=== PATIENT | female | born 1945 | race Caucasian/White ===

== ENCOUNTER 2024-02-22 01:16 | Day surgery (SDC) | payer MEDICARE, SELFPAY ==
[2024-02-01 13:06] VITALS: BMI 35.0
--- NOTE | 2024-02-03 10:38 | PC.NURSE ---
Spoke with _PATIENT_ regarding medication _ELIQUIS__. Pt. verbalizes understanding that the last dose of _ELIQUIS is to be taken on 02/02/2024 and the Endoscopist will instruct them when to restart after the procedure.
[2024-02-22 06:25] VITALS: BP 187/83; PULSE 56; RESP 18; TEMP 36.1; O2SAT 99; BMI 36.1
[2024-02-22] MEDS: LACTATED RINGERS 1,000 ML 150 ML IV CONT (06:28)
--- NOTE | 2024-02-22 07:24 | WPDANESEPPF ---
Anes - Initial Pre Proc Eval Procedure: Operation Date: 02/22/24 07:30 Proposed Procedures p Esophagogastroduodenoscopy & Colonoscopy - Dilip Villa MD Date/Time: 02/22/24 07:24 Surgeon: Dilip Villa MD Pre Op Diagnosis: GERD, Personal hx. colon polyps Patient Data Age: 78 Gender: F Height: 1.73 m Weight: 107.8 kg Last Vital Signs Temp 96.9 F L 02/22/24 06:25 Pulse 56 L 02/22/24 06:25 Resp 18 02/22/24 06:25 BP 187/83 H 02/22/24 06:25 Pulse Ox 99 02/22/24 06:25 O2 Del Method Room Air 02/22/24 06:25 Allergies Allergy/AdvReac Type Severity Reaction Status Date / Time adhesive tape Allergy Severe Swelling Verified 02/22/24 06:21 amlodipine Allergy Severe Swelling Verified 02/22/24 06:21 LOWER EXT. Iodinated Contrast Media Allergy Severe HEART Verified 02/22/24 06:21 ARRYTHMIA morphine Allergy Severe Dizziness Verified 02/22/24 06:21 codeine Allergy Intermediate Hallucinati Verified 02/22/24 06:21 ng latex Allergy Intermediate Itching Verified 02/22/24 06:21 Penicillins Allergy Intermediate Hives Verified 02/22/24 06:21 prednisone Allergy Intermediate HEART Verified 02/22/24 06:21 PALPITATIONS hydromorphone AdvReac Intermediate Nausea and Verified 02/22/24 06:21 Vomiting Sulfa (Sulfonamide AdvReac Intermediate Nausea and Verified 02/22/24 06:21 Antibiotics) Vomiting Home Medications Medication Instructions Recorded Confirmed Type Tums 500 1,000 mg PO DAILY 02/01/24 02/22/24 History apixaban 5 mg tablet (Eliquis) 5 mg PO BID 02/01/24 02/01/24 History aspirin 81 mg chewable tablet 81 mg PO DAILY 02/01/24 02/01/24 History fluticasone propionate 50 2 mcg intranasal DAILY PRN 02/01/24 02/22/24 History mcg/actuation nasal Congestion spray,suspension isosorbide mononitrate 30 mg 60 mg PO DAILY 02/01/24 02/01/24 History tablet,extended release 24 hr loratadine 10 mg tablet 10 mg PO DAILY PRN Allergy Symptoms 02/01/24 02/22/24 History losartan 50 mg tablet 50 mg PO BID 02/01/24 02/22/24 History metoprolol tartrate 50 mg tablet 50 mg PO BID 02/01/24 02/01/24 History nitroglycerin 0.4 mg sublingual 0.4 mg sublingual PRN PRN Angina 02/01/24 02/01/24 History tablet omeprazole 20 mg capsule,delayed 20 mg PO DAILY 02/01/24 02/22/24 History release rosuvastatin 20 mg tablet 20 mg PO HS 02/01/24 02/22/24 History spironolactone 25 mg tablet 25 mg PO DAILY 02/01/24 02/22/24 History Patient hx anesthesia problems: none Family hx anesthesia problems: none Results Review: All pre-operative results and documents have been reviewed as part of the pre-operative evaluation. [facility] Social History Social History Smoking status: Never smoker Alcohol intake: current Substance use: current Substance use type: does not use Living arrangements: with family Spiritual care concerns: No Anes - Eval Final PreProcedure Day of Procedure 02/22/24 07:24 Patient weight: obese Heart: regular rate and rhythm Lungs: clear to auscultation Airway: Mallampati scale class II Neurological: alert and oriented Last oral intake: >/= 8 hours ASA classification: III Emergent: no Anesthetic plan: proceed Anesthesia type and monitoring: general GIVS and standard monitoring Results Review: All pre-operative results and documents have been reviewed as part of the pre-operative evaluation. Informed Consent: The patient's anesthetic plan and its attendant risks and benefits were discussed with the patient/family/POA. Questions were solicited and answers provided to the satisfaction of the patient/family/POA.
--- NOTE | 2024-02-22 07:41 | PM.HPGS ---
History of Present Illness History of Present Illness Consent: Risks, benefits, and alternatives have been discussed and questions answered. Patient agrees to proceed with procedure. Chief complaint: GERD, Personal hx. colon polyps Narrative: Liana Hodges is a 78 year old female with colon polyp 5 years ago, also h/o GERD on ppi, last egd years ago Review of Systems Review of Systems: All systems reviewed & are unremarkable except as noted in HPI and below PMFSH Past Medical History Medical History (Updated 02/22/24 @ 07:41 by Dilip Villa MD) Colon polyp GERD (gastroesophageal reflux disease) Social History Social History Smoking status: Never smoker Alcohol intake: current Substance use: current Substance use type: does not use Living arrangements: with family Spiritual care concerns: No Meds Home Medications and Allergies Home Medications Medication Instructions Recorded Confirmed Type Tums 500 1,000 mg PO DAILY 02/01/24 02/22/24 History apixaban 5 mg tablet (Eliquis) 5 mg PO BID 02/01/24 02/01/24 History aspirin 81 mg chewable tablet 81 mg PO DAILY 02/01/24 02/01/24 History fluticasone propionate 50 2 mcg intranasal DAILY PRN 02/01/24 02/22/24 History mcg/actuation nasal Congestion spray,suspension isosorbide mononitrate 30 mg 60 mg PO DAILY 02/01/24 02/01/24 History tablet,extended release 24 hr loratadine 10 mg tablet 10 mg PO DAILY PRN Allergy Symptoms 02/01/24 02/22/24 History losartan 50 mg tablet 50 mg PO BID 02/01/24 02/22/24 History metoprolol tartrate 50 mg tablet 50 mg PO BID 02/01/24 02/01/24 History nitroglycerin 0.4 mg sublingual 0.4 mg sublingual PRN PRN Angina 02/01/24 02/01/24 History tablet omeprazole 20 mg capsule,delayed 20 mg PO DAILY 02/01/24 02/22/24 History release rosuvastatin 20 mg tablet 20 mg PO HS 02/01/24 02/22/24 History spironolactone 25 mg tablet 25 mg PO DAILY 02/01/24 02/22/24 History Allergies Allergy/AdvReac Type Severity Reaction Status Date / Time adhesive tape Allergy Severe Swelling Verified 02/22/24 06:21 amlodipine Allergy Severe Swelling Verified 02/22/24 06:21 LOWER EXT. Iodinated Contrast Media Allergy Severe HEART Verified 02/22/24 06:21 ARRYTHMIA morphine Allergy Severe Dizziness Verified 02/22/24 06:21 codeine Allergy Intermediate Hallucinati Verified 02/22/24 06:21 ng latex Allergy Intermediate Itching Verified 02/22/24 06:21 Penicillins Allergy Intermediate Hives Verified 02/22/24 06:21 prednisone Allergy Intermediate HEART Verified 02/22/24 06:21 PALPITATIONS hydromorphone AdvReac Intermediate Nausea and Verified 02/22/24 06:21 Vomiting Sulfa (Sulfonamide AdvReac Intermediate Nausea and Verified 02/22/24 06:21 Antibiotics) Vomiting Vital Signs Vital Signs - 24 hr 02/22/24 06:25 Temperature 96.9 F L Pulse Rate 56 L Respiratory Rate 18 Blood Pressure 187/83 H Pulse Oximetry 99 Oxygen Delivery Room Air Exam Const: General: comfortable and no acute distress HENMT: Face/Nose/Sinus: Normal nares present Eyes: General: appearance normal, both eyes and all related structures Neck: Neck: no JVD Resp: Auscultation: clear to auscultation bilaterally Cardio: Rate: regular rate Rhythm: regular rhythm GI: Inspection: non-distended GI Palp: Yes Soft to palpation Skin: General skin exam: normal color Neuro: General: gait normal Speech: normal speech Extrem: General: normal to inspection Psych: Mental Status: mental status grossly normal Assessment and Plan Assessment and plan (1) GERD (gastroesophageal reflux disease): Code(s): K21.9 - Gastro-esophageal reflux disease without esophagitis Status: Acute Assessment and Plan: egd (2) Colon polyp: Code(s): K63.5 - Polyp of colon Status: Acute Assessment and Plan: colonoscopy
--- NOTE | 2024-02-22 07:57 | SUR.OPER ---
EGD: [id number] COLON: Start 7413
[2024-02-22 08:11] VITALS: BP 117/43; PULSE 50; RESP 18; O2SAT 98
[2024-02-22 08:21] VITALS: BP 132/45; PULSE 47; RESP 15; O2SAT 100
[2024-02-22 08:31] VITALS: BP 143/49; PULSE 42; RESP 14; O2SAT 100
== END 2024-02-22 08:52 | disposition home or self-care (01) ==
PROVIDERS: PCP Nurse Practitioner; Referring Provider Nurse Practitioner; Visit Provider Internal Medicine Gastroenterology
PROC: 0DJ08ZZ Inspection of Upper Intestinal Tract, Via Natural or Artificial Opening Endoscopic (ICD-10-PCS; CPT 43235; principal; 2024-02-22 07:30)
DX: Z12.11 Encounter for screening for malignant neoplasm of colon (principal); K21.00 Gastro-esophageal reflux disease with esophagitis, without bleeding; K22.2 Esophageal obstruction; K29.50 Unspecified chronic gastritis without bleeding; K64.8 Other hemorrhoids; K57.30 Diverticulosis of large intestine without perforation or abscess without bleeding; E66.9 Obesity, unspecified; Z68.36 Body mass index [BMI] 36.0-36.9, adult; Z79.01 Long term (current) use of anticoagulants; Z79.82 Long term (current) use of aspirin; Z86.010 Personal history of colon polyps
CPT/HCPCS: 43239; 43249; G0105; 88305; C1726; J2704; J7120

== ENCOUNTER 2024-02-29 22:41 | Emergency (ER) | payer MEDICARE, SELFPAY ==
[2024-02-29] VITALS (10 sets, daily range): BP systolic 163–186; BP diastolic 51–74; PULSE 59–72; RESP 10–25; TEMP 36.6; O2SAT 94–99
--- NOTE | ~2024-02-29 | XR_ITS ---
EXAMINATION: XR chest 1V portable Exam Date/Time: 02/29/2024 22:55 CDT HISTORY: chest pain Comparison: The. RESULT: Lines, tubes, and devices: None. Lungs and pleura: Streaky bibasilar scar/atelectasis, otherwise clear. Cardiomediastinal silhouette: Normal heart size.. Other: No acute osseous or upper abdominal finding. Hyperdensity over the midthoracic spine. IMPRESSION: No acute cardiopulmonary process. Hyperdensity over the midthoracic spine, possibly representing summation artifact. A lateral view of the chest and/or thoracic spine radiographs would be helpful for further evaluation, particularly if there is associated back pain. Reviewed, dictated and finalized at location K. IMPRESSION: No acute cardiopulmonary process. Hyperdensity over the midthoracic spine, possibly representing summation artifa ct. A lateral view of the chest and/or thoracic spine radiographs would be help ful for further evaluation, particularly if there is associated back pain.
--- NOTE | 2024-02-29 22:43 | ECG_ITS ---
Test Date: 2024-02-29 22:48:41 Measurements Intervals [place] Rate: 65 P: 42 NE: 280 QRS: -2 QRSD: 106 T: 70 QT: 396 QTc: 413 Interpretive Statements SINUS RHYTHM WITH FIRST DEGREE AV BLOCK DELAYED PRECORDIAL R/S TRANSITION LEFT VENTRICULAR HYPERTROPHY AND ST-T CHANGE MINIMAL Q WAVES- HIGH LATERAL LEADS BASELINE ARTIFACT- I, II, III BORDERLINE ECG No previous ECG available for comparison Electronically Signed On 03-01-2024 05:44:25 CDT by Arnel Blake D.O.
[2024-02-29 22:51] LABS: Basophils Absolute Auto 0.1 K/mm3 (0.0-0.1); Basophils Percent Auto 0.9 % (0.2-1.2); Eosinophils Absolute Auto 0.2 K/mm3 (0-0.3); Eosinophils Percent Auto 1.9 % (0-4.4); Hemoglobin 12.6 g/dL (12.0-15.0); Immature Granulocyte Absolute 0.02 K/mm3 (0.00-0.031); Immature Granulocyte Percent A 0.3 % (0-0.5); Lymphocytes Absolute Auto 2.79 K/mm3 (0.9-3.2); Mean Corpuscular HGB Conc 33.2 g/dl (32-36); Mean Corpuscular Hemoglobin 31.3 pg (26-34); Mean Corpuscular Volume 94.3 fl (80-100); Monocytes Absolute Auto 0.8 K/mm3 (0.1-0.6); Monocytes Percent Auto 10.8 % (2.6-8.5); Neutrophils Absolute Auto 3.9 K/mm3 (1.3-6.7); Neutrophils Percent Auto 50.1 % (45.5-73.1); Platelet Count Result 288 k/mm3 (150-375); Red Blood Count 4.03 M/mm3 (4.2-5.4); Red Cell Distribution Width 12.3 % (11.5-14.5); White Blood Count 7.8 K/mm3 (4.5-10.0)
[2024-02-29 23:02] LABS: INR 1.1; Prothrombin Time 14.2 Seconds (11.1-14.7)
[2024-02-29 23:03] LABS: Alanine Aminotransferase 13 U/L (6-35); Albumin Level 4.5 g/dL (3.5-5.1); Alkaline Phosphatase 127 U/L (38-126); Anion Gap 10 mmol/L (4-12); Aspartate Amino Transferase 22 U/L (14-36); Bilirubin,Total 0.4 mg/dL (0.2-1.3); Blood Urea Nitrogen 13 mg/dL (7-17); Calcium 9.3 mg/dL (8.4-10.2); Carbon Dioxide 26 mmol/L (22-30); Chloride 100 mmol/L (98-107); Estimated CRCL calculation 68 ml/min; Estimated Glomerular Filt Rate > 60; Glucose 107 mg/dL (65-110); Lipase 118 U/L (23-300); Partial Thromboplastin Time 37.7 Seconds (22.3-36.8); Potassium 3.9 mmol/L (3.4-5.0); Sodium 136 mmol/L (137-145)
[2024-02-29 23:15] LABS: Troponin I < 0.012 ng/mL (0.000-0.034)
[2024-03-01] VITALS (30 sets, daily range): BP systolic 135–192; BP diastolic 54–80; PULSE 51–67; RESP 10–23; TEMP 36.6; O2SAT 95–100
--- NOTE | 2024-03-01 00:08 | ED.GENADULT ---
HPI - General Adult General Chief complaint: Chest Pain Stated complaint: CHEST PAIN W/ CARDIAC HISTORY Time Seen by Provider: 02/29/24 23:00 History of Present Illness HPI narrative: Patient is a 78-year-old female who presents emergency department with chief complaint of chest pain. Patient reports that she has prior history of cardiac disease has approximately 5 stents patient reports he has history of hypertension. Patient reports that she had some discomfort in her chest also was blood pressure was running high patient states the discomfort in her chest she has very mild Related Data Home Medications Medication Instructions Recorded Confirmed Tums 500 1,000 mg PO DAILY 02/01/24 02/22/24 apixaban 5 mg tablet (Eliquis) 5 mg PO BID 02/01/24 02/22/24 aspirin 81 mg chewable tablet 81 mg PO DAILY 02/01/24 02/22/24 fluticasone propionate 50 2 mcg intranasal DAILY PRN 02/01/24 02/22/24 mcg/actuation nasal Congestion spray,suspension isosorbide mononitrate 30 mg 60 mg PO DAILY 02/01/24 02/22/24 tablet,extended release 24 hr loratadine 10 mg tablet 10 mg PO DAILY PRN Allergy Symptoms 02/01/24 02/22/24 losartan 50 mg tablet 50 mg PO BID 02/01/24 02/22/24 metoprolol tartrate 50 mg tablet 50 mg PO BID 02/01/24 02/22/24 nitroglycerin 0.4 mg sublingual 0.4 mg sublingual PRN PRN Angina 02/01/24 02/22/24 tablet omeprazole 20 mg capsule,delayed 20 mg PO DAILY 02/01/24 02/22/24 release rosuvastatin 20 mg tablet 20 mg PO HS 02/01/24 02/22/24 spironolactone 25 mg tablet 25 mg PO DAILY 02/01/24 02/22/24 Allergies Allergy/AdvReac Type Severity Reaction Status Date / Time adhesive tape Allergy Severe Swelling Verified 02/22/24 06:21 amlodipine Allergy Severe Swelling Verified 02/22/24 06:21 LOWER EXT. Iodinated Contrast Media Allergy Severe HEART Verified 02/22/24 06:21 ARRYTHMIA morphine Allergy Severe Dizziness Verified 02/22/24 06:21 codeine Allergy Intermediate Hallucinati Verified 02/22/24 06:21 ng latex Allergy Intermediate Itching Verified 02/22/24 06:21 Penicillins Allergy Intermediate Hives Verified 02/22/24 06:21 prednisone Allergy Intermediate HEART Verified 02/22/24 06:21 PALPITATIONS hydromorphone AdvReac Intermediate Nausea and Verified 02/22/24 06:21 Vomiting Sulfa (Sulfonamide AdvReac Intermediate Nausea and Verified 02/22/24 06:21 Antibiotics) Vomiting Review of Systems Review of Systems: A 10 system review of systems was completed on the patient and is negative except for what is stated in the HPI. Nursing and ancillary documentation was reviewed. [facility] Past Medical History Medical History Colon polyp GERD (gastroesophageal reflux disease) Social History Social History Smoking status: Never smoker Alcohol intake: current Substance use: current Substance use type: does not use Living arrangements: with family Spiritual care concerns: No Exam Narrative: GENERAL: Well-appearing, well-nourished, and in no acute distress. HEAD: Normocephalic, atraumatic. EYES: PERRLA and EOMI. ENT: Nares clear, no rhinorrhea or epistaxis. Mucous membranes moist. NECK: Supple. CHEST: Clear to auscultation. No respiratory distress. HEART: Regular rate and rhythm. No murmur heard. Normal peripheral pulses. ABDOMEN: Soft, nontender, nondistended, normal active bowel sounds. EXTREMITIES: Normal range of motion. No edema. SKIN: Warm, dry, no rash. NEURO: No focal deficits. Alert and oriented x3. PSYCH: Normal mood and affect. Course Vital Signs Vital signs: Vital Signs Temperature 36.6 C 02/29/24 22:30 Pulse Rate 72 02/29/24 22:30 Respiratory Rate 16 02/29/24 22:30 Blood Pressure 185/74 H 02/29/24 22:30 Pulse Oximetry 97 02/29/24 22:30 Oxygen Delivery Room Air 02/29/24 22:30 Temperature 36.6 C 02/29/24 22:3
--- NOTE | 2024-03-01 01:50 | ECG_ITS ---
Test Date: 2024-03-01 01:57:06 Measurements Intervals [place] Rate: 57 P: 17 ID: 286 QRS: -8 QRSD: 104 T: 28 QT: 406 QTc: 396 Interpretive Statements SINUS BRADYCARDIA WITH FIRST DEGREE AV BLOCK DELAYED PRECORDIAL R/S TRANSITION LEFT VENTRICULAR HYPERTROPHY MINIMAL Q WAVES- HIGH LATERAL LEADS BORDERLINE ECG Compared to ECG 02/29/2024 22:48:41 HEART RATE HAS DECREASED Electronically Signed On 03-01-2024 05:48:17 CDT by Arnel Blake D.O.
[2024-03-01 02:24] LABS: Troponin I 0.013 ng/mL (0.000-0.034)
== END 2024-03-01 03:41 | disposition home or self-care (01) ==
PROVIDERS: Emergency Provider Emergency Medicine; PCP Nurse Practitioner
DX: R07.89 Other chest pain (principal); I10 Essential (primary) hypertension; K21.9 Gastro-esophageal reflux disease without esophagitis; Z95.5 Presence of coronary angioplasty implant and graft; Z86.010 Personal history of colon polyps; Z79.01 Long term (current) use of anticoagulants; Z79.82 Long term (current) use of aspirin; Z79.899 Other long term (current) drug therapy; I44.0 Atrioventricular block, first degree; I51.7 Cardiomegaly
CPT/HCPCS: 36415; 71045; 80053; 83690; 84484; 85025; 85610; 85730; 93005; 99284

== ENCOUNTER 2024-10-28 19:57 | Inpatient (IN) | payer MEDICARE, SELFPAY ==
--- NOTE | ~2024-10-28 | XR_ITS ---
XR chest 2V Ordering provider: Ankur Dumont History: 78 years Female with . weakness . Comparison: February 29, 2024 FINDINGS: MEDIASTINUM: The cardiac silhouette is not enlarged. Calcification in the subcarinal lymph nodes. LUNGS: No infiltrates, effusions or pneumothorax. OTHER: No free air under the diaphragm. Degenerative changes of the spine. IMPRESSION: No acute cardiopulmonary pathology. Reviewed, dictated and finalized at location A.
--- NOTE | ~2024-10-28 | MR_ITS ---
EXAMINATION: MR brain/brain stem wo/w con DATE: 10/30/2024 15:30 INDICATION: Left clivus and petrous lesion TECHNIQUE: Magnetic resonance imaging (MRI) of the brain and brainstem was performed without and with 20 mL ProHance intravenous contrast. Sequences included sagittal and axial T1-weighted SE, axial dif fusion-weighted FS SE, axial 3D SWAN, axial T2-weighted FLAIR, and axial T2-weighted FSE. Postcontras t axial and coronal T1-weighted SE was obtained. Apparent diffusion coefficient (ADC) maps were creat ed. COMPARISON: None. FINDINGS: There are no areas of restricted diffusion to suggest acute infarction. No intracranial hemorrhage or abnormal intracranial mass lesion. There are no intraparenchymal signal abnormalities seen on the ot her pulse sequences. The ventricles are symmetric and normal in size. There are no abnormal intracran ial, extra-axial fluid collections. Flow voids are seen in the cerebral arteries on the T2-weighted s equences consistent with their expected patency. Mild mucosal thickening in the paranasal sinuses wit h left maxillary sinus mucous retention cyst. Visualized orbits and soft tissues are unremarkable. Th ere are no areas of abnormally enhancing brain lesions on the post contrast images. High T2 and low T 1 signal without restricted diffusion or evident enhancement of a cystic appearing lytic lesion invol ving the left side of the clivus and the left petrous apex. IMPRESSION: 1. Nonenhancing cystic-appearing lytic lesion involving the left side of the clivus and the left sage ous apex. Constellation of findings most consistent with either a neuroenteric cyst, arachnoid cyst, intraosseous extension of an epidermoid cyst or ecchordosis physaliphora. Cholesteatoma would be less likely given the lack of restricted diffusion and there is no evident enhancement to suggest chordom a or other malignant neoplasm. Reviewed, dictated and finalized at location A. IMPRESSION: 1. Nonenhancing cystic-appearing lytic lesion involving the left side of the cl ivus and the left petrous apex. Constellation of findings most consistent with either a neuroenteric cyst, arachnoid cyst, intraosseous extension of an epider moid cyst or ecchordosis physaliphora. Cholesteatoma would be less likely given the lack of restricted diffusion and there is no evident enhancement to sugges t chordoma or other malignant neoplasm.
--- NOTE | ~2024-10-28 | NM_ITS ---
EXAMINATION: NM GI bleeding DATE: 11/03/2024 12:06 INDICATION: Gastrointestinal bleed TECHNIQUE: 22.6 mCi Tc 99m in vitro labeled red cells administered intravenously. Scintigraphic imag es of the abdomen were obtained through 1 hour. FINDINGS: No pattern of abnormal activity is seen in the abdomen or pelvis to suggest gastrointestina l hemorrhage. IMPRESSION: 1. No scintigraphic evidence for active gastrointestinal bleeding. Reviewed, dictated and finalized at location A.
--- NOTE | ~2024-10-28 | CT_ITS ---
EXAMINATION: CT brain wo con DATE: 10/29/2024 02:52 INDICATION: Weakness and nausea TECHNIQUE: Computed tomography (CT) of the head was performed without intravenous contrast. Sagittal and coronal reconstructions were performed. The mA was adjusted according to patient size. Iterative reconstruction technique was employed. The dose-length product was 605.33 mGy-cm. COMPARISON: None FINDINGS: No acute intracranial hemorrhage, acute infarction or abnormal extra axial fluid collection. Ventricl es are normal and symmetric. No mass/mass effect. The orbits, paranasal sinuses and mastoid air cells are normal. Large likely benign lytic lesion with narrow zone of transition with thin sclerotic dillon ins involving the left side of the clivus and the left petrous apex. The region of ostial lysis is fi lled with fluid attenuation with no evident soft tissue component. IMPRESSION: 1. No acute intracranial process. 2. Nonaggressive appearing likely chronic benign lytic lesion involving the left side of the clivus a nd the left petrous apex without evident solid soft tissue component. Recommend 0further evaluation w ith pre and postcontrast MRI. Reviewed, dictated and finalized at location A. IMPRESSION: 1. No acute intracranial process. 2. Nonaggressive appearing likely chronic benign lytic lesion involving the lef t side of the clivus and the left petrous apex without evident solid soft tissu e component. Recommend 0further evaluation with pre and postcontrast MRI.
--- NOTE | ~2024-10-28 | CT_ITS ---
CT chest abdomen pelvis wo con Ordering provider: Bill Arteaga MD History: 78 years Female with . ? GI bleed . Comparison: None. Technique: CT chest, abdomen and pelvis without IV and without oral contrast. Radiation reduction alise hnique utilized.The dose-length product was 1845.01 mGy-cm. FINDINGS: CHEST: --VISUALIZED THORACIC INLET: Normal. --MEDIASTINUM: Aorta/coronary arteries: Mild atheromatous disease. Heart/other: The heart is not enlarged. Lymph nodes: No mediastinal or hilar adenopathy. Subcarinal calcified lymph nodes are noted. --LUNGS: No pulmonary nodules or masses. No infiltrates or effusions. No pneumothorax. --MUSCULOSKELETAL: Soft tissues: The superficial soft tissues are normal. Bones: Age appropriate degenerative changes of the spine. No suspicious bony lytic or sclerotic lesio ns. ABDOMEN/PELVIS: --MUSCULOSKELETAL: Bones: Age appropriate degenerative changes of the spine. No suspicious bony lytic or sclerotic lesio ns. Superficial soft tissues: The superficial soft tissues are normal. --UPPER ABDOMINAL ORGANS: Liver: Tiny cyst is seen in segment #8. Gallbladder: Contracted. Spleen: Normal. Calcified granulomas. Stomach/duodenum: Normal. Pancreas: Normal. Adrenals: Normal. Kidneys: Tiny cyst in the right kidney upper pole. Minimal fullness of the right ureter with no stone s. Small hyperdense area seen in the left kidney midpole which may be hemorrhagic cyst or a tiny mass . Follow-up advised. --PELVIC ORGANS: The bladder is underfilled with thickened wall. Evaluation for cystitis advised. No bladder stones. --BOWEL AND MESENTERY: Colon: No evidence of diverticulitis. Hyperdense material seen in the left side of the colon distally in the descending colon and in the diverticula of the sigmoid colon. Possibility of blood cannot be excluded although this likely. Colonoscopy is advised. No evidence of appendicitis. Small Bowel: Normal. No obstruction. Peritoneum/mesentery: No free air or free fluid. No mesenteric lymphadenopathy. --RETROPERITONEUM: Aneurysmal dilatation the distal aorta measuring 2.5 x 2.4 cm is noted. Follow-up advised. Mild atheromatous disease of the abdominal aorta. No retroperitoneal lymphadenopathy. IMPRESSION: CHEST: 1. No acute cardiopulmonary pathology. 2. Subcarinal calcified lymph nodes. ABDOMEN/PELVIS: 1. No evidence of appendicitis, diverticulitis or intestinal obstruction. 2. Hyperdense material in the descending and sigmoid colon. Blood cannot be excluded. Colonoscopy ad vised. 3. Small hyperdense area in the left kidney lower pole. Follow-up advised. 4. Small aneurysmal dilatation in the distal aorta measuring 2.5 x 2.4 cm. Reviewed, dictated and finalized at location A. IMPRESSION: CHEST: 1. No acute cardiopulmonary pathology. 2. Subcarinal calcified lymph nodes. ABDOMEN/PELVIS: 1. No evidence of appendicitis, diverticulitis or intestinal obstruction. 2. Hyperdense material in the descending and sigmoid colon. Blood cannot be ex cluded. Colonoscopy advised. 3. Small hyperdense area in the left kidney lower pole. Follow-up advised. 4. Small aneurysmal dilatation in the distal aorta measuring 2.5 x 2.4 cm.
--- OUTSIDE RECORDS SUMMARY | 2024-10-28 19:59 | XMS_ITS | Encounter Summary ---
Author Organization [facility] Address [address] [place] [address] Care Team Providers Care Spine Surgeon Name Role Phone Mary Delgado MD Primary Care Provider [phone] Reason for Visit * Reason Comments Medication Refill Encounter Details Date Type Department Care Team ([facility] st Contact Info) Description 09/27/2015 Refill [facility] [place] [address] [place] [address] [address] [place] [phone] Mary Delgado MD [address] [place] [phone] Social History Tobacco Use Types Packs/Day Years Used Date Smoking Tobacco: Never Smokeless Tobacco: Never Alcohol Use Standard Drinks/Week Comments No 0 (1 standard drink = 0.6 oz pur e alcohol) Comments No Sex and Gender Information Value Date Recorded Sex Assigned at Not on file Legal Sex Female 1:18 PM CDT Gender Identity Not on file Sexual Orientation Not on file Occupation Industry Job Start Date Job End Date Not on file Not on file Not on file Not on file Not on file Not on file Not on file Not on file documented as of this encounter Plan of Treatment Not on file documented as of this encounter Visit Diagnoses Not on filedocumented in this encounter Additional Health Concerns Infection Onset Date Last Indicated Resolved Time C Diff 11/02/2019 12/29/2019 10/29/2022 1:00 AM CDT R/O COVID-19 05/08/2020 05/09/2020 05/10/2020 3:15 PM DIRECTOR GLOBAL COVID-19 05/09/2020 05/09/202006/08/2020 1:16 AM DIRECTOR GLOBAL COVID-19 03/05/2022 03/05/2022 03/25/2022 1:16 AM CDT documented as of this encounter Care Teams Spine Surgeon Relationship Specialty Start Date End Date Mary Delgado MD [address] [place] [phone] PCP - General Family Practice 12/22/14 02/18/24 documented as of this encounter
--- OUTSIDE RECORDS SUMMARY | 2024-10-28 19:59 | XMS_ITS | Clinical Summary ---
Author Organization [facility] Address [address] [place] [address] Care Team Providers Care Competitive Intelligence Analyst Name Role Phone Mary Delgado MD Primary Care Provider [phone] Source Comments [facility],non-owned Affiliates and Associated Physician Practices is amultiple site organization consisting of ambulatory clinics and hospital sitesin [place], [place], [place] and [place]. This disclosure is being madepursuant to the Care Everywhere program and may not contain all information available regarding this patient. Last updated 18.[facility] Allergies Active Allergy Reactions Criticality Noted Date Comments Amlodipine Base Swelling 02/28/2021 Codeine Vision Changes 02/28/2021 Hydromorphone Nausea and/or Vomiting,Other Low 10/28/2013 Hypertension Latex Rash,Itching Medium 10/28/2013 Morphine Dizziness,Headache 11/05/2010 Other 11/05/2010 Dye used in cardiac cath Penicillins Rash,Itching Medium 11/05/2010 Sulfa Drugs Itching 11/05/2010 Medications * Be aware that medications may not be up to date on this document. Alwaysverify current medications with the patient. simvastatin (ZOCOR) 40 MG tablet Take 40 mg by mouth at bedtime Active ticagrelor (BRILINTA) 90 MG tablet Take 90 mg by mouth 2 times daily Active aspirin (ASPIRIN) 81 MG chew tablet Take 81 mg by mouth once daily Active omeprazole (PRILOSEC) 20 MG capsule Take 20 mg by mouth once daily Active nitroGLYCERIN (NITROSTAT) 0.4 MG tablet Dissolve 1 tablet under the tongue every 5 minutes as needed for Chest Pain 1 Active spironolactone (ALDACTONE) 25 MG tablet Take 25 mg by mouth once daily 1 Active losartan (COZAAR) 50 MG tablet Take 50 mg by mouth 2 times daily 1 Active metoprolol tartrate (LOPRESSOR) 50 MG tablet Take 50 mg by mouth 2 times daily 1 Active acetaminophen (TYLENOL) 325 MG tablet Take 650 mg by mouth every 6 hours as needed for Fever, Pain or Headache Maximum allowable Acetaminophen amount = 4 Grams (4000 mg) / 24 hours. Active calcium carbonate (TUMS) 750 MG chew tablet Take 600 mg by mouth every 6 hours as needed for Indigestion 0 Active loratadine (CLARITIN) 10 MG tablet Take 10 mg by mouth once daily as needed for Allergies Active Active Problems Problem Noted Date Diagnosed Date Chest pain 02/28/2021 Social History Tobacco Use Types Packs/Day Years Used Date Smoking Tobacco: Never Smokeless Tobacco: Never Alcohol Use Standard Drinks/Week Comments No 0 (1 standard drink = 0.6 oz pur e alcohol) Comments Unknown Sex and Gender Information Value Date Recorded Sex Assigned at Not on file Legal Sex Female 11:48 AM JIG MAKER Gender Identity Not on file Sexual Orientation Not on file Last Filed Vital Signs Vital Sign Reading Time Taken Comments Blood Pressure 119/60 03/01/2021 4:30 PM CDT Pulse 57 03/01/2021 4:30 PM CDT Temperature 36.6 C (97.9 F) 03/01/2021 4:30 PM CDT Respiratory Rate 16 03/01/2021 4:30 PM CDT Oxygen Saturation 97% 03/01/2021 4:30 PM CDT Inhaled Oxygen Concentration - - Weight 104.3 kg (230 lb) 02/28/2021 10:56 PM CDT Height 172.7 cm (5' 8 ) 02/28/2021 10:56 PM CDT Body Mass Index 34.97 02/28/2021 10:56 PM CDT Plan of Treatment Health Maintenance Due Date Last Done Comments BONE DENSITY TESTING 1945 HEPATITIS C SCREENING 11/12/1965 DTAP/TDAP/TD VACCINES (1 - Tdap) 11/16/1966 PNEUMOCOCCAL VACCINE 50+ (1 of 1 - PCV) 11/16/1997 ZOSTER VACCINE (1 of 2) 11/16/1997 Respiratory Syncytial Virus (RSV) Vaccine Pt: or over 60 yrs (1 - 1-dose 75+ series) 11/16/2022 COVID-19 VACCINE (1 - 2023-2 5 season) 2024 DEPRESSION SCREENING 06/15/2024 MEDICARE AWV CALENDAR YEAR 2024 INFLUENZA VACCINE (Season Ended) 2025 HEPATITIS B VACCINE Aged Out No longe r eligible based on patient's age to complete this topic HIB VACCINE Aged Out No longer eligi ble based on patient's age to complete this topic HPV VACCINE Aged Out No longer eligi ble based on patient's age to complete this topic MENINGOCOCCAL (Group B) VACC INE SHARED DECISION-MAKING Aged Out No longer eligibl e based on patient's age to complete this topic MENINGOCOCCAL GROUPS A/C/Y/W VACCINE Aged Out No longer eligible b ased on patient's age to complete this topic Insurance COVENTRY MEDICARE [employer] MANAGED MEDICARE ADV SELF PAY NO INSURANCE Member Subscriber Plan / Payer (Ef fective for All Dates) Name:Liana Castro I Member ID:Not on file Relation to Subscriber:Not on file Name:LIANA CASTRO I Subscriber ID:Not on file (Home) Address: [address] [place] [id number] Payer ID:Not on file Group ID:Not on file Type:Self Pay Address: [facility] MANAGED MEDICARE ADV Advance Directives * Full Code (Latest Code Status on File) Date Activated Date Inactivated Comments 02/28/2021 10:39 PM 03/01/2021 8:14 PM * Full Code Date Activated Date Inactivated Comments 02/28/2021 10:16 PM 02/28/2021 10:39 PM Care Teams Competitive Intelligence Analyst Relationship Specialty Start Date End Date Mary Delgado MD [address] [place] [phone] PCP - General Family Medicine 02/28/21
--- OUTSIDE RECORDS SUMMARY | 2024-10-28 19:59 | XMS_ITS | Clinical Summary ---
Author Organization [facility] Address [address] [place] [address] Care Team Providers Care Anesthesiology Crna Name Role Phone Unavailable Primary Care Provider Unavailabl e Allergies Active Allergy Reactions Criticality Noted Date Comments Adhesive Other (See Comments) 11/25/2016 Redness/itching/bu rning Amlodipine Swelling Low 01/25/2020 Codeine Delirium Medium 05/31/2013 Hydromorphone (Bulk) Nausea and Vomiting Low 2013 Iodinated Contrast Media Arrhythmia High 05/31/2013 Latex Itching Low 03/30/2014 Morphine Dizziness,Headache Low 07/10/2016 Penicillins Rash Low 05/31/2013 Prednisone Palpitations Low 03/23/2016 Lileqwq-Dwm-Tdt Reductase Inhibitors Muscle Pain Low 11/26/2016 Sulfa (Sulfonamide Antibiotics) Nausea and Vomiting Low 05/31/2013 Medications aspirin (SILVIA CHEWABLE) 81 mg Tablet, Chewable Take 81 mg by mouth daily. Active loratadine (CLARITIN) 10 mg tablet Take 10 mg by mouth 1 time daily as needed . Active calcium as carbonate (TUMS ES) 750 mg (300 mg elemental) Tablet, Chewable Take 2 Tablets (600 mg) by mouth every 6 hours as needed for Dyspepsia or Indigestion. 30 Tablet 020 Active hydrALAZINE (APRESOLINE) 25 mg tablet Take 1 Tablet (25 mg) by mouth 1 time daily as needed for Other (See Comment) (SBP > 160/90). 30 Tablet 023 Active nitroglycerin (NITROSTAT) 0.4 mg Tablet, Sublingual PLACE 1 TAB UNDER TONGUE EVERY 5 MINUTES NEEDED FOR CHEST PAIN 25 Tablet 023 Active simvastatin (ZOCOR) 40 mg tabletIndications:Pure hypercholesterolemia TAKE 1 TABLET BY MOUTH LATE IN THE DAY 90 Tablet 3 023 Active fluticasone propionate (FLONASE) 50 mcg/spray [place], Suspension nasal inhaler ADMINISTER TWO SPRAYS IN EACH NOSTRIL DAILY 48 Gram 023 Active losartan (COZAAR) 50 mg tabletIndications:Essen tial hypertension take one tablet by mouth twice daily 180 Tablet 1 023 Active methocarbamoL (ROBAXIN) 500 mg tablet Take 1 Tablet (500 mg) by mouth 4 times daily. 40 Tablet 1 024 Active Additional Information Patient taking differently:500 mg OralFOUR TIMES DAILY PRN, Spasm, Reported on 11/10/2023 traZODone (DESYREL) 50 mg tablet Take 1 Tablet (50 mg) by mouth daily at bedtime. 30 Tablet 2 024 Active Additional Information Patient taking differently:50 mg OralNIGHTLY PRN, Insomnia, Reported on 11/10/2023 Eliquis 5 mg tablet take one tablet by mouth twice daily 60 Tablet 6 024 Active spironolactone (ALDACTONE) 25 mg tablet take one tablet by mouth every day 90 Tablet 1 024 Active isosorbide mononitrate (IMDUR) 30 mg Extended Release 24 hour tablet Take 60 mg by mouth daily. 024 Active metoprolol tartrate (LOPRESSOR) 50 mg tablet take one tablet by mouth twice daily 180 Tablet 2 024 Active omeprazole (PriLOSEC) 20 mg Capsule, Delayed Release(E.C.) take one capsule by mouth daily 90 Capsule 1 024 Active Active Problems Patient Care Coordination No te Formatting of this note migh t be different from the original. Casino Floorperson-Dr. 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 ([place]) Problem Noted Date Diagnosed Date Palpitations 11/05/2022 Dizziness 11/05/2022 Use of cane as ambulatory aid 10/01/2022 Abnormal finding of kidney 10/01/2022 Old [place] (myocardial infarction) 01/24/2022 Obesity 11/06/2021 Overview (08/27/2022): Query 3.8.23 mh Per PVQ JOSEP on CPAP 09/14/2020 Paroxysmal atrial fibrillation 05/01/2020 GERD (gastroesophageal reflux disease) 7 Statin intolerance 02/05/2016 Coronary artery disease invo lving redding coronary artery of redding heart without angina pectoris 04/19/2014 S/P coronary artery stent placement 04/19/2014 HLD (hyperlipidemia) 03/30/2014 Contrast media allergy 03/30/2014 Personal history of colonic polyps 07/21/2013 Diverticulosis 07/18/2013 Internal hemorrhoids 07/18/2013 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 HTN (hypertension) 06/02/2013 Headache(784.0) 06/02/2013 Generalized anxiety disorder 06/02/2013 Resolved Problems Problem Noted Date Diagnosed Date Resolved Date Hyperparathyroidism 11/23/2023 12/09/19 24 Left thyroid nodule 11/23/2023 12/09/19 24 COVID-19 virus detected 03/05/2022 06/0 11/2022 Hyponatremia 01/20/2020 11/18/2022 Chest pain 08/12/2019 11/18/2022 Chest pain 10/10/2016 10/25/2021 Allergic rhinitis 10/10/2016 11/18/2022 Dehydration 03/30/2014 10/25/2021 Encounters Date Type Department Care Team Description 10/18/2024 External Device Data STL ABSTRACTION Provider, Abstract 08/23/2024 External Device Data STL ABSTRACTION Provider, Abstract 08/23/2024 External Device Data STL ABSTRACTION Provider, Abstract from Last 3 Months Immunizations Immunization Administration Dates Next Due (PNEUMOVAX 23)(50 YRS UP) PN EUMOCOCCAL POLYSACCHARIDE (PPV23) 0.5 ML, IM 10/11/2016 (PREVNAR 13)(6 WKS UP) PNEUM OCOCCAL CONJUGATE (PCV13) 0.5 ML, IM 06/06/2014 Skin Test TB 05/05/2016,11/28/2014,11/21/2014 Family History Medical History Relation Name Comments Cancer Father Prostate Colon Cancer Mother Colon Polyps Mother Heart Disease Mother Hypertension Mother Osteoporosis Mother Other Mother sepsis Stroke Mother Thyroid Disease Sister Breast Cancer Neg Hx Ovarian Cancer Neg Hx Relation Name Status Comments Father Mother Sister Social History Tobacco Use Types Packs/Day Years Used Date Smoking Tobacco: Never Smokeless Tobacco: Never Tobacco Cessation:Counseling Given: No Alcohol Use Standard Drinks/Week Comments No 0 (1 standard drink = 0.6 oz pur e alcohol) Social Connections Answer Date Recorded In a typical week, how many times do you talk on the phone with family, friends, or neighbors? Three times a week 04/25/2020 How often do you get togethe r with friends or relatives? Once a week 04/25/2020 How often do you attend chur or synagogue services? More than 4 times per year 04/25/2020 Do you belong to any clubs o r organizations such as oriental orthodox groups, unions, fraternal or athletic groups, or school groups? No 04/25/2020 How often do you attend meet ings of the clubs or organizations you belong to? More than 4 times per year 04/25/2020 Marital Status Not on file 04/25/2020 Financial Resource Strain Answer Date R ecorded How hard is it for you to pa y for the very basics like food, housing, medical care, and heating? Not hard at all 08/14/2022 Food Insecurity Answer Date Recorded In the past 12 months, have you worried that your food would run out before you had money to buy more? Never true 08/14/2022 In the past 12 months, did y ou run out of food and didn't have money to buy more? Never true 08/14/2022 Transportation Needs Answer Date Record ed In the past 12 months, has l ack of transportation kept you from medical appointments or from getting medications? No 08/14/2022 Lack of Transportation (Non-Medical) Not on file 08/14/2022 Feeling Safe Answer Date Recorded Are you in a relationship wi th someone who hurts you emotionally and/or physically? No 11/24/2023 Food Insecurity Answer Date Recorded Patient needs follow up regardin 10/08/2024 Transportation Needs Answer Date Record ed Patient needs follow up regardin 10/08/2024 Housing Stability Answer Date Recorded Social/Environmental Concerns No concerns Utility Needs Answer Date Recorded Patient needs follow up regardin 10/08/2024 Education Answer Date Recorded What is the highest level of school you have completed or the highest degree you have received? Associate degree: occupational, technical, or vocational program 04/25/2020 Comments No Sex and Gender Information Value Date Recorded Sex Assigned at Not on file Legal Sex Female 1:18 PM CDT Gender Identity Not on file Sexual Orientation Not on file Occupation Industry Job Start Date Job End Date Not on file Not on file Not on file Not on file Not on file Not on file Not on file Not on file Last Filed Vital Signs Vital Sign Reading Time Taken Comments Blood Pressure 138/82 01/27/2024 1:41 PM CDT Pulse 53 01/27/2024 1:41 PM CDT Temperature 36.5 C (97.7 F) 11/25/2023 7:03 AM CDT Respiratory Rate 18 12/08/2023 11:47 AM CDT Oxygen Saturation 96% 01/27/2024 1:41 PM CDT Inhaled Oxygen Concentration - - Weight 107 kg (236 lb) 01/27/2024 1:41 PM CDT Height 172.7 cm (5' 8 ) 01/27/2024 1:41 PM CDT Body Mass Index 35.88 01/27/2024 1:41 PM CDT Plan of Treatment Health Maintenance Due Date Last Done Comments DTAP/TDAP/TD VACCINES (1 - Tdap) 11/16/1966 ZOSTER VACCINE (1 of 2) 11/16/1997 OSTEOPOROSIS SCREENING 08/24/2019 08/23/2014 RSV VACCINE (60+ or ) (1 - 1-dose 75+ series) 11/16/2022 COLORECTAL SCREENING 09/24/2023 09/23/2018, 09/23/2018, 09/23/2018, Additional history exists INFLUENZA VACCINE (#1) 2024 3, 08/14/2022, 04/26/2021, Additional history exists PNEUMOCOCCAL VACCINE 50+ YEARS Completed 10/11/2016 , 06/06/2014 Medical Devices Implanted Type Area Specification Consultant Device Identifier Shelf Expiration Date Model / Serial / Lot Clip Endo Resolution 360 235cm [id number] - [id number] Implanted:Qty: 1 on 09/23/2018 by Jose Antonio Diane MD at [facility] [employer] [employer] [id number] / / Stent-10/10/2016 Implanted:Qty: 1 on 10/10/2016 by Carmine Villanueva MD Stent Coronary [facility] DEVICE / / [id number] Description:Drug eluting yessi nt placed in the MID LAD Stent-10/10/2016 Implanted:Qty: 1 on 10/10/2016 by Carmine Villanueva MD Stent Coronary [facility] DEVICE / / [id number] Description:Drug eluting yessi nt placed in the RPL Procedures Procedure Name Priority Date/Time Associated Diagnosis Comments COLONOSCOPY REPORT 09/23/2018 11 :41 AM CDT XR DEXA BONE DENSITY AXIAL 1 OR MORE SITES Routine 08/23/2014 11:21 AM CDT Osteoporosis screening from Last 3 Months or Most Recently Relevant to Health Maintenance Results * COLONOSCOPY REPORT (09/23/2018 11:41 AM CDT) Narrative Procedure Note Jose Antonio Diane MD - 09/23/2018 11:41 AM CDT [facility] Patient Name: Liana Hodges Procedure Date: 09/23/2018 Date of : 1945 Admit Type: Outpatient Age: 72 Attending MD: Jose Antonio Diane MD Procedure: Colonoscopy Indications: High risk colon cancer surveillance: Personal history of colonic polyps, Last colonoscopy: 2013 Providers: Jose Antonio Diane MD Referring MD: Mary Delgado MD Requesting Provider: Medicines: Monitored Anesthesia Care Complications: No immediate complications. Procedure: After I obtained informed consent, the scope was passed under direct vision. Throughout the procedure, the patient's blood pressure, pulse, and oxygen saturations were monitored continuously. The Colonoscope was introduced through the anus and advanced to the terminal ileum, with identification of the appendiceal orifice and IC valve. The colonoscopy was performed without difficulty. The patient tolerated the procedure well. The quality of the bowel preparation was good. Findings: The perianal and digital rectal examinations were normal. Retroflexion in the right colon was performed. A 2 mm polyp was found in the proximal ascending colon. The polyp was sessile. The polyp was removed with a jumbo cold forceps. Resection and retrieval were complete. The proximal transverse colon, hepatic flexure, ascending colon and cecum were mildly tortuous. A 3 mm polyp was found in the transverse colon. The polyp was sessile. The polyp was removed with a hot snare. Resection and retrieval were complete. To prevent bleeding after the polypectomy, one hemostatic clip was successfully placed. There was no bleeding during, or at the end, of the procedure. Multiple small and large-mouthed diverticula were found in the sigmoid colon. Mucous in sigmoid colon irrigated and suctioned. The sigmoid colon was moderately tortuous. Internal hemorrhoids were found during retroflexion. The hemorrhoids were small. Anal papilla(e) were hypertrophied. A 1 to 2 mm polyp was found in the rectum. The polyp was hyperplastic and sessile. The polyp was removed with a jumbo cold forceps. Resection and retrieval were complete. The terminal ileum contained a single small diverticulum. The remainder of the exam in the terminal ileum was normal. Impression: - One 2 mm polyp in the proximal ascending colon, removed with a jumbo cold forceps. Resected and retrieved. - Tortuous colon. - One 3 mm polyp in the transverse colon, removed with a hot snare. Resected and retrieved. Clip was placed. - Diverticulosis in the sigmoid colon. - Mucous in sigmoid colon irrigated and suctioned. - Tortuous colon. - Internal hemorrhoids. - Anal papilla(e) were hypertrophied. - One 1 to 2 mm polyp in the rectum, removed with a jumbo cold forceps. Resected and retrieved. - Ileal diverticulum. Recommendation: - Await pathology results. - Telephone endoscopist for pathology results in 2 weeks. - Repeat colonoscopy in 3 - 5 years for surveillance based on pathology results. Procedure Code(s): --- Professional --- 11395, Colonoscopy, flexible; with removal of tumor(s), polyp(s), or other lesion(s) by snare technique [id number], 59, Colonoscopy, flexible; with biopsy, single or multiple CPT copyright 2016 [employer]. All rights reserved. The codes documented in this report are preliminary and upon leather heel breaster review may be revised to meet current compliance requirements. Jose Antonio Diane MD 09/23/2018 11:40:59 AM This report has been signed electronically. Number of Addenda: 0 Estimated Blood Loss: Estimated blood loss: none. Estimated blood loss: none. us Jose Antonio Diane MD GI PROCEDURE ORDERABLES Final Re sult * XR DEXA BONE DENSITY AXIAL 1 OR MORE SITES (08/23/2014 11:21 AM CDT) Anatomical Region Laterality Modality Other 08/23/2014 11:0 6 AM CDT Impressions 08/24/2014 9:55 AM CDT IMPRESSION: 1. Normal bone mineral density in the lumbar spine and left hip with no increased fracture risk. Normal by WHO criteria. 2. Recommend followup exam in 2 years. TREATMENT: NOF [place] recommendations: 1. Adequate intake of Calcium and Vitamin D 2. Treatment of Vitamin D deficiency 3. Regular weight bearing and muscle strengthening exercises. 4. Fall prevention. 5. Tobacco use cessation and avoidance of excessive alcohol. NOF Pharmacologic Therapy Guidelines: Postmenopausal females and men age 50 and older presenting with the following should be treated: 1. A known hip or vertebral fracture. 2. A T-score </= -2.5 at the femoral neck, total hip or lumbar spine. 3. A T-score between -1.0 and -2.5, and a WHO 10-year probability of a hip fracture >3% or a 10-year probability of a major osteoporosis related fracture >20% based on the WHO algorithm. This is based on FRAX (Fracture Risk Assessment Tool) data. This tool can be found at www.shef.ac.uk/FRAX/tool.aspx Dictated from Location 2: [facility] 08/24/2014 9:55 AM CDT XR DEXA BONE DENSITY AXIAL 1 OR MORE SITES, Aug 23, 2014 11:06:19 AM INDICATION: Postmenopausal female DISCUSSION: Planar images were obtained of the lumbar spine and left hip using a Hologic DEXA scanner for bone mineral density determination. QUALITY OF EXAM: Satisfactory. However, only two lumbar vertebral levels are evaluated due to arthritic change in lumbar spine. REGION: Total Lumbar Spine: 1.180 g/cm2; T-score: 0.7; Z-score: 2.7 Femoral neck left: 0.956 g/cm2; T-score: 1.0; Z-score: 2.6 Total Hip left: 1.053 g/cm2; T-score: 0.9; Z-score: 2.2 COMPARISON: No prior exams are available for comparison. Procedure Note Joey Zamora MD - 08/24/2014 XR DEXA BONE DENSITY AXIAL 1 OR MORE SITES, Aug 23, 2014 11:06:19 AM INDICATION: Postmenopausal female DISCUSSION: Planar images were obtained of the lumbar spine and left hip using a Hologic DEXA scanner for bone mineral density determination. QUALITY OF EXAM: Satisfactory. However, only two lumbar vertebral levels are evaluated due to arthritic change in lumbar spine. REGION: Total Lumbar Spine: 1.180 g/cm2; T-score: 0.7; Z-score: 2.7 Femoral neck left: 0.956 g/cm2; T-score: 1.0; Z-score: 2.6 Total Hip left: 1.053 g/cm2; T-score: 0.9; Z-score: 2.2 COMPARISON: No prior exams are available for comparison. IMPRESSION IMPRESSION: 1. Normal bone mineral density in the lumbar spine and left hip with no increased fracture risk. Normal by WHO criteria. 2. Recommend followup exam in 2 years. TREATMENT: NOF [place] recommendations: 1. Adequate intake of Calcium and Vitamin D 2. Treatment of Vitamin D deficiency 3. Regular weight bearing and muscle strengthening exercises. 4. Fall prevention. 5. Tobacco use cessation and avoidance of excessive alcohol. NOF Pharmacologic Therapy Guidelines: Postmenopausal females and men age 50 and older presenting with the following should be treated: 1. A known hip or vertebral fracture. 2. A T-score </= -2.5 at the femoral neck, total hip or lumbar spine. 3. A T-score between -1.0 and -2.5, and a WHO 10-year probability of a hip fracture >3% or a 10-year probability of a major osteoporosis related fracture >20% based on the WHO algorithm. This is based on FRAX (Fracture Risk Assessment Tool) data. This tool can be found at www.shef.ac.uk/FRAX/tool.aspx Dictated from Location 2: [place], [place] Jackie Tran DO DIAGNOSTIC IMAGING ORDER ANDREW Final Result from Last 3 Months or Most Recently Relevant to Health Maintenance Insurance RX [employer] Medicare Part D RX [facility] Commercial [facility] [place] [id number] MEDICARE ADVANTAGE HMO Advance Directives For more information, please contact: [phone] * Full Code (Latest Code Status on File) Date Activated Date Inactivated Comments 11/24/2023 1:05 PM 11/25/2023 1:01 PM * Full Code Date Activated Date Inactivated Comments 11/24/2023 8:46 AM 11/24/2023 1:05 PM * Full Code Date Activated Date Inactivated Comments 11/05/2022 11:11 PM 11/06/2022 5:06 PM * Full Code Date Activated Date Inactivated Comments 01/20/2020 11:03 PM 01/21/2020 2:47 PM * Full Code Date Activated Date Inactivated Comments 08/12/2019 2:15 AM 08/12/2019 6:46 PM
--- OUTSIDE RECORDS SUMMARY | 2024-10-28 19:59 | XMS_ITS | Encounter Summary ---
Author Organization [facility] Address [address] [place] [address] Care Team Providers Care Learn To Swim Instructor Name Role Phone Susana Figueroa [facility] Primary Care Provider [phone] Encounter Details Date Type Department Care Team (Late st Contact Info) Description 03/08/2024 Abstract [facility] [address] [address] Todd Castillo MA Social History Tobacco Use Types Packs/Day Years Used Date Smoking Tobacco: Never Smokeless Tobacco: Never Alcohol Use Standard Drinks/Week Comments Yes 0 (1 standard drink = 0.6 oz pur e alcohol) Comments No Sex and Gender Information Value Date Recorded Sex Assigned at Not on file Legal Sex Female 7:46 PM CDT Gender Identity Not on file Sexual Orientation Not on file documented as of this encounter Plan of Treatment Not on file documented as of this encounter Procedures Procedure Name Priority Date/Time Associated Diagnosis Comments BASIC METABOLIC PANEL Routine 10/14/2024 BASIC METABOLIC PANEL Routine 09/16/2024 BASIC METABOLIC PANEL Routine 04/06/2024 COMPREHENSIVE METABOLIC PANEL Routine 02/29/2024 CBC, MANUAL DIFF Routine 02/29/2024 documented in this encounter Results * BASIC METABOLIC PANEL (10/14/2024) SODIUM S/P/B 127 135 - 146 POTASSIUM S/P/B 4.7 CO2 27 CHLORIDE S/P/B 95 GLUCOSE 80 mg/dL CALCIUM S/P/B 10.2 BUN 22 CREATININE S/P/B 0.94 0.5 - 1.0 GFR ESTIMATE 63 10/14/2024 us Default History Genericprovider LABORATORY Final Result * BASIC METABOLIC PANEL (09/16/2024) SODIUM S/P/B 137 POTASSIUM S/P/B 5.2 CO2 28 CHLORIDE S/P/B 102 GLUCOSE 90 mg/dL CALCIUM S/P/B 9.9 BUN 12 CREATININE S/P/B 0.80 0.5 - 1.0 GFR ESTIMATE 76 09/16/2024 us Default History Genericprovider LABORATORY Final Result * BASIC METABOLIC PANEL (04/06/2024) SODIUM S/P/B 133 135 - 146 POTASSIUM S/P/B 5.3 CO2 27 CHLORIDE S/P/B 100 GLUCOSE 90 mg/dL CALCIUM S/P/B 10.2 BUN 16 CREATININE S/P/B 0.88 0.5 - 1.0 GFR ESTIMATE 68 04/06/2024 us Default History Genericprovider LABORATORY Final Result * COMPREHENSIVE METABOLIC PANEL (02/29/2024) SODIUM S/P/B 136 GLUCOSE 107 mg/dL AST 22 BUN 13 CREATININE S/P/B 0.80 0.5 - 1.0 CALCIUM S/P/B 9.3 POTASSIUM S/P/B 3.9 CHLORIDE S/P/B 100 ALT 13 GFR ESTIMATE >60 us Default History Genericprovider LABORATORY Final Result * CBC, MANUAL DIFF (02/29/2024) WBC 7.8 HGB 12.6 HCT 38.0 PLT 288 us Default History Genericprovider LABORATORY Final Result documented in this encounter Visit Diagnoses Not on filedocumented in this encounter Care Teams Learn To Swim Instructor Relationship Specialty Start Date End Date Susana Figueroa, CHILD PSYCHOLOGIST- [address] [place] [address] PCP - General NURSE PRACTITIONER 01/06/24 documented as of this encounter
--- OUTSIDE RECORDS SUMMARY | 2024-10-28 20:00 | XMS_ITS | Encounter Summary ---
Author Organization [facility] Address [facility] [place] [address] Care Team Providers Care Automotive Power Electronics Engineer Name Role Phone Susana Figueroa [facility] Primary Care Provider [phone] Encounter Details Date Type Department Care Team (Late st Contact Info) Description 10/27/2024 Orders Only [facility] [address] Ml Ornelas RN Social History Tobacco Use Types Packs/Day Years [...] on filedocumented in this encounter Care Teams Automotive Power Electronics Engineer Relationship Specialty Start Date End Date Susana Figueroa [facility] [address] [id number] PCP - General NURSE PRACTITIONER 01/06/24 documented as of this encounter
--- OUTSIDE RECORDS SUMMARY | 2024-10-28 20:00 | XMS_ITS | Encounter Summary ---
Author Organization [facility] Address [facility] [place] [address] Care Team Providers Care Signal Operator Name Role Phone Marlene Figueroaanda Ajith [facility] Primary Care Provider [phone] Reason for Visit * Reason Onset Date Comments Weakness 10/27/2024 Medication Request 10/27/2024 Losartan incr eased Encounter Details Date Type Department Care Team (Late st Contact Info) Description 10/27/2024 Telephone [facility] [address] [address] Ml Ornelas RN Weakness; Medication Request (Losartan increased) Social History Tobacco Use Types Packs/Day Years [...] on file documented as of this encounter Progress Notes * Nini Tomas CMA - 10/27/2024 1:12 PM CDTAddended by: NINI TOMAS on: 10/27/2024 01:12 PM Modules accepted: Orders * Nini Tomas CMA - 10/27/2024 1:11 PM CDT Losartan increase sent to pharmacy. ki * Ml Ornelas RN - 10/27/2024 11:43 AM CDT Pt called to report c/o weakness, says wakes up in the morning and arms feel heavy, body feels weak, believes is SE of HCTZ, says is taking as prescribed-25 mg daily and says was started about three weeks ago, says BP is good, 130's/60's, pulse 60's, says is drinking plenty of water and staying well hydrated, says feels dehydrated, despite drinking a lot of water. Pt also says has sulfa allergy and is concerned that HCTZ is sulfa drug, says did only take 12.5 mg of HCTZ this morning. Jennifer Ornelas R.N. Pt notified of the below per Daren, pt verbalizes understanding and has no further questions, will mail lab slip to home address, pt goes to [facility]. Lab slip mailed to pt. Jennifer Ornelas R.N. documented in this encounter Plan of Treatment Not on file documented as of this encounter Visit Diagnoses Not on filedocumented in this encounter Care Teams Signal Operator Relationship Specialty Start Date End Date Susana Figueroa, GAS LINE REPAIRER- [address] [place], [place] [id number] PCP - General NURSE PRACTITIONER 01/06/24 documented as of this encounter
--- OUTSIDE RECORDS SUMMARY | 2024-10-28 20:00 | XMS_ITS | Clinical Summary ---
Author Organization [facility] Address [address] [place] [address] Care Team Providers Care Set Decorator Name Role Phone Susana Figueroa [facility] Primary Care Provider [phone] Allergies Active Allergy Reactions Criticality Noted Date Comments Tape Itching 12/05/2023 Amlodipine Swelling 12/05/2023 Codeine Other (see comment) 12/05/2023 Delirium Hydromorphone Vomiting 12/05/2023 Iodinated Contrast Media Palpitations High 3 Iodine Palpitations Low 12/05/2023 Latex Itching 12/05/2023 Morphine Dizziness 12/05/2023 Penicillins Rash Low 12/05/2023 Prednisone Palpitations Low 12/05/2023 Rosuvastatin Myalgias 03/23/2024 Statins Myalgias 12/05/2023 Sulfa Antibiotics Vomiting 12/05/2023 Medications metoprolol tartrate (LOPRESSOR) 50 MG tablet Take 1 tablet (50 mg total) by mouth 2 (two) times daily. 4 Active omeprazole (PRILOSEC) 20 MG capsule Take 1 capsule (20 mg total) by mouth daily. 4 Active ELIQUIS 5 MG tablet Take 1 tablet (5 mg total) by mouth 2 (two) times daily. Active nitroglycerin (NITROSTAT) 0.4 MG SL tablet 4 Active diphenhydrAMINE (BENADRYL) 25 MG tablet Take 2 tablets the night before the procedure at 5pm, take 2 tablets at bedtime and 2 tablets the morning before the procedure 6 tablet 4 Active cimetidine (TAGAMET) 300 MG tablet Take one tablet the night before the procedure at 5pm, take one tablet at bedtime and one tablet the morning of the procedure 3 tablet 4 Active spironolactone (ALDACTONE) 25 MG tablet TAKE 1/2 TABLET(12.5 MG) BY MOUTH DAILY 45 tablet 5 Active vitamin D2, ergocalciferol, (DRISDOL) 1.25 mg capsule take 1 capsule by mouth 1 time a week 5 Active simvastatin (ZOCOR) 40 MG tablet TAKE 1 TABLET(40 MG) BY MOUTH EVERY NIGHT AT BEDTIME 90 tablet 1 5 Active isosorbide mononitrate ER (IMDUR) 60 MG 24 hr tablet Take 1 tablet (60 mg total) by mouth daily. 30 tablet 5 5 Active losartan (COZAAR) 50 MG tablet (NEW DOSE) take 50mg every evenings and 25mg every morning 135 tablet 1 5 Active losartan (COZAAR) 50 MG tablet Take 1 tablet (50 mg total) by mouth every evening. NEW DOSE 09/02/2024 OV 90 tablet 1 5 10/28/19 25 Discontinu ed(Reorder ) hydroCHLOROthia zide (HYDRODIURIL) 25 MG tablet Take 1 tablet (25 mg total) by mouth every morning. 30 tablet 3 5 10/28/19 25 Discontinu ed(Trina suresh Physician) Active Problems Problem Noted Date Diagnosed Date Dizziness 11/05/2022 Palpitations 11/05/2022 Old PA (myocardial infarction) 01/24/2022 Obesity 11/06/2021 Overview (01/06/2024): Query 3.8.23 mh Per PVQ Chest pain 02/28/2021 JOSEP on CPAP 09/14/2020 Paroxysmal atrial fibrillation (CMS/HCC HHS/HCC) 05/01/2020 Coronary artery disease invo lving [place] coronary artery of [place] heart without angina pectoris 04/19/2014 S/P coronary artery stent placement 04/19/2014 HLD (hyperlipidemia) 03/30/2014 HTN (hypertension) 06/02/2013 Resolved Problems Problem Noted Date Diagnosed Date Resolved Date Statin intolerance 02/05/2016 Encounters Date Type Department Care Team Description 10/27/2024 Orders Only [facility], [facility] [address] [place] [address] Ml Ornelas RN 10/27/2024 Orders Only [facility], [facility] [address] [place] [address] Ml Ornelas RN 10/27/2024 Telephone [facility], [facility] [address] [place], [place] [address] Ml Ornelas, RN Weakness; Medication Request (Losartan increased) 10/17/2024 Telephone [facility], [facility] [address] [place], [place] [id number] Ml Ornelas, rubber goods inspector Results 10/10/2024 Orders Only [facility], [facility] [address] [place], [place] [id number] Ml Ornelas RN 10/10/2024 Orders Only [facility], [facility] [address] [place], [place] [id number] Ml Ornelas RN 10/10/2024 Telephone [facility], [facility] [address] [place], [place] [id number] Ml Ornelas, RN Blood Pressure 09/19/2024 Orders Only [facility], [facility] [address] [place], [place] [id number] Ml Ornelas RN 09/19/2024 Telephone [facility], [facility] [address] [place] [id number] Ml Ornelas rubber goods inspector Results 09/02/2024 12:15 PM CDT Office Visit [facility], [address] [address] Sandra Capps MD Coronary Artery Disease; Hypertension (3 mo follow up) 09/02/2024 Orders Only [facility], [address] [address] Sandra Capps MD 09/02/2024 Telephone [facility], [address] [address] Sandra Capps MD Medication (ASPIRIN/) 09/02/2024 Travel from Last 3 Months Family History Medical History Relation Comments Heart Attack Sister Relation Status Comments Father (Age 66) Maternal Grandmother (Age 83) Mother (Age 83) Paternal Grandmother (Age 83) Sister (Age 48) Social History Tobacco Use Types Packs/Day Years Used Date Smoking Tobacco: Never Smokeless Tobacco: Never Tobacco Cessation:Counseling Given: Not Answered Alcohol Use Standard Drinks/Week Comments Yes 0 (1 standard drink = 0.6 oz pur e alcohol) Comments No Sex and Gender Information Value Date Recorded Sex Assigned at Not on file Legal Sex Female 7:46 PM CDT Gender Identity Not on file Sexual Orientation Not on file Last Filed Vital Signs Vital Sign Reading Time Taken Comments Blood Pressure 131/74 09/02/2024 10:48 AM CDT TA JAMIE BY Pulse 64 09/02/2024 10:28 AM CDT Temperature 36.8 C (98.3 F) 12/05/2023 9:34 AM CDT Respiratory Rate 24 12/05/2023 1:00 PM CDT Oxygen Saturation 98% 09/02/2024 10:28 AM CDT Inhaled Oxygen Concentration - - Weight 108.4 kg (239 lb) 09/02/2024 10:28 AM CDT Height 172.7 cm (5' 8 ) 09/02/2024 10:28 AM CDT Body Mass Index 36.34 09/02/2024 10:28 AM CDT Plan of Treatment Health Maintenance Due Date Last Done Comments ASCVD LDL 1945 Hepatitis C 11/16/1965 DTaP, Tdap and Td Vaccines ( 1 - Tdap) 11/16/1966 Zoster Vaccines (1 of 2) 11/16/1997 Annual Medicare Wellness Visit 11/16/2012 RSV Immunization or 60+ Years (1 - 1-dose 75+ series) 11/16/2022 COVID-19 Vaccine (1 - 2023-2 5 season) 2024 Dexa Scan (General) Completed 08/23/2014, 08/23/2014 Pneumococcal Vaccine: 50+ Years Completed 10/11/2016, 06/06/2014 Meningococcal B Vaccine Aged Out No l onger eligible based on patient's age to complete this topic Meningococcal Vaccine Aged Out No ron dolores eligible based on patient's age to complete this topic RSV Immunizations Under 20 Months Aged Out No longer eligible b ased on patient's age to complete this topic Procedures Procedure Name Priority Date/Time Associated Diagnosis Comments BASIC METABOLIC PANEL Routine 10/14/2024 BASIC METABOLIC PANEL Routine 09/16/2024 from Last 3 Months Results * BASIC METABOLIC PANEL (10/14/2024) Only the most recent of2 resultswithin the time period is included. SODIUM S/P/B 127 135 - 146 POTASSIUM S/P/B 4.7 CO2 27 CHLORIDE S/P/B 95 GLUCOSE 80 mg/dL CALCIUM S/P/B 10.2 BUN 22 CREATININE S/P/B 0.94 0.5 - 1.0 GFR ESTIMATE 63 10/14/2024 us Default History Genericprovider LABORATORY Final Result from Last 3 Months Insurance [facility] Care Teams Set Decorator Relationship Specialty Start Date End Date Susana Figueroa, PHYSICAL THERAPY TECHNICIAN- [address] [place] [id number] PCP - General NURSE PRACTITIONER 01/06/24
--- OUTSIDE RECORDS SUMMARY | 2024-10-28 20:00 | XMS_ITS | Encounter Summary ---
Author Organization [facility] Address [facility] [place] [address] Care Team Providers Care Retail Service Lead Merchandiser Name Role Phone Susana Figueroa [facility] Primary Care Provider [phone] Encounter Details Date Type Department Care Team (Late st Contact Info) Description 10/27/2024 Orders Only [facility] [address] Ml Ornelas RN Social History Tobacco Use [...] as of this encounter Plan of Treatment Scheduled Orders Name Type Priority Associated Diagnoses Orde r Schedule BASIC METABOLIC PANEL Lab Routine HTN (hypertension) Expected: 10/27/2024, Expires: 10/27/2025 documented as of this encounter Visit Diagnoses Diagnosis HTN (hypertension)- Primary Unspecified essential hypertension documented in this encounter Care Teams Retail Service Lead Merchandiser Relationship Specialty Start Date End Date Susana Figueroa FNPVAIBHAV [facility] [place] [address] PCP - General NURSE PRACTITIONER 01/06/24 documented as of this encounter
[2024-10-28 20:07] VITALS: BP 204/102; PULSE 79; RESP 16; TEMP 36.7; O2SAT 100
--- NOTE | 2024-10-28 20:10 | ECG_ITS ---
Test Date: 2024-10-28 20:58:28 Measurements Intervals [place] Rate: 63 P: -25 DE: 246 QRS: 16 QRSD: 105 T: 61 QT: 395 QTc: 406 Interpretive Statements SINUS RHYTHM WITH FIRST DEGREE AV BLOCK ABNORMAL ECG Compared to ECG 03/01/2024 01:57:06 Sinus bradycardia no longer present Left ventricular hypertrophy no longer present Electronically Signed On 10-29-2024 08:06:48 CDT by Zak Grossman M.D.
[2024-10-28 21:20] LABS: Basophils Absolute Auto 0.1 K/mm3 (0.0-0.1); Basophils Percent Auto 0.6 % (0.2-1.2); Eosinophils Absolute Auto 0.1 K/mm3 (0-0.3); Eosinophils Percent Auto 1.4 % (0-4.4); Hematocrit 23.6 % (37.0-47.0); Hemoglobin 7.2 g/dL (12.0-15.0); Immature Granulocyte Absolute 0.06 K/mm3 (0.00-0.031); Immature Granulocyte Percent A 0.6 % (0-0.5); Lymphocytes Absolute Auto 1.76 K/mm3 (0.9-3.2); Mean Corpuscular HGB Conc 30.5 g/dl (32-36); Mean Corpuscular Volume 91.8 fl (80-100); Mean Platelet Volume 10.3 fl (7.4-10.4); Monocytes Absolute Auto 1.1 K/mm3 (0.1-0.6); Monocytes Percent Auto 10.4 % (2.6-8.5); Neutrophils Absolute Auto 7.3 K/mm3 (1.3-6.7); Platelet Count Result 378 k/mm3 (150-375); Red Blood Count 2.57 M/mm3 (4.2-5.4); Red Cell Distribution Width 12.2 % (11.5-14.5); White Blood Count 10.4 K/mm3 (4.5-10.0)
[2024-10-28 21:30] LABS: Alanine Aminotransferase 14 U/L (6-35); Albumin Level 4.2 g/dL (3.5-5.1); Alkaline Phosphatase 86 U/L (38-126); Anion Gap 10 mmol/L (4-12); Aspartate Amino Transferase 23 U/L (14-36); Bilirubin,Total 0.4 mg/dL (0.2-1.3); Blood Urea Nitrogen 16 mg/dL (7-17); Calcium 8.7 mg/dL (8.4-10.2); Carbon Dioxide 23 mmol/L (22-30); Chloride 88 mmol/L (98-107); Estimated CRCL calculation 71 ml/min; Estimated Glomerular Filt Rate > 60; Glucose 90 mg/dL (65-110); Potassium 4.4 mmol/L (3.4-5.0); Sodium 121 mmol/L (137-145)
[2024-10-28 22:44] VITALS: BP 158/60; PULSE 64; RESP 18; TEMP 36.6; O2SAT 99
[2024-10-28 22:54] LABS: Add Urine Microscopic? NO; Appearance Urine Clear (Clear); Bilirubin Urine Negative (Negative); Blood Urine Negative (Negative); Color Urine Yellow (Yellow); Glucose Urine UA Negative (Negative); Ketones Urine Negative (Negative); Leukocyte Esterase Ur Negative LEU/UL (Negative); Nitrate Urine Negative (Negative); Protein Urine Negative (Negative); Specific Grav Ur 1.008 (1.001-1.035); Urobilinogen Urine 0.2 mg/dL (<2.0)
[2024-10-29] VITALS (13 sets, daily range): BP systolic 127–200; BP diastolic 51–67; PULSE 61–100; RESP 15–22; TEMP 36.3–36.7; O2SAT 98–100; BMI 36.8
--- NOTE | 2024-10-29 03:05 | ED_ITS ---
HPI - Dizziness General Chief Complaint: Dizziness Stated Complaint: Hypertension, N/Dizzy, weakness Time Seen by Provider: 10/29/24 02:23 History of Present Illness HPI Narrative: 78-year-old female with a past medical history including coronary disease with multiple stents, atrial fibrillation on Eliquis and hypertension. She is presenting to the emergency room with complaints of dizziness and low sodium. She states that her sodium has been low before when she starts diuretic therapy and she was recently initiated hydrochlorothiazide and spironolactone to control her blood pressure. She thinks that her sodium is low today as her symptoms are reminiscent of the last time she had abnormal electrolytes. Patient sources some nausea without vomiting and some dizziness but denies any chest pain shortness a breath. No back pain, fever, chills, trauma. She was otherwise in her normal state of health. 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 Related Data Home Medications ?Medication ?Instructions ?Recorded ?Confirmed ?Last Taken ?Type Tums 500 1,000 mg PO DAILY 02/01/24 10/29/24 10/28/24 History apixaban 5 mg tablet (Eliquis) 5 mg PO BID 02/01/24 10/29/24 10/28/24 19:00 History fluticasone propionate 50 2 mcg intranasal DAILY PRN 02/01/24 10/29/24 02/21/24 History mcg/actuation nasal Congestion spray,suspension isosorbide mononitrate 30 mg 60 mg PO DAILY 02/01/24 10/29/24 10/28/24 07:14 History tablet,extended release 24 hr loratadine 10 mg tablet 10 mg PO DAILY PRN Allergy Symptoms 02/01/24 10/29/24 02/21/24 History metoprolol tartrate 50 mg tablet 50 mg PO BID 02/01/24 10/29/24 10/28/24 19:00 History nitroglycerin 0.4 mg sublingual 0.4 mg sublingual PRN PRN Angina 02/01/24 10/29/24 Unknown History tablet omeprazole 20 mg capsule,delayed 20 mg PO DAILY 02/01/24 10/29/24 10/28/24 History release losartan 50 mg tablet 50 mg PO DAILY 10/12/24 10/29/24 10/28/24 History simvastatin 20 mg tablet 40 mg PO QPM 10/12/24 10/29/24 10/28/24 19:00 History spironolactone 25 mg tablet 12.5 mg PO DAILY 10/12/24 10/29/24 10/28/24 09:00 History losartan 25 mg tablet 25 mg PO DAILY 10/29/24 10/29/24 10/28/24 07:12 History Allergies Allergy/AdvReac Type Severity Reaction Status Date / Time adhesive tape Allergy Severe Swelling Verified 10/29/24 06:19 amlodipine Allergy Severe Swelling Verified 10/29/24 06:19 LOWER EXT. Iodinated Contrast Media Allergy Severe HEART Verified 10/29/24 06:19 ARRYTHMIA morphine Allergy Severe Dizziness Verified 10/29/24 06:19 codeine Allergy Intermediate Hallucinati Verified 10/29/24 06:19 ng latex Allergy Intermediate Itching Verified 10/29/24 06:19 Penicillins Allergy Intermediate Hives Verified 10/29/24 06:19 prednisone Allergy Intermediate HEART Verified 10/29/24 06:19 PALPITATIONS hydromorphone AdvReac Intermediate Nausea and Verified 10/29/24 06:19 Vomiting Sulfa (Sulfonamide AdvReac Intermediate Nausea and Verified 10/29/24 06:19 Antibiotics) Vomiting Review of Systems 2 Review of Systems: As reviewed above in [facility] Past Medical History Medical History Atrial fibrillation Colon polyp GERD (gastroesophageal reflux disease) Surgical History Surgical History History of cardiac cath 5 stents in heart Family History Family History Mother TIA (transient ischemic attack) Arterial atherosclerosis Father Malignant neoplasm of prostate Social History Social History Smoking status: Never smoker Alcohol intake: never Substance use: never Substance use type: does not use Do You Feel Safe in your Home?: Yes Lack of Transportation: No Lack of Food: Never True Current Housing: I Have Housing Concerned About Future Housing: No Difficulty Paying Gas/Electric Bills: No Difficulty Paying for Meds: No Currently Unemployed: YES Education: Associate Degree Difficulty w/ Childcare or Family Care: No Living arrangements: with family Spiritual care concerns: No Exam 2 Narrative: GENERAL: [Well-appearing, well-nourished, and in no acute distress.] HEAD: [Normocephalic, atraumatic.] EYES: [PERRLA and EOMI.] ENT: Nares clear, no rhinorrhea or epistaxis. Mucous membranes moist. NECK: Supple. CHEST: [Clear to auscultation. No respiratory distress.] HEART: [Regular rate and rhythm]. No murmur heard. [Normal peripheral pulses.] ABDOMEN: [Soft, nondistended], [nontender], [No rigidity or guarding] EXTREMITIES: Normal range of motion. [No edema.] SKIN: Warm, dry, no rash. NEURO: [No focal deficits]. Alert and oriented [x3.] PSYCH: [Normal mood and affect.] Course Vital Signs Vital signs: Vital Signs Temperature 36.7 C 10/28/24 20:07 Pulse Rate 79 10/28/24 20:07 Respiratory Rate 16 10/28/24 20:07 Blood Pressure 204/102 H 10/28/24 20:07 Pulse Oximetry 100 10/28/24 20:07 Oxygen Delivery Room Air 10/28/24 20:07 Temperature 36.4 C 10/29/24 05:45 Pulse Rate 87 10/29/24 05:45 Respiratory Rate 18 10/29/24 05:45 Blood Pressure 166/52 H 10/29/24 05:45 Pulse Oximetry 100 10/29/24 05:45 Oxygen Delivery Room Air 10/28/24 20:07 MDM - Dizziness MDM Narrative Medical decision making narrative: 78-year-old female with a past medical history including coronary disease with stents, hypertension, atrial fibrillation on Eliquis and recently started on hydrochlorothiazide and spironolactone for blood pressure control. Patient presents to the emergency department she is feeling like she is having side effects from these medications and causing her electrolytes to drop. She has a history of hyponatremia in the past from initiation of hydrochlorothiazide. 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 Denies any chest pain shortness a breath but does states states she has some nauseousness without vomiting. Concern is presently are for electrolyte derangements, hyponatremia, hyper or hypokalemia, urinary tract infection, less likely injure cranial pathology such as stroke or central pathology to her dizziness. Laboratory studies were ordered including CBC, CMP, urinalysis, CT head, chest x-ray and EKG. Patient's workup reveals no leukocytosis, hemoglobin 7.2 with no recent baseline to compare to. Patient's electrolytes show a sodium 121 and a chloride of 88, normal kidney function, normal LFTs. Urinalysis is negative. Chest x-ray shows no findings. EKG shows normal sinus rhythm with first-degree AV block, no ectopy. Urinary studies were ordered as well as osmolality to assess for any other causes to her hyponatremia but likely from her diuretic use and volume loss as she states that she has lost 8 lb of water weight in the last week and feels dehydrated. She was started on normal saline fluid after discussing with the hospitalist who accepted the patient to a telemetry monitored bed for admission and continues correction of her sodium on a slow basis. Patient made aware of the plan and safely admitted at this time. Medical Records Attestation: I reviewed the patient's medical records. Lab Data Attestation: I reviewed the patient's lab results. 10/28/24 21:05 10/29/24 04:50 Labs: Lab Results 10/28/24 10/28/24 10/28/24 Range/Units 21:05 22:49 22:49 WBC 10.4 H (4.5-10.0) K/mm3 RBC 2.57 L (4.2-5.4) M/mm3 Hgb 7.2 L D (12.0-15.0) g/dL Hct 23.6 L (37.0-47.0) % MCV 91.8 (80-100) fl MCH 28.0 (26-34) pg MCHC 30.5 L (32-36) g/dl RDW 12.2 (11.5-14.5) % Plt Count 378 H (150-375) k/mm3 MPV 10.3 (7.4-10.4) fl Immature Gran % (Auto) 0.6 H (0-0.5) % Neut % (Auto) 70.0 (45.5-73.1) % Lymph % (Auto) 17.0 L (18.3-44.2) % Edwards % (Auto) 10.4 H (2.6-8.5) % Eos % (Auto) 1.4 (0-4.4) % Baso % (Auto) 0.6 (0.2-1.2) % Lymph # (Auto) 1.76 (0.9-3.2) K/mm3 Edwards # (Auto) 1.1 H (0.1-0.6) K/mm3 Eos # (Auto) 0.1 (0-0.3) K/mm3 Baso # (Auto) 0.1 (0.0-0.1) K/mm3 Abs Immat Gran (auto) 0.06 H (0.00-0.031) K/mm3 Absolute Neuts (auto) 7.3 H (1.3-6.7) K/mm3 Absolute Nucleated RBC 0.000 (0.0-0.012) K/mm3 Nucleated RBC % 0.0 (0.0-0.2) % Sodium 121 L (137-145) mmol/L Potassium 4.4 (3.4-5.0) mmol/L Chloride 88 L (98-107) mmol/L Carbon Dioxide 23 (22-30) mmol/L Anion Gap 10 (4-12) mmol/L BUN 16 (7-17) mg/dL Creatinine 0.77 (0.7-1.0) mg/dL Estim Creat Clear Calc 71 ml/min Estimated GFR > 60 (59 - ) Glucose 90 (65-110) mg/dL Calcium 8.7 (8.4-10.2) mg/dL Total Bilirubin 0.4 (0.2-1.3) mg/dL AST 23 (14-36) U/L ALT 14 (6-35) U/L Alkaline Phosphatase 86 (38-126) U/L Total Protein 7.0 (6.3-8.2) g/dL Albumin 4.2 (3.5-5.1) g/dL Urine Color Yellow (Yellow) Urine Appearance Clear (Clear) Urine pH 7.0 (5.0-9.0) Ur Specific Tyler 1.008 (1.001-1.035) Urine Protein Negative (Negative) mg/dL Urine Glucose (UA) Negative (Negative) mg/dL Urine Ketones Negative (Negative) mg/dL Ur Blood (Man) Negative (Negative) Urine Nitrate Negative (Negative) Urine Bilirubin Negative (Negative) Urine Urobilinogen 0.2 (<2.0) mg/dL Leukocyte Esterase Rfl Negative (Negative) ALIDA/UL Urine Osmolality Pending Ur Random Creatinine Pending U Random Total Protein 7 mg/dL Ur Random Sodium 18 meq/L Ur Random Potassium 45.3 meq/L Ur Random Chloride Pending U Random Chloride/Creat Pending Urine Creatinine 52.9 53.5 mg/dL Protein/Creat Ratio 2 0.13 (0-0.20) mg/mg Imaging Data Attestation: I personally reviewed and interpreted this imaging study as follows: My impression: No acute intracranial pathology. ECG Data EKG #1: Attestation: I personally reviewed and interpreted this ECG as follows: ECG completion date: 10/29/24 ECG completion time: 20:58 Prior ECG tracings: not available for review Interpretation: First-degree AV block with a OR interval 246, QTC 406, rate of 63 beats per minute. Sinus rhythm without any ST segment elevations, depressions or inversions. No ectopy. No previous EKG for comparison. Critical Care Time Critical Care Time Critical Care Time: Yes Total Critical Care Time: 35 Discharge Plan Discharge Clinical Impression: Acute hyponatremia, Mild nausea and vomiting, History of CAD (coronary artery disease), Hypertension Patient Disposition: Still a Patient Condition: Stable
--- OUTSIDE RECORDS SUMMARY | 2024-10-29 03:15 | XMS_ITS | Clinical Summary ---
Author Organization [facility] Address [address] [place] [address] Care Team Providers Care Customer Service Assistant Name Role Phone Susana Figueroa [facility] Primary Care Provider [phone] Allergies Active Allergy Reactions Criticality Noted Date [...] Diagnosed Date Dizziness 11/05/2022 Palpitations 11/05/2022 Old [place] (myocardial infarction) 01/24/2022 Obesity 11/06/2021 Overview (01/06/2024): Query 3.8.23 mh Per PVQ Chest pain 02/28/2021 JOSEP on CPAP 09/14/2020 Paroxysmal atrial fibrillation (CMS/HCC HHS/HCC) 05/01/2020 Coronary artery disease invo lving [place] coronary artery of [place] heart without angina pectoris 04/19/2014 S/P coronary artery stent placement 04/19/2014 HLD (hyperlipidemia) 03/30/2014 HTN (hypertension) 06/02/2013 Resolved Problems Problem Noted Date Diagnosed Date Resolved Date Statin intolerance 02/05/2016 Encounters Date Type Department Care Team Description 10/27/2024 Orders Only [facility], [facility] [address] [place] [address] Ml Ornelas RN 10/27/2024 Orders Only [facility], [facility] [address] [place] [address] Ml Ornelas RN 10/27/2024 Telephone [facility], [facility] [address] [place], [place] [address] lM Ornelas, RN Weakness; Medication Request (Losartan increased) 10/17/2024 Telephone [facility], [facility] [address] [place], [place] [id number] Ml Ornelas, topology professor Results 10/10/2024 Orders Only [facility], [facility] [address] [place], [place] [id number] Ml Ornelas RN 10/10/2024 Orders Only [facility], [facility] [address] [place], [place] [id number] Ml Ornelas RN 10/10/2024 Telephone [facility], [facility] [address] [place], [place] [address] Ml Ornelas, RN Blood Pressure 09/19/2024 Orders Only [facility], [facility] [address] [place], [place] [address] Ml Ornelas RN 09/19/2024 Telephone [facility], [facility] [address] [place] [address] Ml Ornelas topology professor Results 09/02/2024 12:15 PM CDT Office Visit [facility], [address] [address] Sandra Capps MD Coronary Artery Disease; Hypertension (3 mo follow up) 09/02/2024 Orders Only [facility], [address] [address] Sandra Capps MD 09/02/2024 Telephone [facility], [address] [address] Sandra Capps MD Medication (ASPIRIN/) 09/02/2024 Travel [...] Final Result from Last 3 Months Insurance [facility] Care Teams Customer Service Assistant Relationship Specialty Start Date End Date Susana Figueroa, DERRICK BOAT LEVER OPERATOR- [address] [place] [id number] PCP - General NURSE PRACTITIONER 01/06/24
--- OUTSIDE RECORDS SUMMARY | 2024-10-29 03:15 | XMS_ITS | Encounter Summary ---
Author Organization [facility] Address [address] [place] [address] Care Team Providers Care Air Purifier Servicer Name Role Phone Mary Delgado MD Primary Care Provider [phone] Reason for Visit * Reason Comments Medication Refill Encounter Details Date Type Department Care Team ([facility] st Contact Info) Description 09/27/2015 Refill [facility] Family Medicine [place] [address] [place] [address] [address] [place] [phone] Mary Delgado MD [address] [place] [phone] Social History Tobacco Use Types Packs/Day Years [...] R/O COVID-19 05/08/2020 05/09/2020 05/10/2020 3:15 PM 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
--- OUTSIDE RECORDS SUMMARY | 2024-10-29 03:15 | XMS_ITS | Clinical Summary ---
Author Organization [facility] Address [address] [place] [address] Care Team Providers Care Data Migration Consultant Name Role Phone Unavailable Primary Care Provider Unavailabl e Allergies Active Allergy Reactions Criticality Noted Date Comments Adhesive Other (See Comments) 11/25/2016 Redness/itching/bu rning Amlodipine Swelling Low 01/25/2020 Codeine Delirium Medium 05/31/2013 Hydromorphone (Bulk) Nausea and Vomiting Low 2013 Iodinated Contrast Media Arrhythmia High 05/31/2013 Latex Itching Low 03/30/2014 Morphine Dizziness,Headache Low 07/10/2016 Penicillins Rash Low 05/31/2013 Prednisone Palpitations Low 03/23/2016 Cjvigae-Kyu-Iif Reductase Inhibitors Muscle Pain Low 11/26/2016 Sulfa [...] 023 Active fluticasone propionate (FLONASE) 50 mcg/spray [place], Suspension nasal inhaler ADMINISTER TWO SPRAYS IN [...] migh t be different from the original. Utility Service Worker-Dr. 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 ([place]) Problem Noted Date Diagnosed Date Palpitations 11/05/2022 Dizziness 11/05/2022 Use of cane as ambulatory aid 10/01/2022 Abnormal finding of kidney 10/01/2022 Old [place] (myocardial infarction) 01/24/2022 Obesity 11/06/2021 Overview (08/27/2022): Query 3.8.23 mh Per PVQ JOSEP on CPAP 09/14/2020 Paroxysmal atrial fibrillation 05/01/2020 GERD (gastroesophageal reflux disease) 7 Statin intolerance 02/05/2016 Coronary artery disease invo lving [place] coronary artery of [place] heart without angina pectoris 04/19/2014 S/P coronary [...] How often do you attend chur or christian services? More than 4 times per year 04/25/2020 Do you belong to any clubs o r organizations such as yazidi groups, unions, fraternal or athletic groups, or [...] , 06/06/2014 Medical Devices Implanted Type Area Computer Programming Supervisor Device Identifier Shelf Expiration Date Model / Serial / Lot Clip Endo Resolution 360 235cm [id number] - [id number] Implanted:Qty: 1 on 09/23/2018 by Jose Antonio Diane MD at [facility] [employer] [id number] / / Stent-10/10/2016 Implanted:Qty: 1 on 10/10/2016 by Carmine Villanueva MD Stent Coronary [facility] DEVICE / / [id number] Description:Drug eluting yessi nt placed in the MID LAD Stent-10/10/2016 Implanted:Qty: 1 on 10/10/2016 by Carmine Villanueva MD Stent Coronary [facility] DEVICE / / [id number] Description:Drug eluting yessi nt placed in the [...] Diane MD - 09/23/2018 11:41 AM CDT [facility] Patient Name: Liana Hodges Procedure Date: 09/23/2018 [...] pathology results. Procedure Code(s): --- Professional --- 88463, Colonoscopy, flexible; with removal of tumor(s), polyp(s), or other lesion(s) by snare technique 46733, 59, Colonoscopy, flexible; with biopsy, single or multiple CPT copyright 2016 [employer]. All rights reserved. The codes documented in this report are preliminary and upon doctor's assistant review may be revised to meet current compliance requirements. JoseA ntonio Diane MD 09/23/2018 11:40:59 AM This report [...] followup exam in 2 years. TREATMENT: NOF Leivasy recommendations: 1. Adequate intake of Calcium and [...] found at www.shef.ac.uk/FRAX/tool.aspx Dictated from Location 2: [facility] 08/24/2014 9:55 AM CDT XR DEXA BONE [...] followup exam in 2 years. TREATMENT: NOF Leivasy recommendations: 1. Adequate intake of Calcium and [...] found at www.shef.ac.uk/FRAX/tool.aspx Dictated from Location 2: [place], [place] Jackie Tran DO DIAGNOSTIC IMAGING ORDER ANDREW Final Result from Last 3 Months or Most Recently Relevant to Health Maintenance Insurance RX [email or web address] Medicare Part D RX [facility] Commercial [facility] [employer] [place] [id number] MEDICARE ADVANTAGE HMO Advance Directives For more information, please contact: [phone] * Full Code (Latest Code Status on [...]
--- OUTSIDE RECORDS SUMMARY | 2024-10-29 03:15 | XMS_ITS | Clinical Summary ---
Author Organization [facility] Address [address] [place] [address] Care Team Providers Care Automotive Glass Installer Name Role Phone Mary Delgado MD Primary Care Provider [phone] Source Comments [facility],non-owned Affiliates and Associated Physician Practices is amultiple site organization consisting of ambulatory clinics and hospital sitesin [place], [place], [place] and [place]. This disclosure is being madepursuant to the Care Everywhere program and may not contain all information available regarding this patient. 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 Gender Identity Not on file Sexual Orientation [...] I Subscriber ID:Not on file (Home) Address: [address] [place] [id number] Payer ID:Not on file Group ID:Not on file Type:Self Pay Address: [facility] MANAGED MEDICARE ADV Advance Directives * Full Code (Latest Code Status on File) Date Activated Date Inactivated Comments 02/28/2021 10:39 PM 03/01/2021 8:14 PM * Full Code Date Activated Date Inactivated Comments 02/28/2021 10:16 PM 02/28/2021 10:39 PM Care Teams Automotive Glass Installer Relationship Specialty Start Date End Date Mary Delgado MD [address] [place] [phone] PCP - General Family Medicine 02/28/21
--- OUTSIDE RECORDS SUMMARY | 2024-10-29 03:15 | XMS_ITS | Encounter Summary ---
Author Organization [facility] Address [address] [place] [address] Care Team Providers Care Field Scout Name Role Phone Susana Figueroa [facility] Primary Care Provider [phone] Encounter Details Date Type Department Care Team (Late st Contact Info) Description 03/08/2024 Abstract [facility] [address] [address] Todd Castillo MA Social History Tobacco Use [...] on filedocumented in this encounter Care Teams Field Scout Relationship Specialty Start Date End Date Susana Figueroa, CHILD CARE COORDINATOR- [address] [place] [address] PCP - General NURSE PRACTITIONER 01/06/24 documented as of this encounter
[2024-10-29 04:04] LABS: Creatinine Urine 52.9 mg/dL; Total Protein Urine Random 7 mg/dL; Ur Ttl Prot Creatinine Ratio 0.13 mg/mg (0-0.20)
[2024-10-29 04:07] LABS: Creatinine Urine 53.5 mg/dL
[2024-10-29 04:08] LABS: Potassium Urine Random 45.3 meq/L; Sodium Urine Random 18 meq/L
[2024-10-29] MEDS: hydrALAZINE HCL 20 MG/ML VIAL 10 MG IV PUSH (04:45)
[2024-10-29] MEDS: SODIUM CHLORIDE 0.9% IV 1,000 ML 100 ML IV CONT ×2 (04:46→09:15)
--- NOTE | 2024-10-29 05:01 | PC.NURSE ---
Attempted to call report. Was told all of the Nurses were in rooms. Per fuel efficient aircraft designer, this RN reported back to call if there were any questions.
[2024-10-29 05:03] LABS: Sodium 124 mmol/L (137-145)
[2024-10-29 05:06] LABS: Iron 32 ug/dL (37-170)
[2024-10-29 05:15] LABS: Percent Iron Saturation 8 % (20-50)
--- NOTE | 2024-10-29 05:28 | PC.NURSE ---
Report taken from CYNTHIA Song prior to patient being transferred to [facility].
--- NOTE | 2024-10-29 05:42 | ADMGEN ---
This patient, Liana Hodges, was admitted to Medical Room 347-. Patient/family oriented to hospital policies and general routines including ID bracelet, bed and alarms, visiting hours, pain management, procedures, bathroom and other care routines, personal items, smoking policy, room service/diet, and visiting hours. Information on how to activate the Rapid Response Team has been discussed. Patient/Family are encouraged to report perceived risks to care and to ask questions if they do not understand what they are told or what they should do.
[2024-10-29 06:04] LABS: Ferritin 6.53 ng/mL (11.1-264)
[2024-10-29] MEDS: busPIRone HCL 5 MG TABLET PO (09:10)
--- NOTE | 2024-10-29 10:42 | PM.IMHP ---
H&P: HPI History of Present Illness Date/Time: 10/29/24 10:42 Chief Complaint: Gen weakness, worsening Narrative: 78 yo female with PMH of CAD s/p stents, HTN, Afib, Anxiety and hemorrhoids who presented to the ER on account of worsening gen weakness. Patient noted she has been having Hyponatremia and hyperkalemia, when she was started on HCTZ and eventually discontinued due to Hyponatremia. Noted she has had bloody stool and had EGD and COlonoscopy about 2 months ago and noted she was told it was normal. otherwise denies any chest pain, SOB, diarrhea, abd pain, vomiting, focal weakness. Noted she was sent to the ER by her PCP for hypontremia. 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 Patient was started on IVF and admitted for further eval and care. Review of Systems Review of Systems: ALL other systems were reviewed and negative except as noted in the HPI above [facility] Past Medical History Medical History Atrial fibrillation Colon polyp GERD (gastroesophageal reflux disease) Surgical History Surgical History History of cardiac cath 5 stents in heart Family History Family History Mother TIA (transient ischemic attack) Arterial atherosclerosis Father Malignant neoplasm of prostate Social History Social History Smoking status: Never smoker Alcohol intake: never Substance use: never Substance use type: does not use Do You Feel Safe in your Home?: Yes Lack of Transportation: No Lack of Food: Never True Current Housing: I Have Housing Concerned About Future Housing: No Difficulty Paying Gas/Electric Bills: No Difficulty Paying for Meds: No Currently Unemployed: YES Education: Associate Degree Difficulty w/ Childcare or Family Care: No Living arrangements: with family Spiritual care concerns: No Meds Home Medications and Allergies Home Medications ?Medication ?Instructions ?Recorded ?Confirmed ?Type Tums 500 1,000 mg PO DAILY 02/01/24 10/29/24 History apixaban 5 mg tablet (Eliquis) 5 mg PO BID 02/01/24 10/29/24 History fluticasone propionate 50 2 mcg intranasal DAILY PRN 02/01/24 10/29/24 History mcg/actuation nasal Congestion spray,suspension isosorbide mononitrate 30 mg 60 mg PO DAILY 02/01/24 10/29/24 History tablet,extended release 24 hr loratadine 10 mg tablet 10 mg PO DAILY PRN Allergy Symptoms 02/01/24 10/29/24 History metoprolol tartrate 50 mg tablet 50 mg PO BID 02/01/24 10/29/24 History nitroglycerin 0.4 mg sublingual 0.4 mg sublingual PRN PRN Angina 02/01/24 10/29/24 History tablet omeprazole 20 mg capsule,delayed 20 mg PO DAILY 02/01/24 10/29/24 History release losartan 50 mg tablet 50 mg PO DAILY 10/12/24 10/29/24 History simvastatin 20 mg tablet 40 mg PO QPM 10/12/24 10/29/24 History spironolactone 25 mg tablet 12.5 mg PO DAILY 10/12/24 10/29/24 History losartan 25 mg tablet 25 mg PO DAILY 10/29/24 10/29/24 History Allergies Allergy/AdvReac Type Severity Reaction Status Date / Time adhesive tape Allergy Severe Swelling Verified 10/29/24 06:19 amlodipine Allergy Severe Swelling Verified 10/29/24 06:19 LOWER EXT. Iodinated Contrast Media Allergy Severe HEART Verified 10/29/24 06:19 ARRYTHMIA morphine Allergy Severe Dizziness Verified 10/29/24 06:19 codeine Allergy Intermediate Hallucinati Verified 10/29/24 06:19 ng latex Allergy Intermediate Itching Verified 10/29/24 06:19 Penicillins Allergy Intermediate Hives Verified 10/29/24 06:19 prednisone Allergy Intermediate HEART Verified 10/29/24 06:19 PALPITATIONS hydromorphone AdvReac Intermediate Nausea and Verified 10/29/24 06:19 Vomiting Sulfa (Sulfonamide AdvReac Intermediate Nausea and Verified 10/29/24 06:19 Antibiotics) Vomiting Vital Signs Vital Signs - 24 hr 10/28/24 20:07 10/28/24 22:44 10/29/24 02:34 Temperature 98.0 F 97.9 F Pulse Rate 79 64 73 Respiratory Rate 16 18 15 Blood Pressure 204/102 H 158/60 H 200/67 H Pulse Oximetry 100 99 99 Oxygen Delivery Room Air 10/29/24 03:36 10/29/24 03:38 10/29/24 05:45 Temperature 97.6 F Pulse Rate 62 65 87 Respiratory Rate 17 18 Blood Pressure 174/59 H 166/52 H Pulse Oximetry 98 100 Oxygen Delivery 10/29/24 09:21 Temperature 97.6 F Pulse Rate 100 Respiratory Rate 22 H Blood Pressure 166/60 H Pulse Oximetry 100 Oxygen Delivery Exam Narrative: General: alert and comfortable Eyes: EOMI, PERRLA ENNT External ears normal, Neck is supple, no masses, Respiratory systems: Clear to auscultation Cardiovascular S1, S2, normal rhythm, no murmur, rub, or gallop; no thrill or palpable murmurs on palpation. Gastrointestinal: soft, non-tender, and non-distended abdomen with no masses; BS present Skin: no rash, lesions, ulcerations, subcutaneous nodules or induration Musculoskeletal: no abnormality and no tenderness, normal ROM Neurologic: Alert and oriented x3, non focal Mental Status Exam: normal affect H&P: Results Labs Labs: Short CBC 10/28/24 Range/Units 21:05 WBC 10.4 H (4.5-10.0) K/mm3 Hgb 7.2 L D (12.0-15.0) g/dL Hct 23.6 L (37.0-47.0) % Plt Count 378 H (150-375) k/mm3 BMP 10/28/24 10/29/24 21:05 04:50 Sodium 121 L 124 L Potassium 4.4 Chloride 88 L Carbon Dioxide 23 BUN 16 Creatinine 0.77 Glucose 90 Calcium 8.7 Liver Function 10/28/24 Range/Units 21:05 Total Bilirubin 0.4 (0.2-1.3) mg/dL AST 23 (14-36) U/L ALT 14 (6-35) U/L Alkaline Phosphatase 86 (38-126) U/L Albumin 4.2 (3.5-5.1) g/dL Urine 10/28/24 Range/Units 22:49 Urine Color Yellow (Yellow) Urine Appearance Clear (Clear) Urine pH 7.0 (5.0-9.0) Ur Specific [place] 1.008 (1.001-1.035) Urine Protein Negative (Negative) mg/dL Urine Glucose (UA) Negative (Negative) mg/dL Assessment and Plan Assessment and plan (1) Acute hyponatremia: Code(s): E87.1 - Hypo-osmolality and hyponatremia Status: Acute Plan Hyponatremia Likely from HCTZ she was taken outpatient Na 121 on admission, Na 124 contineu IVF HOld HCTZ Anemia Hb 7.2, ferritin 6.53 Started on Venofer 500/1000 monitor h and H GI consulted to rule out GI bleed as patient is on ELiquis and aspirin per records last EGD and Colonoscopy on February 2024 CAD s/p stents Continue home meds Afib On Eliquis FOBT pending HTN BP elevated COntinue home meds Anxiety start Buspirone DVT prophylaxis on Eliquis Full code SDM: Son Gael Hodges
[2024-10-29] MEDS: [UNRECOGNIZED DRUG - REMARK] 1 EACH XX (11:12)
[2024-10-29] MEDS: APIXABAN 5 MG TABLET PO ×2 (11:13→21:22)
[2024-10-29] MEDS: LOSARTAN POTASSIUM 25 MG TABLET PO (11:13)
[2024-10-29] MEDS: ISOSORBIDE MONONITRATE 60 MG TAB.ER.24H PO (11:13)
[2024-10-29] MEDS: METOPROLOL TARTRATE 50 MG TAB PO ×2 (11:13→21:22)
[2024-10-29] MEDS: IRON SUCROSE COMPLEX 400 MG, IRON SUCROSE COMPLEX 100 MG in SODIUM CHLORIDE 0.9% IV 250 ML 78.57 MG IVPB (11:22)
[2024-10-29] MEDS: ACETAMINOPHEN 325 MG TABLET 650 MG PO ×2 (11:22→18:23)
--- NOTE | 2024-10-29 13:56 | WPDGICN ---
Assessment and Plan Assessment and plan (1) Iron deficiency anemia: Code(s): D50.9 - Iron deficiency anemia, unspecified Status: Acute Assessment and Plan: The most likely etiology of this patient's iron deficiency anemia is erosive or ulcerative lesions within the upper GI tract (stomach or duodenum) or further distally in the small bowel, likely attributable to aspirin use, even at low doses, and potentially exacerbated by concurrent anticoagulation with Eliquis. No need to repeat colonoscopy, however we will proceed with an EGD on Thursday. If no source of bleeding is identified, we will pursue video capsule endoscopy. In the interim, the patient is receiving iron infusions. GI Consult Note Consult date/time: 10/29/24 13:56 Reason for consult: Iron deficiency anemia HPI: Liana Hodges is a 78-year-old female with a PMH of CAD s/p stents, HTN, and Afib, who presented to the ER for worsening generalized weakness. On 02/22/2024, a colonoscopy revealed diverticulosis without polyps or neoplasm. An EGD on the same date showed and successfully dilated a Schatzki ring; no mucosal erosions were noted in the esophagus, stomach, or duodenum. The patient is on baby aspirin and was recently started on Eliquis for Afib. She denies melena, hematochezia, or hematemesis. On this admission, her hemoglobin was 7.2 g/dL, a significant decrease from a previous value of 12.6 g/dL in February 2024. Her current iron saturation is 3%. Review of Systems Review of Systems: All systems reviewed & are unremarkable except as noted in HPI and below PMFSH Past Medical History Medical History Atrial fibrillation Colon polyp GERD (gastroesophageal reflux disease) Surgical History Surgical History History of cardiac cath 5 stents in heart Family History Family History Mother TIA (transient ischemic attack) Arterial atherosclerosis Father Malignant neoplasm of prostate Social History Social History Smoking status: Never smoker Alcohol intake: never Substance use: never Substance use type: does not use Do You Feel Safe in your Home?: Yes Lack of Transportation: No Lack of Food: Never True Current Housing: I Have Housing Concerned About Future Housing: No Difficulty Paying Gas/Electric Bills: No Difficulty Paying for Meds: No Currently Unemployed: YES Education: Associate Degree Difficulty w/ Childcare or Family Care: No Living arrangements: with family Spiritual care concerns: No Meds Home Medications and Allergies Home Medications ?Medication ?Instructions ?Recorded ?Confirmed ?Type Tums 500 1,000 mg PO DAILY 02/01/24 10/29/24 History apixaban 5 mg tablet (Eliquis) 5 mg PO BID 02/01/24 10/29/24 History fluticasone propionate 50 2 mcg intranasal DAILY PRN 02/01/24 10/29/24 History mcg/actuation nasal Congestion spray,suspension isosorbide mononitrate 30 mg 60 mg PO DAILY 02/01/24 10/29/24 History tablet,extended release 24 hr loratadine 10 mg tablet 10 mg PO DAILY PRN Allergy Symptoms 02/01/24 10/29/24 History metoprolol tartrate 50 mg tablet 50 mg PO BID 02/01/24 10/29/24 History nitroglycerin 0.4 mg sublingual 0.4 mg sublingual PRN PRN Angina 02/01/24 10/29/24 History tablet omeprazole 20 mg capsule,delayed 20 mg PO DAILY 02/01/24 10/29/24 History release losartan 50 mg tablet 50 mg PO DAILY 10/12/24 10/29/24 History simvastatin 20 mg tablet 40 mg PO QPM 10/12/24 10/29/24 History spironolactone 25 mg tablet 12.5 mg PO DAILY 10/12/24 10/29/24 History losartan 25 mg tablet 25 mg PO DAILY 10/29/24 10/29/24 History Allergies Allergy/AdvReac Type Severity Reaction Status Date / Time adhesive tape Allergy Severe Swelling Verified 10/29/24 06:19 amlodipine Allergy Severe Swelling Verified 10/29/24 06:19 LOWER EXT. Iodinated Contrast Media Allergy Severe HEART Verified 10/29/24 06:19 ARRYTHMIA morphine Allergy Severe Dizziness Verified 10/29/24 06:19 codeine Allergy Intermediate Hallucinati Verified 10/29/24 06:19 ng latex Allergy Intermediate Itching Verified 10/29/24 06:19 Penicillins Allergy Intermediate Hives Verified 10/29/24 06:19 prednisone Allergy Intermediate HEART Verified 10/29/24 06:19 PALPITATIONS hydromorphone AdvReac Intermediate Nausea and Verified 10/29/24 06:19 Vomiting Sulfa (Sulfonamide AdvReac Intermediate Nausea and Verified 10/29/24 06:19 Antibiotics) Vomiting Vital Signs Vital Signs - 24 hr 10/28/24 20:07 10/28/24 22:44 10/29/24 02:34 Temperature 98.0 F 97.9 F Pulse Rate 79 64 73 Respiratory Rate 16 18 15 Blood Pressure 204/102 H 158/60 H 200/67 H Pulse Oximetry 100 99 99 Oxygen Delivery Room Air 10/29/24 03:36 10/29/24 03:38 10/29/24 05:45 Temperature 97.6 F Pulse Rate 62 65 87 Respiratory Rate 17 18 Blood Pressure 174/59 H 166/52 H Pulse Oximetry 98 100 Oxygen Delivery 10/29/24 09:10 10/29/24 09:10 10/29/24 09:21 Temperature 97.6 F Pulse Rate 92 100 Respiratory Rate 22 H Blood Pressure 166/60 H Pulse Oximetry 100 Oxygen Delivery Room Air 10/29/24 11:13 10/29/24 12:00 Temperature Pulse Rate 92 84 Respiratory Rate Blood Pressure Pulse Oximetry Oxygen Delivery Exam Const: General: cooperative and healthy appearing Resp: Effort & Inspection: normal respiratory effort and able to speak in complete sentences Auscultation: clear to auscultation bilaterally Cardio: Rate: regular rate Rhythm: regular rhythm GI: Inspection: normal to inspection GI Palp: No No hepatosplenomegaly present Auscultation: normal bowel sounds Rectal Exam: deferred Skin: General skin exam: normal color Psych: Appearance: grossly normal Mental Status: mental status grossly normal Results Labs 10/28/24 21:05 10/29/24 04:50 Labs: Short CBC 10/28/24 Range/Units 21:05 WBC 10.4 H (4.5-10.0) K/mm3 Hgb 7.2 L D (12.0-15.0) g/dL Hct 23.6 L (37.0-47.0) % Plt Count 378 H (150-375) k/mm3 BMP 05/16/25 05/17/25 21:05 04:50 Sodium 121 L 124 L Potassium 4.4 Chloride 88 L Carbon Dioxide 23 BUN 16 Creatinine 0.77 Glucose 90 Calcium 8.7 Liver Function 10/28/24 Range/Units 21:05 Total Bilirubin 0.4 (0.2-1.3) mg/dL AST 23 (14-36) U/L ALT 14 (6-35) U/L Alkaline Phosphatase 86 (38-126) U/L Albumin 4.2 (3.5-5.1) g/dL Urine 10/28/24 Range/Units 22:49 Urine Color Yellow (Yellow) Urine Appearance Clear (Clear) Urine pH 7.0 (5.0-9.0) Ur Specific [place] 1.008 (1.001-1.035) Urine Protein Negative (Negative) mg/dL Urine Glucose (UA) Negative (Negative) mg/dL
[2024-10-29] MEDS: SIMVASTATIN 20 MG TABLET 40 MG PO (18:23)
[2024-10-30] VITALS (16 sets, daily range): BP systolic 130–154; BP diastolic 44–62; PULSE 56–76; RESP 16–20; TEMP 36.1–37.1; O2SAT 96–100
[2024-10-30] MEDS: SODIUM CHLORIDE 0.9% IV 1,000 ML 100 ML IV CONT ×2 (00:10→12:51)
[2024-10-30 05:33] LABS: Alanine Aminotransferase 13 U/L (6-35); Albumin Level 3.5 g/dL (3.5-5.1); Alkaline Phosphatase 82 U/L (38-126); Anion Gap 7 mmol/L (4-12); Aspartate Amino Transferase 21 U/L (14-36); Bilirubin,Total 0.4 mg/dL (0.2-1.3); Blood Urea Nitrogen 13 mg/dL (7-17); Calcium 8.6 mg/dL (8.4-10.2); Carbon Dioxide 21 mmol/L (22-30); Chloride 104 mmol/L (98-107); Estimated CRCL calculation 79 ml/min; Estimated Glomerular Filt Rate > 60; Glucose 87 mg/dL (65-110); Magnesium 2.1 mg/dL (1.6-2.3); Sodium 132 mmol/L (137-145)
[2024-10-30 06:06] LABS: Basophils Absolute Auto 0.1 K/mm3 (0.0-0.1); Basophils Percent Auto 0.9 % (0.2-1.2); Eosinophils Absolute Auto 0.1 K/mm3 (0-0.3); Eosinophils Percent Auto 1.9 % (0-4.4); Immature Granulocyte Absolute 0.02 K/mm3 (0.00-0.031); Immature Granulocyte Percent A 0.3 % (0-0.5); Lymphocytes Absolute Auto 1.61 K/mm3 (0.9-3.2); Lymphocytes Percent Auto 25.4 % (18.3-44.2); Mean Corpuscular HGB Conc 31.6 g/dl (32-36); Mean Corpuscular Hemoglobin 28.4 pg (26-34); Mean Corpuscular Volume 90.1 fl (80-100); Mean Platelet Volume 10.4 fl (7.4-10.4); Monocytes Absolute Auto 0.8 K/mm3 (0.1-0.6); Monocytes Percent Auto 12.5 % (2.6-8.5); Neutrophils Absolute Auto 3.7 K/mm3 (1.3-6.7); Platelet Count Result 336 k/mm3 (150-375); Red Blood Count 2.32 M/mm3 (4.2-5.4); Red Cell Distribution Width 12.3 % (11.5-14.5); White Blood Count 6.3 K/mm3 (4.5-10.0)
[2024-10-30 06:11] LABS: Hematocrit 20.9 % (37.0-47.0); Hemoglobin 6.6 g/dL (12.0-15.0)
[2024-10-30] MEDS: ISOSORBIDE MONONITRATE 60 MG TAB.ER.24H PO (08:30)
[2024-10-30] MEDS: busPIRone HCL 5 MG TABLET PO (08:30)
[2024-10-30] MEDS: LOSARTAN POTASSIUM 25 MG TABLET PO (08:34)
[2024-10-30] MEDS: METOPROLOL TARTRATE 50 MG TAB PO ×2 (08:34→20:32)
[2024-10-30] MEDS: SODIUM CHLORIDE 0.9% IV 250 ML 30 ML IV CONT (08:37)
--- NOTE | 2024-10-30 08:41 | WPDGIPROGNO ---
Progress Note: A&P Assessment and Plan (1) Iron deficiency anemia: Code(s): D50.9 - Iron deficiency anemia, unspecified Status: Acute Plan Slight drop in hemoglobin noticed from 7.2-6.6, however this is clearly attributable to dilution, secondary to sodium chloride she is receiving for hyponatremia (which is improving). No signs of GI bleeding. The patient is scheduled for EGD tomorrow as discussed in yesterday's progress note. Subjective Date/time seen: 10/30/24 08:41 Objective Data Vital Signs Vital Signs: Vital Signs - 24 hr 10/29/24 09:10 10/29/24 09:10 10/29/24 09:21 Temperature 97.6 F Pulse Rate 92 100 Respiratory Rate 22 H Blood Pressure 166/60 H Pulse Oximetry 100 Oxygen Delivery Room Air 10/29/24 11:13 10/29/24 12:00 10/29/24 14:01 Temperature 97.4 F L Pulse Rate 92 84 71 Respiratory Rate 18 Blood Pressure 154/58 H Pulse Oximetry 99 Oxygen Delivery 10/29/24 16:00 10/29/24 20:00 10/29/24 21:22 Temperature Pulse Rate 68 64 76 Respiratory Rate Blood Pressure Pulse Oximetry Oxygen Delivery 10/29/24 22:00 10/30/24 00:00 10/30/24 04:00 Temperature 98.1 F Pulse Rate 61 76 62 Respiratory Rate 16 Blood Pressure 127/51 L Pulse Oximetry 99 Oxygen Delivery 10/30/24 04:07 10/30/24 08:34 Temperature 97.7 F Pulse Rate 74 70 Respiratory Rate 18 Blood Pressure 154/62 H Pulse Oximetry 98 Oxygen Delivery Intake/Output Intake/Output: Intake & Output 10/27/24 10/28/24 10/29/24 10/30/24 23:59 23:59 23:59 23:59 Intake Total 2200 400 Balance 2200 400 Meds/Results Medications: Active Medications Generic Name Dose Route Start Last Admin Trade Name Freq PRN Reason Stop Dose Admin Acetaminophen 650 mg 10/29/24 03:06 10/29/24 18:23 Acetaminophen 325 Mg Tablet PO 650 mg Q4H PRN Administration Mild Pain (1-3) or Fever Apixaban 5 mg 10/29/24 09:00 10/29/24 21:22 Apixaban 5 Mg Tablet PO 5 mg Q12HR CHIP Administration Buspirone HCl 5 mg 10/29/24 09:00 10/30/24 08:30 Buspirone Hcl 5 Mg Tablet PO 5 mg Q12HR CHIP Administration Fluticasone Propionate 2 spray 10/29/24 10:42 Fluticasone Propionate 0.05% Na Spr 16 Gm Btl (*Bkc) NASAL DAILY PRN Congestion Sodium Chloride 1,000 mls @ 100 mls/hr 10/29/24 07:50 10/30/24 00:10 Normal Saline Iv IV CONT 100 mls/hr .Q10H CHIP Administration Sodium Chloride 250 mls @ 30 mls/hr 10/30/24 06:22 10/30/24 08:37 Normal Saline Iv IV CONT 10/30/24 14:41 30 mls/hr .Q8H20M STA Administration Iron Sucrose 400 mg/ Iron 275 mls @ 78.571 mls/hr 10/30/24 08:30 Sucrose 100 mg/ Sodium IVPB 10/30/24 11:59 Chloride ONCE ONE Isosorbide Mononitrate 60 mg 10/29/24 09:00 10/30/24 08:30 Isosorbide Mononitrate 60 Mg Tab.Er.24h PO 60 mg DAILY CHIP Administration Losartan Potassium 50 mg 10/29/24 18:00 10/30/24 07:43 Losartan Potassium 50 Mg Tablet PO Not Given QPM CHIP Losartan Potassium 25 mg 10/29/24 09:00 10/30/24 08:34 Losartan Potassium 25 Mg Tablet PO 25 mg DAILY CHIP Administration Metoprolol Tartrate 50 mg 10/29/24 09:00 10/30/24 08:34 Metoprolol Tartrate 50 Mg Tab PO 50 mg Q12HR CHIP Administration Ondansetron HCl 4 mg 10/29/24 03:06 Ondansetron Inj 4 Mg/2 Ml Vial IV PUSH Q4H PRN Nausea Simvastatin 40 mg 10/29/24 18:00 10/29/24 18:23 Simvastatin 20 Mg Tablet PO 40 mg QPM CHIP Administration Radiology Results: ITS Impressions Chest X-Ray 10/28/24 21:59 IMPRESSION: No acute cardiopulmonary pathology. Head CT 10/29/24 08:42 IMPRESSION: 1. No acute intracranial process. 2. Nonaggressive appearing likely chronic benign lytic lesion involving the left side of the clivus and the left petrous apex without evident solid soft tissue component. Recommend 0further evaluation with pre and postcontrast MRI. Chest/Abdomen/Pelvis CT 10/29/24 17:38 IMPRESSION: CHEST: 1. No acute cardiopulmonary pathology. 2. Subcarinal calcified lymph nodes. ABDOMEN/PELVIS: 1. No evidence of appendicitis, diverticulitis or intestinal obstruction. 2. Hyperdense material in the descending and sigmoid colon. Blood cannot be excluded. Colonoscopy advised. 3. Small hyperdense area in the left kidney lower pole. Follow-up advised. 4. Small aneurysmal dilatation in the distal aorta measuring 2.5 x 2.4 cm. Labs Labs: Laboratory Results - last 24 hr 10/30/24 10/30/24 05:07 06:32 WBC 6.3 RBC 2.32 L Hgb 6.6 L* Hct 20.9 L* MCV 90.1 MCH 28.4 MCHC 31.6 L RDW 12.3 Plt Count 336 MPV 10.4 Immature Gran % (Auto) 0.3 Neut % (Auto) 59.0 Lymph % (Auto) 25.4 [place] % (Auto) 12.5 H Eos % (Auto) 1.9 Baso % (Auto) 0.9 Lymph # (Auto) 1.61 [place] # (Auto) 0.8 H Eos # (Auto) 0.1 Baso # (Auto) 0.1 Abs Immat Gran (auto) 0.02 Absolute Neuts (auto) 3.7 Absolute Nucleated RBC 0.000 Nucleated RBC % 0.0 Sodium 132 L Potassium 4.0 Chloride 104 Carbon Dioxide 21 L Anion Gap 7 BUN 13 Creatinine 0.68 L Estim Creat Clear Calc 79 Estimated GFR > 60 Glucose 87 Calcium 8.6 Magnesium 2.1 Total Bilirubin 0.4 AST 21 ALT 13 Alkaline Phosphatase 82 Total Protein 6.0 L Albumin 3.5 Blood Type O Positive Antibody Screen Negative Crossmatch See Detail
[2024-10-30] MEDS: IRON SUCROSE COMPLEX 400 MG, IRON SUCROSE COMPLEX 100 MG in SODIUM CHLORIDE 0.9% IV 250 ML 78.57 MG IVPB (12:52)
--- NOTE | 2024-10-30 12:59 | P.PNIM_ITS ---
Progress Note: A&P Assessment and Plan (1) Acute hyponatremia: Code(s): E87.1 - Hypo-osmolality and hyponatremia Status: Acute Plan Hyponatremia, improving Likely from HCTZ she was taken outpatient Na 121 on admission, Na 132 continue IVF Hold HCTZ Anemia Hb 7.2, ferritin 6.53 Hb 6.6 today, receiving 1 unit pRBC Venofer 1000/1000 monitor h and H For EGD tomorrow GI following CAD s/p stents Continue home meds Afib Eliquis on Hold due to possibel GI leed FOBT pending HTN BP elevated COntinue home meds Anxiety start Buspirone DVT prophylaxis on SCDs Full code Subjective Date/time seen: 10/30/24 12:59 Interval history: COmfortable at bedside Review of Systems Review of Systems: ALL other systems were reviewed and negative except as noted in the HPI above Exam Narrative: General: alert and comfortable Eyes: EOMI, PERRLA ENNT External ears normal, Neck is supple, no masses, Respiratory systems: Clear to auscultation Cardiovascular S1, S2, normal rhythm, no murmur, rub, or gallop; no thrill or palpable murmurs on palpation. Gastrointestinal: soft, non-tender, and non-distended abdomen with no masses; BS present Skin: no rash, lesions, ulcerations, subcutaneous nodules or induration Musculoskeletal: no abnormality and no tenderness, normal ROM Neurologic: Alert and oriented x3, non focal Mental Status Exam: normal affect Objective Data Vital Signs Vital Signs: Vital Signs - 24 hr 10/29/24 14:01 10/29/24 16:00 10/29/24 20:00 Temperature 97.4 F L Pulse Rate 71 68 64 Respiratory Rate 18 Blood Pressure 154/58 H Pulse Oximetry 99 Oxygen Delivery 10/29/24 21:22 10/29/24 22:00 10/30/24 00:00 Temperature 98.1 F Pulse Rate 76 61 76 Respiratory Rate 16 Blood Pressure 127/51 L Pulse Oximetry 99 Oxygen Delivery 10/30/24 04:00 10/30/24 04:07 10/30/24 08:34 Temperature 97.7 F Pulse Rate 62 74 70 Respiratory Rate 18 Blood Pressure 154/62 H Pulse Oximetry 98 Oxygen Delivery 10/30/24 08:50 10/30/24 08:55 10/30/24 09:14 Temperature 98.2 F 98.6 F Pulse Rate 65 60 Respiratory Rate 16 16 Blood Pressure 137/59 L 138/47 L Pulse Oximetry 100 96 Oxygen Delivery Room Air 10/30/24 10:14 10/30/24 11:14 10/30/24 12:14 Temperature 98.6 F 98.6 F 98.6 F Pulse Rate 60 62 60 Respiratory Rate 16 16 18 Blood Pressure 132/45 L 132/46 L 130/44 L Pulse Oximetry 100 100 98 Oxygen Delivery 10/30/24 12:50 Temperature 98.8 F Pulse Rate 56 L Respiratory Rate 18 Blood Pressure 131/44 L Pulse Oximetry 99 Oxygen Delivery Intake/Output Intake/Output: Intake & Output 10/27/24 10/28/24 10/29/24 10/30/24 23:59 23:59 23:59 23:59 Intake Total 2199 2109 Balance 2199 2109 Meds/Results Medications: Active Medications Generic Name Dose Route Start Last Admin Trade Name Freq PRN Reason Stop Dose Admin Acetaminophen 650 mg 10/29/24 03:06 10/29/24 18:23 Acetaminophen 325 Mg Tablet PO 650 mg Q4H PRN Administration Mild Pain (1-3) or Fever Apixaban 5 mg 10/29/24 09:00 10/29/24 21:22 Apixaban 5 Mg Tablet PO 5 mg Q12HR CHIP Administration Buspirone HCl 5 mg 10/29/24 09:00 10/30/24 08:30 Buspirone Hcl 5 Mg Tablet PO 5 mg Q12HR CHIP Administration Fluticasone Propionate 2 spray 10/29/24 10:42 Fluticasone Propionate 0.05% Na Spr 16 Gm Btl (*Bkc) NASAL DAILY PRN Congestion Sodium Chloride 1,000 mls @ 100 mls/hr 10/29/24 07:50 10/30/24 12:51 Normal Saline Iv IV CONT 100 mls/hr .Q10H CHIP Administration Sodium Chloride 250 mls @ 30 mls/hr 10/30/24 06:22 10/30/24 08:37 Normal Saline Iv IV CONT 10/30/24 14:41 30 mls/hr .Q8H20M STA Administration Isosorbide Mononitrate 60 mg 10/29/24 09:00 10/30/24 08:30 Isosorbide Mononitrate 60 Mg Tab.Er.24h PO 60 mg DAILY CHIP Administration Losartan Potassium 50 mg 10/29/24 18:00 10/30/24 07:43 Losartan Potassium 50 Mg Tablet PO Not Given QPM CHIP Losartan Potassium 25 mg 10/29/24 09:00 10/30/24 08:34 Losartan Potassium 25 Mg Tablet PO 25 mg DAILY CHIP Administration Metoprolol Tartrate 50 mg 10/29/24 09:00 10/30/24 08:34 Metoprolol Tartrate 50 Mg Tab PO 50 mg Q12HR CHIP Administration Ondansetron HCl 4 mg 10/29/24 03:06 Ondansetron Inj 4 Mg/2 Ml Vial IV PUSH Q4H PRN Nausea Simvastatin 40 mg 10/29/24 18:00 10/29/24 18:23 Simvastatin 20 Mg Tablet PO 40 mg QPM CHIP Administration Radiology Results: ITS Impressions Chest X-Ray 10/28/24 21:59 IMPRESSION: No acute cardiopulmonary pathology. Head CT 10/29/24 08:42 IMPRESSION: 1. No acute intracranial process. 2. Nonaggressive appearing likely chronic benign lytic lesion involving the left side of the clivus and the left petrous apex without evident solid soft tissue component. Recommend 0further evaluation with pre and postcontrast MRI. Chest/Abdomen/Pelvis CT 10/29/24 17:38 IMPRESSION: CHEST: 1. No acute cardiopulmonary pathology. 2. Subcarinal calcified lymph nodes. ABDOMEN/PELVIS: 1. No evidence of appendicitis, diverticulitis or intestinal obstruction. 2. Hyperdense material in the descending and sigmoid colon. Blood cannot be excluded. Colonoscopy advised. 3. Small hyperdense area in the left kidney lower pole. Follow-up advised. 4. Small aneurysmal dilatation in the distal aorta measuring 2.5 x 2.4 cm. Labs Labs: Laboratory Results - last 24 hr 10/30/24 10/30/24 05:07 06:32 WBC 6.3 RBC 2.32 L Hgb 6.6 L* Hct 20.9 L* MCV 90.1 MCH 28.4 MCHC 31.6 L RDW 12.3 Plt Count 336 MPV 10.4 Immature Gran % (Auto) 0.3 Neut % (Auto) 59.0 Lymph % (Auto) 25.4 [place] % (Auto) 12.5 H Eos % (Auto) 1.9 Baso % (Auto) 0.9 Lymph # (Auto) 1.61 [place] # (Auto) 0.8 H Eos # (Auto) 0.1 Baso # (Auto) 0.1 Abs Immat Gran (auto) 0.02 Absolute Neuts (auto) 3.7 Absolute Nucleated RBC 0.000 Nucleated RBC % 0.0 Sodium 132 L Potassium 4.0 Chloride 104 Carbon Dioxide 21 L Anion Gap 7 BUN 13 Creatinine 0.68 L Estim Creat Clear Calc 79 Estimated GFR > 60 Glucose 87 Calcium 8.6 Magnesium 2.1 Total Bilirubin 0.4 AST 21 ALT 13 Alkaline Phosphatase 82 Total Protein 6.0 L Albumin 3.5 Blood Type O Positive Antibody Screen Negative Crossmatch See Detail
[2024-10-30] MEDS: ACETAMINOPHEN 325 MG TABLET 650 MG PO (15:48)
[2024-10-30] MEDS: LOSARTAN POTASSIUM 50 MG TABLET PO (19:16)
[2024-10-30] MEDS: SIMVASTATIN 20 MG TABLET 40 MG PO (19:16)
[2024-10-31] VITALS (15 sets, daily range): BP systolic 124–153; BP diastolic 42–51; PULSE 59–72; RESP 16–24; TEMP 36.1–36.4; O2SAT 93–100
[2024-10-31] MEDS: SODIUM CHLORIDE 0.9% IV 1,000 ML 100 ML IV CONT (03:23)
[2024-10-31 06:00] LABS: Basophils Absolute Auto 0.1 K/mm3 (0.0-0.1); Basophils Percent Auto 0.8 % (0.2-1.2); Eosinophils Absolute Auto 0.2 K/mm3 (0-0.3); Eosinophils Percent Auto 2.2 % (0-4.4); Hematocrit 24.3 % (37.0-47.0); Hemoglobin 7.3 g/dL (12.0-15.0); Immature Granulocyte Absolute 0.06 K/mm3 (0.00-0.031); Immature Granulocyte Percent A 0.8 % (0-0.5); Lymphocytes Absolute Auto 1.56 K/mm3 (0.9-3.2); Lymphocytes Percent Auto 21.1 % (18.3-44.2); Mean Corpuscular Hemoglobin 28.1 pg (26-34); Mean Corpuscular Volume 93.5 fl (80-100); Mean Platelet Volume 10.3 fl (7.4-10.4); Monocytes Absolute Auto 0.9 K/mm3 (0.1-0.6); Monocytes Percent Auto 11.8 % (2.6-8.5); Neutrophils Absolute Auto 4.7 K/mm3 (1.3-6.7); Neutrophils Percent Auto 63.3 % (45.5-73.1); Nucleated Red Blood Cells Perc 0.4 % (0.0-0.2); Platelet Count Result 306 k/mm3 (150-375); Red Cell Distribution Width 13.2 % (11.5-14.5); White Blood Count 7.4 K/mm3 (4.5-10.0)
[2024-10-31 06:03] LABS: Alanine Aminotransferase 14 U/L (6-35); Albumin Level 3.3 g/dL (3.5-5.1); Alkaline Phosphatase 75 U/L (38-126); Anion Gap 6 mmol/L (4-12); Aspartate Amino Transferase 26 U/L (14-36); Bilirubin,Total 0.3 mg/dL (0.2-1.3); Blood Urea Nitrogen 9 mg/dL (7-17); Calcium 8.6 mg/dL (8.4-10.2); Carbon Dioxide 23 mmol/L (22-30); Chloride 107 mmol/L (98-107); Estimated CRCL calculation 79 ml/min; Estimated Glomerular Filt Rate > 60; Glucose 80 mg/dL (65-110); Magnesium 2.1 mg/dL (1.6-2.3); Sodium 136 mmol/L (137-145)
[2024-10-31] MEDS: LACTATED RINGERS 1,000 ML 150 ML IV CONT (10:12)
--- NOTE | 2024-10-31 10:27 | P.PNAN_ITS ---
Anes - Initial Pre Proc Eval Procedure: Operation Date: 10/31/24 15:00 Proposed Procedures p Esophagogastroduodenoscopy - Dilip Villa MD Date/Time: 10/31/24 10:27 Surgeon: Yohan Go MD Pre Op Diagnosis: Hyponatremia, Dizziness Patient Data Age: 78 Gender: F Height: 1.73 m Weight: 110.1 kg Last Vital Signs Temp 36.1 C L 10/31/24 10:07 Pulse 66 10/31/24 10:07 Resp 18 10/31/24 10:07 BP 152/43 H 10/31/24 10:07 Pulse Ox 99 10/31/24 10:07 O2 Del Method Room Air 10/31/24 10:07 Allergies Allergy/AdvReac Type Severity Reaction Status Date / Time adhesive tape Allergy Severe Swelling Verified 10/29/24 06:19 amlodipine Allergy Severe Swelling Verified 10/29/24 06:19 LOWER EXT. Iodinated Contrast Media Allergy Severe HEART Verified 10/29/24 06:19 ARRYTHMIA morphine Allergy Severe Dizziness Verified 10/29/24 06:19 codeine Allergy Intermediate Hallucinati Verified 10/29/24 06:19 ng latex Allergy Intermediate Itching Verified 10/29/24 06:19 Penicillins Allergy Intermediate Hives Verified 10/29/24 06:19 prednisone Allergy Intermediate HEART Verified 10/29/24 06:19 PALPITATIONS hydromorphone AdvReac Intermediate Nausea and Verified 10/29/24 06:19 Vomiting Sulfa (Sulfonamide AdvReac Intermediate Nausea and Verified 10/29/24 06:19 Antibiotics) Vomiting Home Medications ?Medication ?Instructions ?Recorded ?Confirmed ?Type Tums 500 1,000 mg PO DAILY 02/01/24 10/29/24 History apixaban 5 mg tablet (Eliquis) 5 mg PO BID 02/01/24 10/29/24 History fluticasone propionate 50 2 mcg intranasal DAILY PRN 02/01/24 10/29/24 History mcg/actuation nasal Congestion spray,suspension isosorbide mononitrate 30 mg 60 mg PO DAILY 02/01/24 10/29/24 History tablet,extended release 24 hr loratadine 10 mg tablet 10 mg PO DAILY PRN Allergy Symptoms 02/01/24 10/29/24 History metoprolol tartrate 50 mg tablet 50 mg PO BID 02/01/24 10/29/24 History nitroglycerin 0.4 mg sublingual 0.4 mg sublingual PRN PRN Angina 02/01/24 10/29/24 History tablet omeprazole 20 mg capsule,delayed 20 mg PO DAILY 02/01/24 10/29/24 History release losartan 50 mg tablet 50 mg PO DAILY 10/12/24 10/29/24 History simvastatin 20 mg tablet 40 mg PO QPM 10/12/24 10/29/24 History spironolactone 25 mg tablet 12.5 mg PO DAILY 10/12/24 10/29/24 History losartan 25 mg tablet 25 mg PO DAILY 10/29/24 10/29/24 History Laboratory Tests 10/30/24 10/31/24 06:32 05:30 WBC 7.4 K/mm3 (4.5-10.0) RBC 2.60 L M/mm3 (4.2-5.4) Hgb 7.3 L g/dL (12.0-15.0) Hct 24.3 L % (37.0-47.0) MCV 93.5 fl (80-100) MCH 28.1 pg (26-34) MCHC 30.0 L g/dl (32-36) RDW 13.2 % (11.5-14.5) Plt Count 306 k/mm3 (150-375) MPV 10.3 fl (7.4-10.4) Immature Gran % (Auto) 0.8 H % (0-0.5) Neut % (Auto) 63.3 % (45.5-73.1) Lymph % (Auto) 21.1 % (18.3-44.2) [place] % (Auto) 11.8 H % (2.6-8.5) Eos % (Auto) 2.2 % (0-4.4) Baso % (Auto) 0.8 % (0.2-1.2) Lymph # (Auto) 1.56 K/mm3 (0.9-3.2) [place] # (Auto) 0.9 H K/mm3 (0.1-0.6) Eos # (Auto) 0.2 K/mm3 (0-0.3) Baso # (Auto) 0.1 K/mm3 (0.0-0.1) Abs Immat Gran (auto) 0.06 H K/mm3 (0.00-0.031) Absolute Neuts (auto) 4.7 K/mm3 (1.3-6.7) Absolute Nucleated RBC 0.030 H K/mm3 (0.0-0.012) Nucleated RBC % 0.4 H % (0.0-0.2) Sodium 136 L mmol/L (137-145) Potassium 4.0 mmol/L (3.4-5.0) Chloride 107 mmol/L (98-107) Carbon Dioxide 23 mmol/L (22-30) Anion Gap 6 mmol/L (4-12) BUN 9 mg/dL (7-17) Creatinine 0.68 L mg/dL (0.7-1.0) Estim Creat Clear Calc 79 ml/min Estimated GFR > 60 (59 - ) Glucose 80 mg/dL (65-110) Calcium 8.6 mg/dL (8.4-10.2) Magnesium 2.1 mg/dL (1.6-2.3) Total Bilirubin 0.3 mg/dL (0.2-1.3) AST 26 U/L (14-36) ALT 14 U/L (6-35) Alkaline Phosphatase 75 U/L (38-126) Total Protein 6.0 L g/dL (6.3-8.2) Albumin 3.3 L g/dL (3.5-5.1) Crossmatch See Detail Patient hx anesthesia problems: none Family hx anesthesia problems: none Results Review: All pre-operative results and documents have been reviewed as part of the pre- operative evaluation. [facility] Past Medical History Medical History Atrial fibrillation Colon polyp GERD (gastroesophageal reflux disease) Surgical History Surgical History History of cardiac cath 5 stents in heart Family History Family History Mother TIA (transient ischemic attack) Arterial atherosclerosis Father Malignant neoplasm of prostate Social History Social History Smoking status: Never smoker Alcohol intake: never Substance use: never Substance use type: does not use Do You Feel Safe in your Home?: Yes Lack of Transportation: No Lack of Food: Never True Current Housing: I Have Housing Concerned About Future Housing: No Difficulty Paying Gas/Electric Bills: No Difficulty Paying for Meds: No Currently Unemployed: YES Education: Associate Degree Difficulty w/ Childcare or Family Care: No Living arrangements: with family Spiritual care concerns: No Anes - Eval Final PreProcedure Day of Procedure 10/31/24 10:27 Patient weight: obese Heart: regular rate and rhythm Lungs: clear to auscultation Airway: Mallampati scale class II Neurological: alert and oriented Last oral intake: >/= 8 hours ASA classification: IV Emergent: no Anesthetic plan: proceed Anesthesia type and monitoring: general GIVS Results Review: All pre-operative results and documents have been reviewed as part of the pre- operative evaluation. Informed Consent: The patient's anesthetic plan and its attendant risks and benefits were discussed with the patient/family/POA. Questions were solicited and answers provided to the satisfaction of the patient/family/POA.
[2024-10-31] MEDS: ISOSORBIDE MONONITRATE 60 MG TAB.ER.24H PO (12:09)
[2024-10-31] MEDS: METOPROLOL TARTRATE 50 MG TAB PO ×2 (12:09→20:22)
[2024-10-31] MEDS: LOSARTAN POTASSIUM 25 MG TABLET PO (12:09)
--- NOTE | 2024-10-31 13:25 | P.PNIM_ITS ---
Progress Note: A&P Assessment and Plan (1) Acute hyponatremia: Code(s): E87.1 - Hypo-osmolality and hyponatremia Status: Acute Plan Hyponatremia, resolved Likely from HCTZ she was taken outpatient Na 121 on admission, Na 136 s/p IVF HCTZ on hold Anemia Hb 7.3 s/p 1 unit pRBC ferritin 6.53 Venofer 1000/1000 monitor h and H For EGD today for possible GI bleed GI following CAD s/p stents Continue home meds Afib Eliquis on Hold due to possible GI leed FOBT pending HTN BP elevated COntinue home meds Anxiety start Buspirone DVT prophylaxis on SCDs Full code Subjective Date/time seen: 10/31/24 13:25 Interval history: COmfortable at bedside Review of Systems Review of Systems: ALL other systems were reviewed and negative except as noted in the HPI above Exam Narrative: General: alert and comfortable Eyes: EOMI, PERRLA ENNT External ears normal, Neck is supple, no masses, Respiratory systems: Clear to auscultation Cardiovascular S1, S2, normal rhythm, no murmur, rub, or gallop; no thrill or palpable murmurs on palpation. Gastrointestinal: soft, non-tender, and non-distended abdomen with no masses; BS present Skin: no rash, lesions, ulcerations, subcutaneous nodules or induration Musculoskeletal: no abnormality and no tenderness, normal ROM Neurologic: Alert and oriented x3, non focal Mental Status Exam: normal affect Objective Data Vital Signs Vital Signs: Vital Signs - 24 hr 10/30/24 13:52 10/30/24 20:00 10/30/24 20:00 Temperature 98.6 F Pulse Rate 62 66 Respiratory Rate 16 Blood Pressure 135/45 L Pulse Oximetry 99 Oxygen Delivery Room Air Oxygen Flow Rate 10/30/24 20:32 10/30/24 22:08 10/31/24 00:00 Temperature 97.0 F L Pulse Rate 69 59 L 59 L Respiratory Rate 20 Blood Pressure 134/44 L Pulse Oximetry 100 Oxygen Delivery Oxygen Flow Rate 10/31/24 04:00 10/31/24 06:00 10/31/24 08:00 Temperature 97.5 F L Pulse Rate 59 L 68 67 Respiratory Rate 20 Blood Pressure 129/42 L Pulse Oximetry 99 Oxygen Delivery Oxygen Flow Rate 10/31/24 08:00 10/31/24 10:07 10/31/24 11:01 Temperature 97 F L Pulse Rate 66 63 Respiratory Rate 18 21 H Blood Pressure 152/43 H 124/46 L Pulse Oximetry 100 99 93 Oxygen Delivery Room Air Room Air Nasal Cannula Oxygen Flow Rate 2 10/31/24 11:11 10/31/24 11:21 10/31/24 12:00 Temperature Pulse Rate 60 72 66 Respiratory Rate 18 24 H Blood Pressure 131/45 L 153/51 H Pulse Oximetry 93 100 Oxygen Delivery Nasal Cannula Room Air Oxygen Flow Rate 2 10/31/24 12:09 Temperature Pulse Rate 67 Respiratory Rate Blood Pressure Pulse Oximetry Oxygen Delivery Oxygen Flow Rate Intake/Output Intake/Output: Intake & Output 10/28/24 10/29/24 10/30/24 10/31/24 23:59 23:59 23:59 23:59 Intake Total 3475 4475 1100 Output Total 700 2900 Balance 3475 3775 -1800 Meds/Results Medications: Active Medications Generic Name Dose Route Start Last Admin Trade Name Freq PRN Reason Stop Dose Admin Acetaminophen 650 mg 10/29/24 03:06 10/30/24 15:48 Acetaminophen 325 Mg Tablet PO 650 mg Q4H PRN Administration Mild Pain (1-3) or Fever Apixaban 5 mg 10/29/24 09:00 10/29/24 21:22 Apixaban 5 Mg Tablet PO 5 mg Q12HR CHIP Administration Buspirone HCl 5 mg 10/29/24 09:00 10/31/24 12:12 Buspirone Hcl 5 Mg Tablet PO Not Given Q12HR CHIP Fluticasone Propionate 2 spray 10/29/24 10:42 Fluticasone Propionate 0.05% Na Spr 16 Gm Btl (*Bkc) NASAL DAILY PRN Congestion Sodium Chloride 1,000 mls @ 100 mls/hr 10/29/24 07:50 10/31/24 09:53 Normal Saline Iv IV CONT 75 mls/hr .Q10H CHIP Infusion Isosorbide Mononitrate 60 mg 10/29/24 09:00 10/31/24 12:09 Isosorbide Mononitrate 60 Mg Tab.Er.24h PO 60 mg DAILY CHIP Administration Losartan Potassium 50 mg 10/29/24 18:00 10/30/24 19:16 Losartan Potassium 50 Mg Tablet PO 50 mg QPM CHIP Administration Losartan Potassium 25 mg 10/29/24 09:00 10/31/24 12:09 Losartan Potassium 25 Mg Tablet PO 25 mg DAILY CHIP Administration Metoprolol Tartrate 50 mg 10/29/24 09:00 10/31/24 12:09 Metoprolol Tartrate 50 Mg Tab PO 50 mg Q12HR CHIP Administration Ondansetron HCl 4 mg 10/29/24 03:06 Ondansetron Inj 4 Mg/2 Ml Vial IV PUSH Q4H PRN Nausea Simvastatin 40 mg 10/29/24 18:00 10/30/24 19:16 Simvastatin 20 Mg Tablet PO 40 mg QPM CHIP Administration Radiology Results: ITS Impressions Chest X-Ray 10/28/24 21:59 IMPRESSION: No acute cardiopulmonary pathology. Head CT 10/29/24 08:42 IMPRESSION: 1. No acute intracranial process. 2. Nonaggressive appearing likely chronic benign lytic lesion involving the left side of the clivus and the left petrous apex without evident solid soft tissue component. Recommend 0further evaluation with pre and postcontrast MRI. Chest/Abdomen/Pelvis CT 10/29/24 17:38 IMPRESSION: CHEST: 1. No acute cardiopulmonary pathology. 2. Subcarinal calcified lymph nodes. ABDOMEN/PELVIS: 1. No evidence of appendicitis, diverticulitis or intestinal obstruction. 2. Hyperdense material in the descending and sigmoid colon. Blood cannot be excluded. Colonoscopy advised. 3. Small hyperdense area in the left kidney lower pole. Follow-up advised. 4. Small aneurysmal dilatation in the distal aorta measuring 2.5 x 2.4 cm. Brain MRI 10/31/24 08:29 IMPRESSION: 1. Nonenhancing cystic-appearing lytic lesion involving the left side of the clivus and the left petrous apex. Constellation of findings most consistent with either a neuroenteric cyst, arachnoid cyst, intraosseous extension of an epidermoid cyst or ecchordosis physaliphora. Cholesteatoma would be less likely given the lack of restricted diffusion and there is no evident enhancement to suggest chordoma or other malignant neoplasm. Labs Labs: Laboratory Results - last 24 hr 10/31/24 05:30 WBC 7.4 RBC 2.60 L Hgb 7.3 L Hct 24.3 L MCV 93.5 MCH 28.1 MCHC 30.0 L RDW 13.2 Plt Count 306 MPV 10.3 Immature Gran % (Auto) 0.8 H Neut % (Auto) 63.3 Lymph % (Auto) 21.1 [place] % (Auto) 11.8 H Eos % (Auto) 2.2 Baso % (Auto) 0.8 Lymph # (Auto) 1.56 [place] # (Auto) 0.9 H Eos # (Auto) 0.2 Baso # (Auto) 0.1 Abs Immat Gran (auto) 0.06 H Absolute Neuts (auto) 4.7 Absolute Nucleated RBC 0.030 H Nucleated RBC % 0.4 H Sodium 136 L Potassium 4.0 Chloride 107 Carbon Dioxide 23 Anion Gap 6 BUN 9 Creatinine 0.68 L Estim Creat Clear Calc 79 Estimated GFR > 60 Glucose 80 Calcium 8.6 Magnesium 2.1 Total Bilirubin 0.3 AST 26 ALT 14 Alkaline Phosphatase 75 Total Protein 6.0 L Albumin 3.3 L
[2024-10-31] MEDS: CALCIUM CARBONATE (TUMS) 500 MG (200 MG ELEMENTAL) PO (16:06)
[2024-10-31] MEDS: SIMVASTATIN 20 MG TABLET 40 MG PO (17:35)
[2024-10-31] MEDS: LOSARTAN POTASSIUM 50 MG TABLET PO (17:36)
[2024-10-31] MEDS: APIXABAN 5 MG TABLET PO (20:22)
[2024-11-01] VITALS (13 sets, daily range): BP systolic 128–146; BP diastolic 43–83; PULSE 61–77; RESP 16–20; TEMP 35.9–36.9; O2SAT 98–99
[2024-11-01 06:06] LABS: Basophils Absolute Auto 0.1 K/mm3 (0.0-0.1); Basophils Percent Auto 1.1 % (0.2-1.2); Eosinophils Absolute Auto 0.1 K/mm3 (0-0.3); Eosinophils Percent Auto 1.8 % (0-4.4); Hematocrit 25.5 % (37.0-47.0); Hemoglobin 7.7 g/dL (12.0-15.0); Immature Granulocyte Absolute 0.07 K/mm3 (0.00-0.031); Immature Granulocyte Percent A 0.9 % (0-0.5); Lymphocytes Absolute Auto 1.97 K/mm3 (0.9-3.2); Lymphocytes Percent Auto 24.7 % (18.3-44.2); Mean Corpuscular HGB Conc 30.2 g/dl (32-36); Mean Corpuscular Hemoglobin 28.6 pg (26-34); Mean Corpuscular Volume 94.8 fl (80-100); Mean Platelet Volume 9.9 fl (7.4-10.4); Monocytes Absolute Auto 0.7 K/mm3 (0.1-0.6); Monocytes Percent Auto 8.8 % (2.6-8.5); Neutrophils Percent Auto 62.7 % (45.5-73.1); Nucleated Red Blood Cells Perc 0.5 % (0.0-0.2); Platelet Count Result 322 k/mm3 (150-375); Red Blood Count 2.69 M/mm3 (4.2-5.4); Red Cell Distribution Width 13.3 % (11.5-14.5)
[2024-11-01 06:08] LABS: Alanine Aminotransferase 14 U/L (6-35); Albumin Level 3.7 g/dL (3.5-5.1); Alkaline Phosphatase 84 U/L (38-126); Anion Gap 4 mmol/L (4-12); Aspartate Amino Transferase 24 U/L (14-36); Bilirubin,Total 0.4 mg/dL (0.2-1.3); Blood Urea Nitrogen 10 mg/dL (7-17); Calcium 9.1 mg/dL (8.4-10.2); Carbon Dioxide 25 mmol/L (22-30); Chloride 106 mmol/L (98-107); Estimated CRCL calculation 78 ml/min; Estimated Glomerular Filt Rate > 60; Glucose 85 mg/dL (65-110); Potassium 4.5 mmol/L (3.4-5.0); Sodium 135 mmol/L (137-145)
[2024-11-01] MEDS: ISOSORBIDE MONONITRATE 60 MG TAB.ER.24H PO (09:12)
[2024-11-01] MEDS: METOPROLOL TARTRATE 50 MG TAB PO ×2 (09:12→20:45)
[2024-11-01] MEDS: APIXABAN 5 MG TABLET PO ×2 (09:12→20:46)
[2024-11-01] MEDS: PANTOPRAZOLE 40 MG TABLET PO (09:13)
[2024-11-01] MEDS: LOSARTAN POTASSIUM 25 MG TABLET PO (09:13)
[2024-11-01 12:33] LABS: IFOB Positive Control Positive; Immunochemical Fecal Occult Bl Positive (N)
--- NOTE | 2024-11-01 16:27 | PM.IMPN ---
Progress Note: A&P Assessment and Plan (1) Acute hyponatremia: Code(s): E87.1 - Hypo-osmolality and hyponatremia Status: Acute Plan Brain cyst History of renal cyst Was diagnosed due to high blood pressure Serial monitoring of renal cyst Neurology consult,Awaiting recommendation Hyponatremia, resolved Likely from HCTZ she was taken outpatient Na 121 on admission, Na 136 s/p IVF HCTZ on hold Anemia Hb 7.3 s/p 1 unit pRBC ferritin 6.53 Venofer 1000/1000 monitor h and H GI reports no acute intervention during this hospitalization GI following CAD s/p stents Continue home meds Afib Eliquis on Hold due to possible GI leed FOBT pending HTN BP elevated COntinue home meds Anxiety start Buspirone DVT prophylaxis on SCDs Full code Subjective Date/time seen: 11/01/24 16:27 Interval history: Patient was admitted in the setting of dizziness. Patient reports the dizziness that has been improved but still persist. MRI shows cyst. Consulted Neurology. Patient has history of cyst in her renal which was diagnosed due to high blood pressure. Patient reports her renal cyst on managed medically. Patient reports he recently had EGD and colonoscopy which was normal. Review of Systems Review of Systems: ALL other systems were reviewed and negative except as noted in the HPI above Exam Narrative: General: alert and comfortable Eyes: EOMI, PERRLA ENNT External ears normal, Neck is supple, no masses, Respiratory systems: Clear to auscultation Cardiovascular S1, S2, normal rhythm, no murmur, rub, or gallop; no thrill or palpable murmurs on palpation. Gastrointestinal: soft, non-tender, and non-distended abdomen with no masses; BS present Skin: no rash, lesions, ulcerations, subcutaneous nodules or induration Musculoskeletal: no abnormality and no tenderness, normal ROM Neurologic: Alert and oriented x3, non focal Mental Status Exam: normal affect Objective Data Vital Signs Vital Signs: Vital Signs - 24 hr 10/31/24 20:00 10/31/24 20:00 10/31/24 20:22 Temperature Pulse Rate 67 72 Respiratory Rate Blood Pressure Pulse Oximetry Oxygen Delivery Room Air 10/31/24 22:24 11/01/24 00:00 11/01/24 04:00 Temperature 97.0 F L Pulse Rate 66 64 77 Respiratory Rate 20 Blood Pressure 142/43 H Pulse Oximetry 99 Oxygen Delivery 11/01/24 06:00 11/01/24 09:10 11/01/24 09:12 Temperature 97.0 F L Pulse Rate 64 71 Respiratory Rate 20 Blood Pressure 144/83 H Pulse Oximetry 98 98 Oxygen Delivery Room Air 11/01/24 14:00 Temperature 96.7 F L Pulse Rate 70 Respiratory Rate 16 Blood Pressure 146/43 H Pulse Oximetry 99 Oxygen Delivery Intake/Output Intake/Output: Intake & Output 10/29/24 10/30/24 10/31/24 11/01/24 23:59 23:59 23:59 23:59 Intake Total 3475 4475 2130 880 Output Total 700 3700 1200 Balance 3478 9011 -1570 -320 Meds/Results Medications: Active Medications Generic Name Dose Route Start Last Admin Trade Name Freq PRN Reason Stop Dose Admin Acetaminophen 650 mg 10/29/24 03:06 10/30/24 15:48 Acetaminophen 325 Mg Tablet PO 650 mg Q4H PRN Administration Mild Pain (1-3) or Fever Apixaban 5 mg 10/31/24 21:00 11/01/24 09:12 Apixaban 5 Mg Tablet PO 5 mg Q12HR CHIP Administration Buspirone HCl 5 mg 10/29/24 09:00 11/01/24 09:13 Buspirone Hcl 5 Mg Tablet PO Not Given Q12HR CHIP Calcium Carbonate 200 mg 10/31/24 15:37 10/31/24 16:06 Calcium Carbonate (Tums) 500 Mg (200 Mg Elemental) PO 200 mg Q6H PRN Administration Indigestion Fluticasone Propionate 2 spray 10/29/24 10:42 Fluticasone Propionate 0.05% Na Spr 16 Gm Btl (*Bkc) NASAL DAILY PRN Congestion Isosorbide Mononitrate 60 mg 10/29/24 09:00 11/01/24 09:12 Isosorbide Mononitrate 60 Mg Tab.Er.24h PO 60 mg DAILY CHIP Administration Losartan Potassium 50 mg 10/29/24 18:00 10/31/24 17:36 Losartan Potassium 50 Mg Tablet PO 50 mg QPM CHIP Administration Losartan Potassium 25 mg 10/29/24 09:00 11/01/24 09:13 Losartan Potassium 25 Mg Tablet PO 25 mg DAILY CHIP Administration Metoprolol Tartrate 50 mg 10/29/24 09:00 11/01/24 09:12 Metoprolol Tartrate 50 Mg Tab PO 50 mg Q12HR CHIP Administration Ondansetron HCl 4 mg 10/29/24 03:06 Ondansetron Inj 4 Mg/2 Ml Vial IV PUSH Q4H PRN Nausea Pantoprazole Sodium 40 mg 11/01/24 09:00 11/01/24 09:13 Pantoprazole 40 Mg Tablet PO 40 mg QAM CHIP Administration Simvastatin 40 mg 10/29/24 18:00 10/31/24 17:35 Simvastatin 20 Mg Tablet PO 40 mg QPM CHIP Administration Radiology Results: ITS Impressions Chest X-Ray 10/28/24 21:59 IMPRESSION: No acute cardiopulmonary pathology. Head CT 10/29/24 08:42 IMPRESSION: 1. No acute intracranial process. 2. Nonaggressive appearing likely chronic benign lytic lesion involving the left side of the clivus and the left petrous apex without evident solid soft tissue component. Recommend 0further evaluation with pre and postcontrast MRI. Chest/Abdomen/Pelvis CT 10/29/24 17:38 IMPRESSION: CHEST: 1. No acute cardiopulmonary pathology. 2. Subcarinal calcified lymph nodes. ABDOMEN/PELVIS: 1. No evidence of appendicitis, diverticulitis or intestinal obstruction. 2. Hyperdense material in the descending and sigmoid colon. Blood cannot be excluded. Colonoscopy advised. 3. Small hyperdense area in the left kidney lower pole. Follow-up advised. 4. Small aneurysmal dilatation in the distal aorta measuring 2.5 x 2.4 cm. Brain MRI 10/31/24 08:29 IMPRESSION: 1. Nonenhancing cystic-appearing lytic lesion involving the left side of the clivus and the left petrous apex. Constellation of findings most consistent with either a neuroenteric cyst, arachnoid cyst, intraosseous extension of an epidermoid cyst or ecchordosis physaliphora. Cholesteatoma would be less likely given the lack of restricted diffusion and there is no evident enhancement to suggest chordoma or other malignant neoplasm. Labs Labs: Laboratory Results - last 24 hr 11/01/24 11/01/24 05:46 11:03 WBC 8.0 RBC 2.69 L Hgb 7.7 L Hct 25.5 L MCV 94.8 MCH 28.6 MCHC 30.2 L RDW 13.3 Plt Count 322 MPV 9.9 Immature Gran % (Auto) 0.9 H Neut % (Auto) 62.7 Lymph % (Auto) 24.7 [place] % (Auto) 8.8 H Eos % (Auto) 1.8 Baso % (Auto) 1.1 Lymph # (Auto) 1.97 [place] # (Auto) 0.7 H Eos # (Auto) 0.1 Baso # (Auto) 0.1 Abs Immat Gran (auto) 0.07 H Absolute Neuts (auto) 5.0 Absolute Nucleated RBC 0.040 H Nucleated RBC % 0.5 H Sodium 135 L Potassium 4.5 Chloride 106 Carbon Dioxide 25 Anion Gap 4 BUN 10 Creatinine 0.69 L Estim Creat Clear Calc 78 Estimated GFR > 60 Glucose 85 Calcium 9.1 Magnesium 2.0 Total Bilirubin 0.4 AST 24 ALT 14 Alkaline Phosphatase 84 Total Protein 7.0 Albumin 3.7 Stl Occult Blood (IFOB) Positive H Hospitalist MIPS Advance Care Plan I have confirmed that the patient's Advanced Care Plan is present, code status is documented, or surrogate decision maker is listed in patient medical record.: Yes Medication Reconciliation I have utilized all available resources to obtain, update and review the patients current medications (includes all prescriptions, OTC, herbals, cannabis, and nutritional supplements).: Yes
[2024-11-01] MEDS: LOSARTAN POTASSIUM 50 MG TABLET PO (17:30)
[2024-11-01] MEDS: SIMVASTATIN 20 MG TABLET 40 MG PO (17:30)
[2024-11-01] MEDS: CALCIUM CARBONATE (TUMS) 500 MG (200 MG ELEMENTAL) PO (20:48)
[2024-11-02] VITALS (12 sets, daily range): BP systolic 136–148; BP diastolic 44–56; PULSE 59–103; RESP 16–18; TEMP 35.8–36.4; O2SAT 98–99
[2024-11-02 05:55] LABS: Hematocrit 23.9 % (37.0-47.0); Hemoglobin 7.1 g/dL (12.0-15.0); Mean Corpuscular HGB Conc 29.7 g/dl (32-36); Mean Corpuscular Hemoglobin 28.6 pg (26-34); Mean Corpuscular Volume 96.4 fl (80-100); Mean Platelet Volume 9.4 fl (7.4-10.4); Platelet Count Result 291 k/mm3 (150-375); Red Blood Count 2.48 M/mm3 (4.2-5.4); Red Cell Distribution Width 13.5 % (11.5-14.5); White Blood Count 6.3 K/mm3 (4.5-10.0)
[2024-11-02 06:09] LABS: Alanine Aminotransferase 14 U/L (6-35); Albumin Level 3.3 g/dL (3.5-5.1); Alkaline Phosphatase 81 U/L (38-126); Anion Gap 2 mmol/L (4-12); Aspartate Amino Transferase 22 U/L (14-36); Bilirubin,Total 0.4 mg/dL (0.2-1.3); Blood Urea Nitrogen 11 mg/dL (7-17); Calcium 8.8 mg/dL (8.4-10.2); Carbon Dioxide 27 mmol/L (22-30); Chloride 107 mmol/L (98-107); Estimated CRCL calculation 70 ml/min; Estimated Glomerular Filt Rate > 60; Glucose 87 mg/dL (65-110); Potassium 4.6 mmol/L (3.4-5.0); Sodium 136 mmol/L (137-145)
[2024-11-02] MEDS: METOPROLOL TARTRATE 50 MG TAB PO ×2 (08:50→21:05)
[2024-11-02] MEDS: PANTOPRAZOLE 40 MG TABLET PO (08:50)
[2024-11-02] MEDS: LOSARTAN POTASSIUM 25 MG TABLET PO (08:51)
[2024-11-02] MEDS: ISOSORBIDE MONONITRATE 60 MG TAB.ER.24H PO (08:51)
--- NOTE | 2024-11-02 13:11 | WPDNEURCNPN ---
Assessment and Plan Assessment and plan (1) Hypertension: Code(s): I10 - Essential (primary) hypertension Status: Acute (2) History of CAD (coronary artery disease): Code(s): Z86.79 - Personal history of other diseases of the circulatory system Status: Acute (3) Acute hyponatremia: Code(s): E87.1 - Hypo-osmolality and hyponatremia Status: Acute (4) Iron deficiency anemia: Code(s): D50.9 - Iron deficiency anemia, unspecified Status: Acute (5) Coronary artery disease: Code(s): I25.10 - Atherosclerotic heart disease of [place] coronary artery without angina pectoris Status: Acute (6) Lytic bone lesions on xray: Code(s): M89.8X9 - Other specified disorders of bone, unspecified site Status: Acute Plan 1. 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 2. Ongoing diagnosis of atrial fibrillation 3. Is status post coronary stenting 4. Hypertension 5. Metabolic dysfunction with hyponatremia and ongoing complaint of dizziness. Patient can be carried out on Eliquis 5mg twice a day, simvastatin 40mg daily, with specific instruction to follow with [facility] Consult date: 11/02/24 HPI: Liana Hodges is a 78 year old female Admitted to the hospital through the emergency room for the complaints of increasing generalized weakness in addition to the history of recent bloody stools and EGD and colonoscopy about 2 months ago which was reportedly normal ,she has history of ongoing coronary artery disease for which she has had stents placed in, hypertension, atrial fibrillation, and ongoing anxiety. On initial eval in the emergency room she was found to be with blood pressure of 204/102 and hemoglobin of only 7.[address] scan of the head was abnormal a nonaggressive chronic lytic petrous clivus lesion. As mentioned before she has had 5 stents in the coronary ,, she has had TIA in the past, she is never a smoker, never alcohol intaker , and her medication at the time of admission included apixaban 5mg twice a day, isosorbide 30mg each 2 tablets daily, omeprazole 20mg daily, losartan 50mg daily, simvastatin 40mg daily, spironolactone 12.5mg daily, and losartan 25mg daily,she is allergic to multiple medication as outlined, on initial eval in the emergency room her vital signs were normal except blood pressure was slightly elevated , her CBC was abnormal with hemoglobin 7.2 WBC is 10.4, her sodium was 121 chloride 88 potassium 4.4, UA was normal, she was admitted with the diagnosis of acute hyponatremia with hypo-osmolality and anemia in addition to the history of other comorbid conditions as mentioned above subsequently she had the MRI of the brain which documented nonenhancing cystic appearing lytic lesion involving the left-sided clivus and left petrous apex bone raising the possibility of neuro enteric cyst, arachnoid cyst, and intra or CS extension of an epidermoid cyst and cholesteatoma. CT scan of the chest and abdomen and pelvis revealed small aneurysmal dilatation in the distal aorta measuring 2.5x2.4cm and a small hyperdense area in the left kidney lower pole for which follow-up suggested. Since admission her hemoglobin has come up only 7.1 . Review of Systems Review of Systems: All systems reviewed & are unremarkable except as noted in HPI and below PMFSH Past Medical History Medical History Atrial fibrillation Colon polyp GERD (gastroesophageal reflux disease) Surgical History Surgical History History of cardiac cath 5 stents in heart Family History Family History Mother TIA (transient ischemic attack) Arterial atherosclerosis Father Malignant neoplasm of prostate Social History Social History Smoking status: Never smoker Alcohol intake: never Substance use: never Substance use type: does not use Do You Feel Safe in your Home?: Yes Lack of Transportation: No Lack of Food: Never True Current Housing: I Have Housing Concerned About Future Housing: No Difficulty Paying Gas/Electric Bills: No Difficulty Paying for Meds: No Currently Unemployed: YES Education: Associate Degree Difficulty w/ Childcare or Family Care: No Living arrangements: with family Spiritual care concerns: No Meds Home Medications and Allergies Home Medications ?Medication ?Instructions ?Recorded ?Confirmed ?Type Tums 500 1,000 mg PO DAILY 02/01/24 10/29/24 History apixaban 5 mg tablet (Eliquis) 5 mg PO BID 02/01/24 10/29/24 History fluticasone propionate 50 2 mcg intranasal DAILY PRN 02/01/24 10/29/24 History mcg/actuation nasal Congestion spray,suspension isosorbide mononitrate 30 mg 60 mg PO DAILY 02/01/24 10/29/24 History tablet,extended release 24 hr loratadine 10 mg tablet 10 mg PO DAILY PRN Allergy Symptoms 02/01/24 10/29/24 History metoprolol tartrate 50 mg tablet 50 mg PO BID 02/01/24 10/29/24 History nitroglycerin 0.4 mg sublingual 0.4 mg sublingual PRN PRN Angina 02/01/24 10/29/24 History tablet omeprazole 20 mg capsule,delayed 20 mg PO DAILY 02/01/24 10/29/24 History release losartan 50 mg tablet 50 mg PO DAILY 10/12/24 10/29/24 History simvastatin 20 mg tablet 40 mg PO QPM 10/12/24 10/29/24 History spironolactone 25 mg tablet 12.5 mg PO DAILY 10/12/24 10/29/24 History losartan 25 mg tablet 25 mg PO DAILY 10/29/24 10/29/24 History Allergies Allergy/AdvReac Type Severity Reaction Status Date / Time adhesive tape Allergy Severe Swelling Verified 10/29/24 06:19 amlodipine Allergy Severe Swelling Verified 10/29/24 06:19 LOWER EXT. Iodinated Contrast Media Allergy Severe HEART Verified 10/29/24 06:19 ARRYTHMIA morphine Allergy Severe Dizziness Verified 10/29/24 06:19 codeine Allergy Intermediate Hallucinati Verified 10/29/24 06:19 ng latex Allergy Intermediate Itching Verified 10/29/24 06:19 Penicillins Allergy Intermediate Hives Verified 10/29/24 06:19 prednisone Allergy Intermediate HEART Verified 10/29/24 06:19 PALPITATIONS hydromorphone AdvReac Intermediate Nausea and Verified 10/29/24 06:19 Vomiting Sulfa (Sulfonamide AdvReac Intermediate Nausea and Verified 10/29/24 06:19 Antibiotics) Vomiting Vital Signs Vital Signs - 24 hr 11/01/24 14:00 11/01/24 16:00 11/01/24 20:00 Temperature 35.9 C L Pulse Rate 70 64 61 Respiratory Rate 16 16 Blood Pressure 146/43 H Pulse Oximetry 99 99 Oxygen Delivery Room Air 11/01/24 20:04 11/01/24 20:43 11/01/24 20:45 Temperature 36.9 C Pulse Rate 67 62 61 Respiratory Rate 16 Blood Pressure 128/46 L Pulse Oximetry 99 Oxygen Delivery 11/02/24 00:00 11/02/24 04:00 11/02/24 05:31 Temperature 36.1 C L Pulse Rate 59 L 64 67 Respiratory Rate 16 Blood Pressure 145/49 H Pulse Oximetry 98 Oxygen Delivery 11/02/24 08:00 11/02/24 08:50 Temperature Pulse Rate 76 Respiratory Rate Blood Pressure Pulse Oximetry Oxygen Delivery Room Air Exam Narrative: revealed her to be awake alert cooperative in no obvious acute distress, normocephalic with no cranial bruit, ear nose throat examination normal, neck supple with no cervical bruit no thyromegaly no lymphadenopathy, heart regular with no murmur, lungs clear to auscultation, abdomen soft, neurological examination revealed her to be awake alert oriented x3 his speech not dysphasic not dysarthric not dysphonic, pupils round regular feels the vision full extraocular movements full face symmetrical tongue midline her examination revealed normal strength in upper and lower extremities with no evidence of proximal or distal weakness deep tendon reflexes symmetrical Plantar responses downgoing. Results Labs 11/02/24 05:44 11/02/24 05:44 Labs: Short CBC 11/02/24 Range/Units 05:44 WBC 6.3 (4.5-10.0) K/mm3 Hgb 7.1 L (12.0-15.0) g/dL Hct 23.9 L (37.0-47.0) % Plt Count 291 (150-375) k/mm3 [facility] 11/02/24 05:44 Sodium 136 L Potassium 4.6 Chloride 107 Carbon Dioxide 27 BUN 11 Creatinine 0.77 Glucose 87 Calcium 8.8 Liver Function 11/02/24 Range/Units 05:44 Total Bilirubin 0.4 (0.2-1.3) mg/dL AST 22 (14-36) U/L ALT 14 (6-35) U/L Alkaline Phosphatase 81 (38-126) U/L Albumin 3.3 L (3.5-5.1) g/dL
[2024-11-02 14:20] LABS: Hematocrit 24.1 % (37.0-47.0); Hemoglobin 7.3 g/dL (12.0-15.0)
--- NOTE | 2024-11-02 17:09 | P.PNIM_ITS ---
Progress Note: A&P Assessment and Plan (1) Acute hyponatremia: Code(s): E87.1 - Hypo-osmolality and hyponatremia Status: Acute Plan Brain cyst History of renal cyst Was diagnosed due to high blood pressure Serial monitoring of renal cyst Neurology consult, advised to follow-up with neuro surgery as outpatient Hyponatremia, resolved Likely from HCTZ she was taken outpatient Na 121 on admission, Na 136 s/p IVF HCTZ on hold Anemia Hb 7.3 s/p 1 unit pRBC ferritin 6.53 Venofer 1000/1000 monitor h and H GI reports no acute intervention during this hospitalization GI following CAD s/p stents Continue home meds Afib Eliquis on Hold due to possible GI leed FOBT pending HTN BP elevated COntinue home meds Anxiety start Buspirone DVT prophylaxis on SCDs Full code Subjective Date/time seen: 11/02/24 17:09 Interval history: Patient will have tagged RBC scan tomorrow. Possible discharge tomorrow. Discussed with neurology who recommended to patient to follow up closely with Neurosurgery as outpatient Review of Systems Review of Systems: ALL other systems were reviewed and negative except as noted in the HPI above Exam Narrative: General: alert and comfortable Eyes: EOMI, PERRLA ENNT External ears normal, Neck is supple, no masses, Respiratory systems: Clear to auscultation Cardiovascular S1, S2, normal rhythm, no murmur, rub, or gallop; no thrill or palpable murmurs on palpation. Gastrointestinal: soft, non-tender, and non-distended abdomen with no masses; BS present Skin: no rash, lesions, ulcerations, subcutaneous nodules or induration Musculoskeletal: no abnormality and no tenderness, normal ROM Neurologic: Alert and oriented x3, non focal Mental Status Exam: normal affect Objective Data Vital Signs Vital Signs: Vital Signs - 24 hr 11/01/24 20:00 11/01/24 20:04 11/01/24 20:43 Temperature 98.4 F Pulse Rate 61 67 62 Respiratory Rate 16 16 Blood Pressure 128/46 L Pulse Oximetry 99 99 Oxygen Delivery Room Air 11/01/24 20:45 11/02/24 00:00 11/02/24 04:00 Temperature Pulse Rate 61 59 L 64 Respiratory Rate Blood Pressure Pulse Oximetry Oxygen Delivery 11/02/24 05:31 11/02/24 08:00 11/02/24 08:50 Temperature 96.9 F L Pulse Rate 67 76 Respiratory Rate 16 Blood Pressure 145/49 H Pulse Oximetry 98 Oxygen Delivery Room Air 11/02/24 14:00 11/02/24 14:35 Temperature 97.6 F Pulse Rate 78 Respiratory Rate 18 Blood Pressure 136/56 L Pulse Oximetry 99 98 Oxygen Delivery Room Air Intake/Output Intake/Output: Intake & Output 10/30/24 10/31/24 11/01/24 11/02/24 23:59 23:59 23:59 23:59 Intake Total 4475 2130 2020 1700 Output Total 700 3700 1200 Balance 3775 -6853 532 7904 Meds/Results Medications: Active Medications Generic Name Dose Route Start Last Admin Trade Name Freq PRN Reason Stop Dose Admin Acetaminophen 650 mg 10/29/24 03:06 10/30/24 15:48 Acetaminophen 325 Mg Tablet PO 650 mg Q4H PRN Administration Mild Pain (1-3) or Fever Apixaban 5 mg 10/31/24 21:00 11/02/24 13:53 Apixaban 5 Mg Tablet PO Not Given Q12HR CHIP Buspirone HCl 5 mg 10/29/24 09:00 11/02/24 08:51 Buspirone Hcl 5 Mg Tablet PO Not Given Q12HR CHIP Calcium Carbonate 200 mg 10/31/24 15:37 11/01/24 20:48 Calcium Carbonate (Tums) 500 Mg (200 Mg Elemental) PO 200 mg Q6H PRN Administration Indigestion Fluticasone Propionate 2 spray 10/29/24 10:42 Fluticasone Propionate 0.05% Na Spr 16 Gm Btl (*Bkc) NASAL DAILY PRN Congestion Isosorbide Mononitrate 60 mg 10/29/24 09:00 11/02/24 08:51 Isosorbide Mononitrate 60 Mg Tab.Er.24h PO 60 mg DAILY CHIP Administration Losartan Potassium 50 mg 10/29/24 18:00 11/01/24 17:30 Losartan Potassium 50 Mg Tablet PO 50 mg QPM CHIP Administration Losartan Potassium 25 mg 10/29/24 09:00 11/02/24 08:51 Losartan Potassium 25 Mg Tablet PO 25 mg DAILY CHIP Administration Metoprolol Tartrate 50 mg 10/29/24 09:00 11/02/24 08:50 Metoprolol Tartrate 50 Mg Tab PO 50 mg Q12HR CHIP Administration Ondansetron HCl 4 mg 10/29/24 03:06 Ondansetron Inj 4 Mg/2 Ml Vial IV PUSH Q4H PRN Nausea Pantoprazole Sodium 40 mg 11/01/24 09:00 11/02/24 08:50 Pantoprazole 40 Mg Tablet PO 40 mg QAM CHIP Administration Simvastatin 40 mg 10/29/24 18:00 11/01/24 17:30 Simvastatin 20 Mg Tablet PO 40 mg QPM CHIP Administration Radiology Results: ITS Impressions Chest X-Ray 10/28/24 21:59 IMPRESSION: No acute cardiopulmonary pathology. Head CT 10/29/24 08:42 IMPRESSION: 1. No acute intracranial process. 2. Nonaggressive appearing likely chronic benign lytic lesion involving the left side of the clivus and the left petrous apex without evident solid soft tissue component. Recommend 0further evaluation with pre and postcontrast MRI. Chest/Abdomen/Pelvis CT 10/29/24 17:38 IMPRESSION: CHEST: 1. No acute cardiopulmonary pathology. 2. Subcarinal calcified lymph nodes. ABDOMEN/PELVIS: 1. No evidence of appendicitis, diverticulitis or intestinal obstruction. 2. Hyperdense material in the descending and sigmoid colon. Blood cannot be excluded. Colonoscopy advised. 3. Small hyperdense area in the left kidney lower pole. Follow-up advised. 4. Small aneurysmal dilatation in the distal aorta measuring 2.5 x 2.4 cm. Brain MRI 10/31/24 08:29 IMPRESSION: 1. Nonenhancing cystic-appearing lytic lesion involving the left side of the clivus and the left petrous apex. Constellation of findings most consistent with either a neuroenteric cyst, arachnoid cyst, intraosseous extension of an epidermoid cyst or ecchordosis physaliphora. Cholesteatoma would be less likely given the lack of restricted diffusion and there is no evident enhancement to suggest chordoma or other malignant neoplasm. Labs Labs: Laboratory Results - last 24 hr 11/02/24 11/02/24 05:44 14:15 WBC 6.3 RBC 2.48 L Hgb 7.1 L 7.3 L Hct 23.9 L 24.1 L MCV 96.4 MCH 28.6 MCHC 29.7 L RDW 13.5 Plt Count 291 MPV 9.4 Sodium 136 L Potassium 4.6 Chloride 107 Carbon Dioxide 27 Anion Gap 2 L BUN 11 Creatinine 0.77 Estim Creat Clear Calc 70 Estimated GFR > 60 Glucose 87 Calcium 8.8 Total Bilirubin 0.4 AST 22 ALT 14 Alkaline Phosphatase 81 Total Protein 6.0 L Albumin 3.3 L Hospitalist [facility] Advance Care Plan I have confirmed that the patient's Advanced Care Plan is present, code status is documented, or surrogate decision maker is listed in patient medical record.: Yes Medication Reconciliation I have utilized all available resources to obtain, update and review the patients current medications (includes all prescriptions, OTC, herbals, cannabis, and nutritional supplements).: Yes
[2024-11-02] MEDS: SIMVASTATIN 20 MG TABLET 40 MG PO (17:30)
[2024-11-02] MEDS: LOSARTAN POTASSIUM 50 MG TABLET PO (17:30)
[2024-11-03] VITALS (12 sets, daily range): BP systolic 146–163; BP diastolic 39–55; PULSE 58–79; RESP 16–20; TEMP 36.1–36.8; O2SAT 96–98
[2024-11-03 05:57] LABS: Hemoglobin 7.1 g/dL (12.0-15.0); Mean Corpuscular HGB Conc 29.6 g/dl (32-36); Mean Corpuscular Hemoglobin 28.7 pg (26-34); Mean Corpuscular Volume 97.2 fl (80-100); Mean Platelet Volume 10.1 fl (7.4-10.4); Platelet Count Result 287 k/mm3 (150-375); Red Blood Count 2.47 M/mm3 (4.2-5.4); Red Cell Distribution Width 14.2 % (11.5-14.5); White Blood Count 6.3 K/mm3 (4.5-10.0)
[2024-11-03 06:06] LABS: Alanine Aminotransferase 12 U/L (6-35); Albumin Level 3.4 g/dL (3.5-5.1); Alkaline Phosphatase 81 U/L (38-126); Anion Gap 3 mmol/L (4-12); Aspartate Amino Transferase 20 U/L (14-36); Bilirubin,Total 0.4 mg/dL (0.2-1.3); Blood Urea Nitrogen 12 mg/dL (7-17); Carbon Dioxide 27 mmol/L (22-30); Chloride 105 mmol/L (98-107); Estimated CRCL calculation 70 ml/min; Estimated Glomerular Filt Rate > 60; Glucose 89 mg/dL (65-110); Potassium 4.2 mmol/L (3.4-5.0); Sodium 135 mmol/L (137-145)
[2024-11-03] MEDS: METOPROLOL TARTRATE 50 MG TAB PO ×2 (08:36→20:33)
[2024-11-03] MEDS: PANTOPRAZOLE 40 MG TABLET PO (08:36)
[2024-11-03] MEDS: ISOSORBIDE MONONITRATE 60 MG TAB.ER.24H PO (08:36)
[2024-11-03] MEDS: LOSARTAN POTASSIUM 25 MG TABLET PO (08:36)
[2024-11-03 11:59] LABS: Chloride Rand Ur 32 mmol/L (32-290); Chloride/Creatinine Rand Ur 60 (38-318); Creatinine Random Urine 53 mg/dL (20-275)
[2024-11-03] MEDS: SIMVASTATIN 20 MG TABLET 40 MG PO (17:17)
[2024-11-03] MEDS: LOSARTAN POTASSIUM 50 MG TABLET PO (17:17)
[2024-11-03] MEDS: CALCIUM CARBONATE (TUMS) 500 MG (200 MG ELEMENTAL) PO (17:19)
--- NOTE | 2024-11-03 17:56 | PM.IMPN ---
Progress Note: A&P Assessment and Plan (1) Acute hyponatremia: Code(s): E87.1 - Hypo-osmolality and hyponatremia Status: Acute Plan Brain cyst History of renal cyst Was diagnosed due to high blood pressure Serial monitoring of renal cyst Neurology consult, advised to follow-up with neuro surgery as outpatient Hyponatremia, resolved Likely from HCTZ she was taken outpatient Na 121 on admission, Na 136 s/p IVF HCTZ on hold Anemia Hb 7.3 s/p 1 unit pRBC ferritin 6.53 Venofer 1000/1000 monitor h and H GI reports no acute intervention during this hospitalization GI following CAD s/p stents Continue home meds Afib Eliquis on Hold due to possible GI leed FOBT pending HTN BP elevated COntinue home meds Anxiety start Buspirone DVT prophylaxis on SCDs Full code Subjective Date/time seen: 11/03/24 17:56 Interval history: Patient is feeling tired. Patient hemoglobin is 7.1. No evidence of bleeding from tagged RBC scan . As mentioned previous patient recently had EGD and colonoscopy which shows no evidence of bleeding. Currently Eliquis on hold. Patient reports previously she was on aspirin and Plavix and then later switched to Brilinta and then later her cardiology switched to Eliquis. Patient has excellent cardiac disease with 5 stents in the heart. Patient currently agrees to holding Eliquis but wants to talk to Cardiology. Cardiology is consulted and appreciate the recommendation in regards to anticoagulation. In regards to hemoglobin 7.1 consulted Heme-Onc and appreciate the recommendation. Vitamin B12 and folate is normal. Review of Systems Review of Systems: ALL other systems were reviewed and negative except as noted in the HPI above Exam Narrative: General: alert and comfortable Eyes: EOMI, PERRLA ENNT External ears normal, Neck is supple, no masses, Respiratory systems: Clear to auscultation Cardiovascular S1, S2, normal rhythm, no murmur, rub, or gallop; no thrill or palpable murmurs on palpation. Gastrointestinal: soft, non-tender, and non-distended abdomen with no masses; BS present Skin: no rash, lesions, ulcerations, subcutaneous nodules or induration Musculoskeletal: no abnormality and no tenderness, normal ROM Neurologic: Alert and oriented x3, non focal Mental Status Exam: normal affect Objective Data Vital Signs Vital Signs: Vital Signs - 24 hr 11/02/24 20:00 11/02/24 21:05 11/02/24 22:00 Temperature 96.5 F L Pulse Rate 66 61 64 Respiratory Rate 16 Blood Pressure 148/44 H Pulse Oximetry 99 Oxygen Delivery 11/03/24 00:07 11/03/24 04:48 11/03/24 05:17 Temperature 96.9 F L Pulse Rate 66 58 L 61 Respiratory Rate 16 Blood Pressure 163/39 H Pulse Oximetry 97 Oxygen Delivery 11/03/24 08:00 11/03/24 08:00 11/03/24 08:36 Temperature Pulse Rate 61 59 L Respiratory Rate Blood Pressure Pulse Oximetry Oxygen Delivery Room Air 11/03/24 12:00 11/03/24 14:00 11/03/24 16:00 Temperature 97.2 F L Pulse Rate 79 62 68 Respiratory Rate 16 Blood Pressure 146/52 H Pulse Oximetry 97 Oxygen Delivery Intake/Output Intake/Output: Intake & Output 10/31/24 11/01/24 11/02/24 11/03/24 23:59 23:59 23:59 23:59 Intake Total 2130 2020 2560 1460 Output Total 3700 1200 Balance -7647 257 2585 1460 Meds/Results Medications: Active Medications Generic Name Dose Route Start Last Admin Trade Name Freq PRN Reason Stop Dose Admin Acetaminophen 650 mg 10/29/24 03:06 10/30/24 15:48 Acetaminophen 325 Mg Tablet PO 650 mg Q4H PRN Administration Mild Pain (1-3) or Fever Apixaban 5 mg 10/31/24 21:00 11/02/24 13:53 Apixaban 5 Mg Tablet PO Not Given Q12HR CHIP Buspirone HCl 5 mg 10/29/24 09:00 11/03/24 08:36 Buspirone Hcl 5 Mg Tablet PO Not Given Q12HR CHIP Calcium Carbonate 200 mg 10/31/24 15:37 11/03/24 17:19 Calcium Carbonate (Tums) 500 Mg (200 Mg Elemental) PO 200 mg Q6H PRN Administration Indigestion Fluticasone Propionate 2 spray 10/29/24 10:42 Fluticasone Propionate 0.05% Na Spr 16 Gm Btl (*Bkc) NASAL DAILY PRN Congestion Sodium Chloride 250 mls @ 30 mls/hr 11/03/24 13:41 Normal Saline Iv IV CONT 11/03/24 22:00 .Q8H20M STA Isosorbide Mononitrate 60 mg 10/29/24 09:00 11/03/24 08:36 Isosorbide Mononitrate 60 Mg Tab.Er.24h PO 60 mg DAILY CHIP Administration Losartan Potassium 50 mg 10/29/24 18:00 11/03/24 17:17 Losartan Potassium 50 Mg Tablet PO 50 mg QPM CHIP Administration Losartan Potassium 25 mg 10/29/24 09:00 11/03/24 08:36 Losartan Potassium 25 Mg Tablet PO 25 mg DAILY CHIP Administration Metoprolol Tartrate 50 mg 10/29/24 09:00 11/03/24 08:36 Metoprolol Tartrate 50 Mg Tab PO 50 mg Q12HR CHIP Administration Ondansetron HCl 4 mg 10/29/24 03:06 Ondansetron Inj 4 Mg/2 Ml Vial IV PUSH Q4H PRN Nausea Pantoprazole Sodium 40 mg 11/01/24 09:00 11/03/24 08:36 Pantoprazole 40 Mg Tablet PO 40 mg QAM CHIP Administration Simvastatin 40 mg 10/29/24 18:00 11/03/24 17:17 Simvastatin 20 Mg Tablet PO 40 mg QPM CHIP Administration Radiology Results: ITS Impressions Chest X-Ray 10/28/24 21:59 IMPRESSION: No acute cardiopulmonary pathology. Head CT 10/29/24 08:42 IMPRESSION: 1. No acute intracranial process. 2. Nonaggressive appearing likely chronic benign lytic lesion involving the left side of the clivus and the left petrous apex without evident solid soft tissue component. Recommend 0further evaluation with pre and postcontrast MRI. Chest/Abdomen/Pelvis CT 10/29/24 17:38 IMPRESSION: CHEST: 1. No acute cardiopulmonary pathology. 2. Subcarinal calcified lymph nodes. ABDOMEN/PELVIS: 1. No evidence of appendicitis, diverticulitis or intestinal obstruction. 2. Hyperdense material in the descending and sigmoid colon. Blood cannot be excluded. Colonoscopy advised. 3. Small hyperdense area in the left kidney lower pole. Follow-up advised. 4. Small aneurysmal dilatation in the distal aorta measuring 2.5 x 2.4 cm. Brain MRI 10/31/24 08:29 IMPRESSION: 1. Nonenhancing cystic-appearing lytic lesion involving the left side of the clivus and the left petrous apex. Constellation of findings most consistent with either a neuroenteric cyst, arachnoid cyst, intraosseous extension of an epidermoid cyst or ecchordosis physaliphora. Cholesteatoma would be less likely given the lack of restricted diffusion and there is no evident enhancement to suggest chordoma or other malignant neoplasm. GI Bleed Scan Nuclear Medicine 11/03/24 12:24 IMPRESSION: 1. No scintigraphic evidence for active gastrointestinal bleeding. Labs Labs: Laboratory Results - last 24 hr 10/28/24 11/03/24 11/03/24 22:49 05:33 05:36 WBC 6.3 RBC 2.47 L Hgb 7.1 L Hct 24.0 L MCV 97.2 MCH 28.7 MCHC 29.6 L RDW 14.2 Plt Count 287 MPV 10.1 Sodium 135 L Potassium 4.2 Chloride 105 Carbon Dioxide 27 Anion Gap 3 L BUN 12 Creatinine 0.77 Estim Creat Clear Calc 70 Estimated GFR > 60 Glucose 89 Calcium 9.0 Total Bilirubin 0.4 AST 20 ALT 12 Alkaline Phosphatase 81 Total Protein 6.0 L Albumin 3.4 L Vitamin B12 645.0 Folate 13.0 Ur Random Creatinine 53 Ur Random Chloride 32 U Random Chloride/Creat 60 Blood Type Antibody Screen Crossmatch 11/03/24 14:41 WBC RBC Hgb Hct MCV MCH MCHC RDW Plt Count MPV Sodium Potassium Chloride Carbon Dioxide Anion Gap BUN Creatinine Estim Creat Clear Calc Estimated GFR Glucose Calcium Total Bilirubin AST ALT Alkaline Phosphatase Total Protein Albumin Vitamin B12 Folate Ur Random Creatinine Ur Random Chloride U Random Chloride/Creat Blood Type O Positive Antibody Screen Negative Crossmatch See Detail Hospitalist [facility] Advance Care Plan I have confirmed that the patient's Advanced Care Plan is present, code status is documented, or surrogate decision maker is listed in patient medical record.: Yes Medication Reconciliation I have utilized all available resources to obtain, update and review the patients current medications (includes all prescriptions, OTC, herbals, cannabis, and nutritional supplements).: Yes
--- NOTE | 2024-11-03 18:33 | P.CONONC_ITS ---
Assessment and Plan Assessment and plan (1) Iron deficiency anemia: Code(s): D50.9 - Iron deficiency anemia, unspecified Status: Acute Plan Normocytic anemia. Patient has a history of coronary artery disease status post stent placement along with atrial fibrillation. She was on Eliquis along with aspirin. Aspirin was discontinued. She came into the hospital with generalized weakness. Labs showed iron deficiency ferritin of 6.5, iron saturation of 8% iron 32. With normal vitamin B12 level and kidney function. EGD from October 31 showed normal finding. Colonoscopy from February 2024 showed internal hemorrhoids and diverticulosis. Bleeding scan was performed that showed no evidence of bleeding. Etiology for iron deficiency remains unclear. She received iron infusion and blood transfusion with initial improvement in hemoglobin now dropped to 7.1 again. She remains asymptomatic without any melena and hematochezia. Brain MRI showed nonenhancing lytic lesion in the left side of the clivus and left petrous apex consistent with cyst. I will suggest holding the Eliquis until the source for iron deficiency anemia is found. Patient should consult with Cardiology. We will give her another round of iron infusion and continue oral iron 65 mg twice a day with vitamin-C 500 mg daily as an outpatient. I suppose she needs to have capsule enteroscopy as well to complete the GI evaluation. I will also check soluble transferrin receptor and serum protein electrophoresis with immunofixation. If she remains anemic after correction of iron deficiency then will perform bone marrow biopsy that can be done as an outpatient. She will follow-up with me in as an outpatient. HPI Data of Consult Date/Time: 11/03/24 18:33 Requesting Physician: Yohan Go MD Primary Care Provider: Susana Figueroa, [employer]GER FEEDER Consult Narrative Narrative: Liana Hodges is a 78 year old female with history of atrial fibrillation, coronary artery disease status post stent placement, anxiety and hemorrhoid came into the hospital with generalized weakness. Labs reviewed hyponatremia. Patient was on Eliquis for atrial fibrillation. Labs on admission showed hemoglobin of 6.6. Creatinine was normal at 0.7, iron was 32 and iron saturation was 8%. EGD done on October 31 showed normal findings. Colonoscopy from February 2024 showed internal hemorrhoid and diverticulosis without bleeding. She denies being a vegetarian. Denies any previous stomach surgeries. CT scan chest abdomen and pelvis was performed that showed no evidence of diverticulitis status and intestinal obstruction. There was hypodense material in the descending sigmoid colon. Bleeding scan was performed that showed no evidence of active bleeding. Eliquis was put on hold. Patient received iron infusion and blood transfusion. Hemoglobin initially improved to 7.7 now dropped again to 7.1. She denies any melena and hematochezia. Complain of mild tiredness and fatigue. Review of Systems 2 Review of Systems: Twelve point review system was reviewed [facility] Past Medical History Medical History Atrial fibrillation Colon polyp GERD (gastroesophageal reflux disease) Surgical History Surgical History History of cardiac cath 5 stents in heart Family History Family History Mother TIA (transient ischemic attack) Arterial atherosclerosis Father Malignant neoplasm of prostate Social History Social History Smoking status: Never smoker Alcohol intake: never Substance use: never Substance use type: does not use Do You Feel Safe in your Home?: Yes Lack of Transportation: No Lack of Food: Never True Current Housing: I Have Housing Concerned About Future Housing: No Difficulty Paying Gas/Electric Bills: No Difficulty Paying for Meds: No Currently Unemployed: YES Education: Associate Degree Difficulty w/ Childcare or Family Care: No Living arrangements: with family Spiritual care concerns: No Meds Home Medications and Allergies Home Medications ?Medication ?Instructions ?Recorded ?Confirmed ?Type Tums 500 1,000 mg PO DAILY 02/01/24 10/29/24 History apixaban 5 mg tablet (Eliquis) 5 mg PO BID 02/01/24 10/29/24 History fluticasone propionate 50 2 mcg intranasal DAILY PRN 02/01/24 10/29/24 History mcg/actuation nasal Congestion spray,suspension isosorbide mononitrate 30 mg 60 mg PO DAILY 02/01/24 10/29/24 History tablet,extended release 24 hr loratadine 10 mg tablet 10 mg PO DAILY PRN Allergy Symptoms 02/01/24 10/29/24 History metoprolol tartrate 50 mg tablet 50 mg PO BID 02/01/24 10/29/24 History nitroglycerin 0.4 mg sublingual 0.4 mg sublingual PRN PRN Angina 02/01/24 10/29/24 History tablet omeprazole 20 mg capsule,delayed 20 mg PO DAILY 02/01/24 10/29/24 History release losartan 50 mg tablet 50 mg PO DAILY 10/12/24 10/29/24 History simvastatin 20 mg tablet 40 mg PO QPM 10/12/24 10/29/24 History spironolactone 25 mg tablet 12.5 mg PO DAILY 10/12/24 10/29/24 History losartan 25 mg tablet 25 mg PO DAILY 10/29/24 10/29/24 History Allergies Allergy/AdvReac Type Severity Reaction Status Date / Time adhesive tape Allergy Severe Swelling Verified 10/29/24 06:19 amlodipine Allergy Severe Swelling Verified 10/29/24 06:19 LOWER EXT. Iodinated Contrast Media Allergy Severe HEART Verified 10/29/24 06:19 ARRYTHMIA morphine Allergy Severe Dizziness Verified 10/29/24 06:19 codeine Allergy Intermediate Hallucinati Verified 10/29/24 06:19 ng latex Allergy Intermediate Itching Verified 10/29/24 06:19 Penicillins Allergy Intermediate Hives Verified 10/29/24 06:19 prednisone Allergy Intermediate HEART Verified 10/29/24 06:19 PALPITATIONS hydromorphone AdvReac Intermediate Nausea and Verified 10/29/24 06:19 Vomiting Sulfa (Sulfonamide AdvReac Intermediate Nausea and Verified 10/29/24 06:19 Antibiotics) Vomiting Vital Signs Vital Signs - 24 hr 11/02/24 20:00 11/02/24 21:05 11/02/24 22:00 Temperature 35.8 C L Pulse Rate 66 61 64 Respiratory Rate 16 Blood Pressure 148/44 H Pulse Oximetry 99 Oxygen Delivery 11/03/24 00:07 11/03/24 04:48 11/03/24 05:17 Temperature 36.1 C L Pulse Rate 66 58 L 61 Respiratory Rate 16 Blood Pressure 163/39 H Pulse Oximetry 97 Oxygen Delivery 11/03/24 08:00 11/03/24 08:00 11/03/24 08:36 Temperature Pulse Rate 61 59 L Respiratory Rate Blood Pressure Pulse Oximetry Oxygen Delivery Room Air 11/03/24 12:00 11/03/24 14:00 11/03/24 16:00 Temperature 36.2 C L Pulse Rate 79 62 68 Respiratory Rate 16 Blood Pressure 146/52 H Pulse Oximetry 97 Oxygen Delivery Exam 2 Narrative: Lungs are clear to auscultation bilaterally Cardiovascular regular rate rhythm no murmurs Abdomen soft nontender nondistended Extremities no edema Results Labs 11/03/24 05:36 11/03/24 05:36 Labs: Short CBC 11/03/24 Range/Units 05:36 WBC 6.3 (4.5-10.0) K/mm3 Hgb 7.1 L (12.0-15.0) g/dL Hct 24.0 L (37.0-47.0) % Plt Count 287 (150-375) k/mm3 BMP 11/03/24 05:36 Sodium 135 L Potassium 4.2 Chloride 105 Carbon Dioxide 27 BUN 12 Creatinine 0.77 Glucose 89 Calcium 9.0 Liver Function 11/03/24 Range/Units 05:36 Total Bilirubin 0.4 (0.2-1.3) mg/dL AST 20 (14-36) U/L ALT 12 (6-35) U/L Alkaline Phosphatase 81 (38-126) U/L Albumin 3.4 L (3.5-5.1) g/dL
[2024-11-03] MEDS: IRON SUCROSE COMPLEX 400 MG, IRON SUCROSE COMPLEX 100 MG in SODIUM CHLORIDE 0.9% IV 250 ML 78.57 MG IVPB (19:37)
[2024-11-04 00:07] VITALS: PULSE 60
[2024-11-04 04:06] VITALS: PULSE 69
[2024-11-04 04:35] VITALS: BP 152/52; PULSE 62; RESP 18; TEMP 36.9; O2SAT 98
[2024-11-04 06:17] LABS: Hematocrit 25.8 % (37.0-47.0); Hemoglobin 7.4 g/dL (12.0-15.0); Mean Corpuscular HGB Conc 28.7 g/dl (32-36); Mean Corpuscular Hemoglobin 29.1 pg (26-34); Mean Corpuscular Volume 101.6 fl (80-100); Mean Platelet Volume 10.1 fl (7.4-10.4); Platelet Count Result 283 k/mm3 (150-375); Red Blood Count 2.54 M/mm3 (4.2-5.4); Red Cell Distribution Width 15.3 % (11.5-14.5); White Blood Count 6.3 K/mm3 (4.5-10.0)
[2024-11-04 06:30] LABS: Alanine Aminotransferase 13 U/L (6-35); Albumin Level 3.4 g/dL (3.5-5.1); Alkaline Phosphatase 75 U/L (38-126); Anion Gap 6 mmol/L (4-12); Aspartate Amino Transferase 20 U/L (14-36); Bilirubin,Total 0.4 mg/dL (0.2-1.3); Blood Urea Nitrogen 15 mg/dL (7-17); Carbon Dioxide 23 mmol/L (22-30); Chloride 105 mmol/L (98-107); Estimated CRCL calculation 71 ml/min; Estimated Glomerular Filt Rate > 60; Glucose 84 mg/dL (65-110); Potassium 4.1 mmol/L (3.4-5.0); Sodium 134 mmol/L (137-145)
[2024-11-04 08:00] VITALS: PULSE 62; RESP 18; O2SAT 98
[2024-11-04 08:36] VITALS: PULSE 61
[2024-11-04] MEDS: ISOSORBIDE MONONITRATE 60 MG TAB.ER.24H PO (08:36)
[2024-11-04] MEDS: METOPROLOL TARTRATE 50 MG TAB PO (08:36)
[2024-11-04] MEDS: LOSARTAN POTASSIUM 25 MG TABLET PO (08:36)
[2024-11-04] MEDS: PANTOPRAZOLE 40 MG TABLET PO (08:36)
--- NOTE | 2024-11-04 08:39 | P.CONCA_ITS ---
Assessment and Plan Assessment and plan (1) History of CAD (coronary artery disease): Code(s): Z86.79 - Personal history of other diseases of the circulatory system Status: Acute Assessment and Plan: History of CAD with stenting in 2013 and 2017. Stable since that time. She is not reporting any anginal symptoms. Continue statin, Imdur, beta willie. She was taken off ASA because she is also on Eliquis for hx AF. (2) Hypertension: Code(s): I10 - Essential (primary) hypertension Status: Acute Assessment and Plan: Generally above goal. Takes spironolactone at home which she is not receiving here (H&P indicates she reported hyperkalemia but highest K+ here 4.6). K+ 4.1 today. Recommend to resume and increase to 25mg daily if BP remains elevated. Check BMP in one week as outpatient (3) Atrial fibrillation: Code(s): I48.91 - Unspecified atrial fibrillation Status: Acute Assessment and Plan: Reported history of atrial fibrillation. EKG and tele show sinus rhythm. Continue to hold Eliquis nd her primary supervisor loading can resume as outpatient when her anemia workup is complete. Plan Cardiology will sign off please call with questions. History of Present Illness History of Present Illness Consult date/time: 11/04/24 08:39 Requesting physician: Fran Moreno MD Consult reason: Other ( medication reconciliation ) Reason For Visit: Hyponatremia, Dizziness Narrative: Liana Hodges is a 78 year old female with coronary artery disease status post PCI/BONI x 3 to the RCA in 2013 and PCI/BONI x 2 to the LAD and RPL in 2017. She also has paroxysmal atrial fibrillation. She is hospitalized with weakness and has been found to be anemic. Cardiology has been consulted for our advice and opinion on her medical regimen. At this point both her apixaban has been placed on hold. She underwent EGD which did not reveal any source of bleeding, plan for outpatient capsule study. Tagged RBC scan negative as well. Patient is unsure about her history of atrial fibrillation and states her primary supervisor loading ran a bunch of tests and told her she did not have atrial fibrillation. She can't remember exactly when the diagnosis was made but she thinks she has been on Eliquis for 2 years. According to a note from her supervisor loading from 03/2024 she had a monitor that showed rare supraventricular ectopy but no atrial fibrillation. Review of Systems 2 Review of Systems: All systems reviewed & are unremarkable except as noted in HPI and below [facility] Past Medical History Medical History Atrial fibrillation Colon polyp GERD (gastroesophageal reflux disease) Surgical History Surgical History History of cardiac cath 5 stents in heart Family History Family History Mother TIA (transient ischemic attack) Arterial atherosclerosis Father Malignant neoplasm of prostate Social History Social History Smoking status: Never smoker Alcohol intake: never Substance use: never Substance use type: does not use Do You Feel Safe in your Home?: Yes Lack of Transportation: No Lack of Food: Never True Current Housing: I Have Housing Concerned About Future Housing: No Difficulty Paying Gas/Electric Bills: No Difficulty Paying for Meds: No Currently Unemployed: YES Education: Associate Degree Difficulty w/ Childcare or Family Care: No Living arrangements: with family Spiritual care concerns: No Meds Home Medications and Allergies Home Medications ?Medication ?Instructions ?Recorded ?Confirmed ?Type Tums 500 1,000 mg PO DAILY 02/01/24 10/29/24 History apixaban 5 mg tablet (Eliquis) 5 mg PO BID 02/01/24 10/29/24 History fluticasone propionate 50 2 mcg intranasal DAILY PRN 02/01/24 10/29/24 History mcg/actuation nasal Congestion spray,suspension isosorbide mononitrate 30 mg 60 mg PO DAILY 02/01/24 10/29/24 History tablet,extended release 24 hr loratadine 10 mg tablet 10 mg PO DAILY PRN Allergy Symptoms 02/01/24 10/29/24 History metoprolol tartrate 50 mg tablet 50 mg PO BID 02/01/24 10/29/24 History nitroglycerin 0.4 mg sublingual 0.4 mg sublingual PRN PRN Angina 02/01/24 10/29/24 History tablet omeprazole 20 mg capsule,delayed 20 mg PO DAILY 02/01/24 10/29/24 History release losartan 50 mg tablet 50 mg PO DAILY 10/12/24 10/29/24 History simvastatin 20 mg tablet 40 mg PO QPM 10/12/24 10/29/24 History spironolactone 25 mg tablet 12.5 mg PO DAILY 10/12/24 10/29/24 History losartan 25 mg tablet 25 mg PO DAILY 10/29/24 10/29/24 History Allergies Allergy/AdvReac Type Severity Reaction Status Date / Time adhesive tape Allergy Severe Swelling Verified 10/29/24 06:19 amlodipine Allergy Severe Swelling Verified 10/29/24 06:19 LOWER EXT. Iodinated Contrast Media Allergy Severe HEART Verified 10/29/24 06:19 ARRYTHMIA morphine Allergy Severe Dizziness Verified 10/29/24 06:19 codeine Allergy Intermediate Hallucinati Verified 10/29/24 06:19 ng latex Allergy Intermediate Itching Verified 10/29/24 06:19 Penicillins Allergy Intermediate Hives Verified 10/29/24 06:19 prednisone Allergy Intermediate HEART Verified 10/29/24 06:19 PALPITATIONS hydromorphone AdvReac Intermediate Nausea and Verified 10/29/24 06:19 Vomiting Sulfa (Sulfonamide AdvReac Intermediate Nausea and Verified 10/29/24 06:19 Antibiotics) Vomiting Vital Signs Vital Signs - 24 hr 11/03/24 12:00 11/03/24 14:00 11/03/24 16:00 Temperature 36.2 C L Pulse Rate 79 62 68 Respiratory Rate 16 Blood Pressure 146/52 H Pulse Oximetry 97 Oxygen Delivery Fraction of Inspired Oxygen 11/03/24 20:00 11/03/24 20:30 11/03/24 20:33 Temperature Pulse Rate 61 67 66 Respiratory Rate 20 Blood Pressure Pulse Oximetry 96 Oxygen Delivery Room Air Fraction of Inspired Oxygen 21 11/03/24 20:53 11/04/24 00:07 11/04/24 04:06 Temperature 36.8 C Pulse Rate 60 60 69 Respiratory Rate 18 Blood Pressure 155/55 H Pulse Oximetry 98 Oxygen Delivery Fraction of Inspired Oxygen 11/04/24 04:35 11/04/24 08:36 Temperature 36.9 C Pulse Rate 62 61 Respiratory Rate 18 Blood Pressure 152/52 H Pulse Oximetry 98 Oxygen Delivery Fraction of Inspired Oxygen Exam 2 Const: General: comfortable, no acute distress, alert and awake O rientation/consciousness: patient oriented x3 HENMT: Head: normal to inspection Eyes: General: appearance normal, both eyes and all related structures P upils: Equal, round and reactive pupils present Neck: Neck: normal visual inspection, supple and no JVD Carotids: normal carotid upstroke Resp: Effort & Inspection: normal respiratory effort Auscultation: clear to auscultation bilaterally Cardio: Rate: regular rate Rhythm: regular rhythm Heart sounds: S1 normal heart sound present, S2 normal heart sound present and no murmurs GI: Auscultation: normal bowel sounds Skin: General skin exam: normal color Neuro: General: patient oriented x3 Cranial nerves: Yes Equal, round and reactive pupils present Extrem: General: normal to inspection Psych: Appearance: grossly normal Mental Status: mental status grossly normal Results Labs and Meds 11/04/24 05:33 11/04/24 05:33 Lab results: Cardiac Enzymes 11/04/24 Range/Units 05:33 AST 20 (14-36) U/L CBC 11/04/24 Range/Units 05:33 WBC 6.3 (4.5-10.0) K/mm3 RBC 2.54 L (4.2-5.4) M/mm3 Hgb 7.4 L (12.0-15.0) g/dL Hct 25.8 L (37.0-47.0) % Plt Count 283 (150-375) k/mm3 Comprehensive Metabolic Panel 11/04/24 Range/Units 05:33 Sodium 134 L (137-145) mmol/L Potassium 4.1 (3.4-5.0) mmol/L Chloride 105 (98-107) mmol/L Carbon Dioxide 23 (22-30) mmol/L BUN 15 (7-17) mg/dL Creatinine 0.76 (0.7-1.0) mg/dL Glucose 84 (65-110) mg/dL Calcium 9.0 (8.4-10.2) mg/dL AST 20 (14-36) U/L ALT 13 (6-35) U/L Alkaline Phosphatase 75 (38-126) U/L Total Protein 6.0 L (6.3-8.2) g/dL Albumin 3.4 L (3.5-5.1) g/dL Intake and Output 11/03/24 11/04/24 11/04/24 23:59 07:59 15:59 Intake Total 1460 500 Balance 1460 500 Intake: Oral 1460 500 Other: # Unmeasured Voids 4 3
--- NOTE | 2024-11-04 09:10 | PM.DS ---
DS: Admitting Diagnosis Discharge Date 11/04/2024 Admitting Diagnosis Fatigue DS: Discharge Diagnosis Discharge Diagnosis (1) Acute hyponatremia: Code(s): E87.1 - Hypo-osmolality and hyponatremia Status: Acute Plan Brain cyst History of renal cyst Was diagnosed due to high blood pressure Serial monitoring of renal cyst Neurology consult, advised to follow-up with neuro surgery as outpatient Hyponatremia, resolved Likely from HCTZ she was taken outpatient Na 121 on admission, Na 136 s/p IVF HCTZ on hold Anemia Hb 7.3 s/p 1 unit pRBC ferritin 6.53 Venofer 1000/1000 monitor h and H GI reports no acute intervention during this hospitalization GI following CAD s/p stents Continue home meds Afib Eliquis on Hold due to possible GI leed FOBT pending HTN BP elevated COntinue home meds Anxiety start Buspirone DVT prophylaxis on SCDs Full code DS: Summary Hospital Course Hospital Course: 78 yo female with PMH of CAD s/p stents, HTN, Afib, Anxiety and hemorrhoids who presented to the ER on account of worsening gen weakness. Patient noted she has been having Hyponatremia and hyperkalemia, when she was started on HCTZ and eventually discontinued due to Hyponatremia. Noted she has had bloody stool and had EGD and Colonoscopy about 2 months ago and noted she was told it was normal. otherwise denies any chest pain, SOB, diarrhea, abd pain, vomiting, focal weakness. Noted she was sent to the ER by her PCP for hyponatremia. 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 In regards to Nonenhancing cystic lesion involving left side of the clivus and left petrous apex neurology was consulted. As per Neurology patient needs to closely follow up with Neurosurgery at [facility] or [facility]. In regards to anemia GI and heme Onc was consulted. GI performed EGD on 10/31/2024 shows no significant finding. GI reported will order small bowel capsule endoscopy as outpatient. I ordered Tagged RBC scan which shows no evidence of any GI bleeding. Heme/Oncology reported Labs showed iron deficiency ferritin of 6.5, iron saturation of 8% iron 32. With normal vitamin B12 level and kidney function.Etiology for iron deficiency remains unclear. She received iron infusion and blood transfusion with initial improvement in hemoglobin now dropped to 7.1 again. She remains asymptomatic without any melena and hematochezia. Brain MRI showed nonenhancing lytic lesion in the left side of the clivus and left petrous apex consistent with cyst. I will suggest holding the Eliquis until the source for iron deficiency anemia is found. Patient should consult with Cardiology. We will give her another round of iron infusion and continue oral iron 65 mg twice a day with vitamin-C 500 mg daily as an outpatient. If she remains anemic after correction of iron deficiency then will perform bone marrow biopsy that can be done as an outpatient. In regards to CAD patient has multiple stents placed (5) and on Eliquis and ASA. Both are placed on hold and consulted cardiology for their opinion. Patient might need Watchman device. Holding Eliquis and advised to discuss with Medical Transcriber before resuming On the day of discharge, the patient was seen and examined. Vital signs were stable. Physical exam were stable and labs were reviewed at length. Discharge instructions, medications, and follow-up appointments were discussed with the patient at length and all day questions were answered. ER warnings were given. Status at Discharge Cognitive/behavioral status at discharge: Stable Time Spent with Patient Time attestation: Total time spent providing and/or coordinating discharge services:45 minutes Exam Narrative: General: alert and comfortable Eyes: EOMI, PERRLA ENNT External ears normal, Neck is supple, no masses, Respiratory systems: Clear to auscultation Cardiovascular S1, S2, normal rhythm, no murmur, rub, or gallop; no thrill or palpable murmurs on palpation. Gastrointestinal: soft, non-tender, and non-distended abdomen with no masses; BS present Skin: no rash, lesions, ulcerations, subcutaneous nodules or induration Musculoskeletal: no abnormality and no tenderness, normal ROM Neurologic: Alert and oriented x3, non focal Mental Status Exam: normal affect DS: Data Data Completed and Pending Labs on day of discharge: Labs from last 24 hours 11/04/24 11/03/24 11/03/24 05:33 14:41 05:33 WBC 6.3 RBC 2.54 L Hgb 7.4 L Hct 25.8 L MCV 101.6 H MCH 29.1 MCHC 28.7 L RDW 15.3 H Plt Count 283 MPV 10.1 Sodium 134 L Potassium 4.1 Chloride 105 Carbon Dioxide 23 Anion Gap 6 BUN 15 Creatinine 0.76 Estim Creat Clear Calc 71 Estimated GFR > 60 Glucose 84 Calcium 9.0 Malena Transferrin Receptr Pending Total Bilirubin 0.4 AST 20 ALT 13 Alkaline Phosphatase 75 Total Protein 6.0 L Pending Albumin 3.4 L Pending Mtxci-3-Lpbhotgvs Pending Jstoq-0-Cdtpwanfa Pending Pueu-8-Yefelmle Pending Cdqn-5-Fpkglwys Pending Gamma Globulins Pending PEP Interpretation Pending Vitamin B12 645.0 Folate 13.0 Ur Random Creatinine Ur Random Chloride U Random Chloride/Creat Serum Immunofixation Pending Blood Type O Positive Antibody Screen Negative Crossmatch See Detail 10/28/24 22:49 WBC RBC Hgb Hct MCV MCH MCHC RDW Plt Count MPV Sodium Potassium Chloride Carbon Dioxide Anion Gap BUN Creatinine Estim Creat Clear Calc Estimated GFR Glucose Calcium Malena Transferrin Receptr Total Bilirubin AST ALT Alkaline Phosphatase Total Protein Albumin Lpljy-9-Eunkdgdyn Hxuqv-4-Udzslgdvc Oxgc-3-Leuqxhgm Avgd-1-Nxdogooi Gamma Globulins PEP Interpretation Vitamin B12 Folate Ur Random Creatinine 53 Ur Random Chloride 32 U Random Chloride/Creat 60 Serum Immunofixation Blood Type Antibody Screen Crossmatch Imaging Radiologist's impression: ITS Impressions Chest X-Ray 10/28/24 21:59 IMPRESSION: No acute cardiopulmonary pathology. Head CT 10/29/24 08:42 IMPRESSION: 1. No acute intracranial process. 2. Nonaggressive appearing likely chronic benign lytic lesion involving the left side of the clivus and the left petrous apex without evident solid soft tissue component. Recommend 0further evaluation with pre and postcontrast MRI. Chest/Abdomen/Pelvis CT 10/29/24 17:38 IMPRESSION: CHEST: 1. No acute cardiopulmonary pathology. 2. Subcarinal calcified lymph nodes. ABDOMEN/PELVIS: 1. No evidence of appendicitis, diverticulitis or intestinal obstruction. 2. Hyperdense material in the descending and sigmoid colon. Blood cannot be excluded. Colonoscopy advised. 3. Small hyperdense area in the left kidney lower pole. Follow-up advised. 4. Small aneurysmal dilatation in the distal aorta measuring 2.5 x 2.4 cm. Brain MRI 10/31/24 08:29 IMPRESSION: 1. Nonenhancing cystic-appearing lytic lesion involving the left side of the clivus and the left petrous apex. Constellation of findings most consistent with either a neuroenteric cyst, arachnoid cyst, intraosseous extension of an epidermoid cyst or ecchordosis physaliphora. Cholesteatoma would be less likely given the lack of restricted diffusion and there is no evident enhancement to suggest chordoma or other malignant neoplasm. GI Bleed Scan Nuclear Medicine 11/03/24 12:24 IMPRESSION: 1. No scintigraphic evidence for active gastrointestinal bleeding. Discharge Plan Discharge Attending physician on discharge: Fran Moreno Consulting providers: George Rivero; Navid Walden; Salma Saucedo Discharging Clinician: Fran Moreno Anticipated Discharge Date/Time: 11/04/24 09:22 Patient Disposition: Home Activity: as tolerated Diet: heart healthy Discharge Instructions: Patient might need Bone Marrow Biopsy as OP with Patient need capsule endoscopy with GI as outpatient Patient needs to closely follow up with Neurosurgery for lytic lesions in the brain. In case of shortness of breath, palpitation, chest pain please visit to nearby ED. Can be signs of anemia. 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 Follow-up with your PCP for blood pressure medication adjustment Check blood pressure 1 to 2 times a day. Record and bring into your doctor for review. Call your doctor if your blood pressure is greater than 180/110 or less than 90/45. Walk with cane or other assist device. Take precautions to avoid falls. Rise slowly from a lying or sitting position. Pause before standing or walking. Contact your doctor or call 911 and come to the Emergency Room if you have any type of trauma, lightheadedness with standing or other worrisome symptoms. Avoid NSAIDs (ibuprofen, naproxen, Aleve). Tylenol is safe to take. Follow-up with your primary care provider in 1-2 weeks. Please call for appointment. Follow-up with Cardiology in 2-4 weeks. Please call for an appointment. Thank you for using [facility] for your health care needs. Patient Instructions: Antibiotic Form, Apixaban (By mouth) Patient Language: Setswana Stand Alone Forms: General Discharge Information Follow-up/Referrals: Navid Walden MD [Physician] - Carolina,Susana J., MINE MANAGER [Primary Care Provider] - Salma Saucedo, SCALPER OPERATOR-C [Advanced Practice Nurse] - Tavo Espinosa MD [Physician] - Discharge Medications: New buspirone 5 mg Tablet 5 mg PO Q12HR Qty: 30 0RF calcium carbonate 500 mg calcium (1,250 mg) Tablet,Chewable 200 mg PO Q6H PRN (Reason: Indigestion) Qty: 30 0RF pantoprazole 40 mg Tablet,Delayed Release (Dr/Ec) 40 mg PO QAM Qty: 30 0RF Continued simvastatin 20 mg tablet 40 mg PO QPM isosorbide mononitrate 30 mg tablet extended release 24 hr 60 mg PO DAILY metoprolol tartrate 50 mg tablet 50 mg PO BID nitroglycerin 0.4 mg tablet, sublingual 0.4 mg sublingual PRN PRN (Reason: Angina) omeprazole 20 mg capsule,delayed release(DR/EC) 20 mg PO DAILY fluticasone propionate 50 mcg/actuation spray,suspension 2 mcg INTRANASAL DAILY PRN (Reason: Congestion) loratadine 10 mg Tablet 10 mg PO DAILY PRN (Reason: Allergy Symptoms) losartan 50 mg tablet 50 mg PO DAILY Patient Comments: takes in evening losartan 25 mg tablet 25 mg PO DAILY Patient Comments: takes in the am Held Eliquis 5 mg tablet 5 mg PO BID Hold Instructions: Resume on 12/08/24. Do not resume until discussed with the PCP/Cardiology Discontinued Tums 500 1,000 mg PO DAILY spironolactone 25 mg tablet 12.5 mg PO DAILY Date of admission: 10/29/24 03:06 Primary Care Provider: Carolina,Susana Tinajero Admitting Provider: Yohan Go Attending physician on admission: Yohan Go Condition: Stable
[2024-11-04 14:00] VITALS: BP 142/64; PULSE 62; RESP 19; TEMP 36.9; O2SAT 98
--- NOTE | 2024-11-04 14:50 | PCNWS ---
Weekly nutritional screen. Patient is tolerating current diet with adequate intake. No weight loss reported. No nutritional needs at this time.
[2024-11-07 10:57] LABS: Soluble Transferrin Receptor 1.87 mg/L (0.76-1.76)
[2024-11-07 15:35] LABS: Immunofixation, Serum Normal pattern.
[2024-11-09 03:19] LABS: Protein, Total 5.5 g/dL (6.1-8.1)
[2024-11-10 12:02] LABS: Albumin 3.2 g/dL (3.8-4.8); Alpha 1 Globulin 0.3 g/dL (0.2-0.3); Alpha 2 Globulin 0.6 g/dL (0.5-0.9); Beta 1 Globulin 0.4 g/dL (0.4-0.6); Gamma Globulin 0.8 g/dL (0.8-1.7)
== END 2024-11-04 15:10 | disposition home or self-care (01) | DRG 641 ==
LOC: ANHED 10-29 03:19 → ANH3MED 10-29 04:18
PROVIDERS: Internal Medicine; Internal Medicine Gastroenterology; Internal Medicine Hematology & Oncology; Admitting Provider Internal Medicine; Emergency Provider Student in an Organized Health Care Education/Training Program; PCP Nurse Practitioner; Visit Provider General Practice
PROC: 0DJ08ZZ Inspection of Upper Intestinal Tract, Via Natural or Artificial Opening Endoscopic (ICD-10-PCS; principal; 2024-10-31 15:00)
DX: E87.1 Hypo-osmolality and hyponatremia (principal); D50.9 Iron deficiency anemia, unspecified; I25.10 Atherosclerotic heart disease of native coronary artery without angina pectoris; G93.0 Cerebral cysts; I48.0 Paroxysmal atrial fibrillation; I10 Essential (primary) hypertension; F41.9 Anxiety disorder, unspecified; K64.9 Unspecified hemorrhoids; K21.9 Gastro-esophageal reflux disease without esophagitis; M89.8X9 Other specified disorders of bone, unspecified site; N28.1 Cyst of kidney, acquired; Z95.5 Presence of coronary angioplasty implant and graft; Z79.01 Long term (current) use of anticoagulants; Z79.82 Long term (current) use of aspirin; Z86.73 Personal history of transient ischemic attack (TIA), and cerebral infarction without residual deficits
CPT/HCPCS: 36415; 36430; 70450; 70553; 71046; 71250; 74176; 78278; 80053; 81003; 82274; 82436; 82570; 82607; 82728; 82746; 83540; 83550; 83735; 83930; 83935; 84133; 84155; 84156; 84165; 84238; 84295; 84300; 85014; 85018; 85025; 85027; 86334; 86850; 86900; 86901; 86923; 93005; 96374; 99285; A9270; A9560; A9579; J0360; J1756; J2003; J2704; J7030; J7050; J7120; P9016

== ENCOUNTER 2024-11-25 14:02 | Outpatient (CLI) | payer MEDICARE, SELFPAY ==
--- OUTSIDE RECORDS SUMMARY | 2024-11-25 14:05 | XMS_ITS | Clinical Summary ---
Author Organization [facility] [employer] Address [address] [place] [address] Care Team Providers Care Biological Sciences Instructor Name Role Phone Mary Delgado MD Primary Care Provider [phone] Source Comments [facility] [employer],non-owned Affiliates and Associated Physician Practices is amultiple site organization consisting of ambulatory clinics and hospital sitesin [place], [place]. This disclosure is being madepursuant to the Care Everywhere program and may not contain all information available regarding this patient. 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 Gender Identity Not on file Sexual Orientation [...] 10:56 PM CDT Height 172.7 cm (5' 8) 02/28/2021 10:56 PM CDT Body Mass Index [...] I Subscriber ID:Not on file (Home) Address: [address] [place] [id number] Payer ID:Not on file Group ID:Not on file Type:Self Pay Address: [facility] MANAGED MEDICARE ADV Advance Directives * Full Code (Latest Code Status on File) Date Activated Date Inactivated Comments 02/28/2021 10:39 PM 03/01/2021 8:14 PM * Full Code Date Activated Date Inactivated Comments 02/28/2021 10:16 PM 02/28/2021 10:39 PM Care Teams Biological Sciences Instructor Relationship Specialty Start Date End Date Mary Delgado MD [address] [place] [phone] PCP - General Family Medicine 02/28/21
[2024-11-25 14:20] LABS: Basophils Absolute Auto 0.1 K/mm3 (0.0-0.1); Basophils Percent Auto 1.2 % (0.2-1.2); Eosinophils Absolute Auto 0.2 K/mm3 (0-0.3); Eosinophils Percent Auto 2.7 % (0-4.4); Hematocrit 30.7 % (37.0-47.0); Hemoglobin 9.4 g/dL (12.0-15.0); Immature Granulocyte Absolute 0.01 K/mm3 (0.00-0.031); Immature Granulocyte Percent A 0.2 % (0-0.5); Lymphocytes Absolute Auto 1.73 K/mm3 (0.9-3.2); Lymphocytes Percent Auto 29.5 % (18.3-44.2); Mean Corpuscular HGB Conc 30.6 g/dl (32-36); Mean Corpuscular Hemoglobin 31.2 pg (26-34); Mean Platelet Volume 9.7 fl (7.4-10.4); Monocytes Absolute Auto 0.5 K/mm3 (0.1-0.6); Neutrophils Absolute Auto 3.4 K/mm3 (1.3-6.7); Neutrophils Percent Auto 57.4 % (45.5-73.1); Platelet Count Result 320 k/mm3 (150-375); Red Blood Count 3.01 M/mm3 (4.2-5.4); Red Cell Distribution Width 16.2 % (11.5-14.5); White Blood Count 5.9 K/mm3 (4.5-10.0)
[2024-11-25 15:27] LABS: Iron 118 ug/dL (37-170)
[2024-11-25 15:37] LABS: Percent Iron Saturation 41 % (20-50)
== END 2024-11-25 14:03 | disposition home or self-care (01) ==
LOC: ANHLAB 14:03
PROVIDERS: PCP Nurse Practitioner; Visit Provider Internal Medicine Hematology & Oncology
DX: D64.9 Anemia, unspecified (principal)
CPT/HCPCS: 36415; 82728; 83540; 83550; 85025

== ENCOUNTER 2024-12-27 05:28 | Outpatient (CLI) | payer MEDICARE, SELFPAY ==
--- OUTSIDE RECORDS SUMMARY | 2024-12-02 05:51 | XMS_ITS | Encounter Summary ---
Author Organization [facility] Address [address] [place] [address] Care Team Providers Care Accounting Advisory Services Manager Name Role Phone Mary Delgado MD Primary Care Provider [phone] Reason for Visit * Reason Comments Medication Refill Encounter Details Date Type Department Care Team (Late st Contact Info) Description 09/27/2015 Refill [facility] Family Medicine [facility] [address] [place] [address] [address] [place] [phone] Mary Delgado MD [address] [place] [phone] Social History Tobacco Use Types Packs/Day Years [...] as of this encounter Plan of Treatment Upcoming Encounters Date Type Department Care Team (Late Contact Info) Description 12/06/2024 4:30 PM CDT Telephone Check Up [facility] Oncology and Hematology - [place] [address] [place] [address] Navid Walden MD [address] [facility] [address] [place] [address] documented as of this encounter Visit Diagnoses Not on filedocumented in this encounter Additional Health Concerns Infection Onset Date Last Indicated Resolved Time C Diff 11/02/2019 12/29/2019 10/29/2022 1:00 AM CDT R/O COVID-19 05/08/2020 05/09/2020 05/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
--- OUTSIDE RECORDS SUMMARY | 2024-12-02 05:51 | XMS_ITS | Clinical Summary ---
Author Organization [facility] [employer] Address [address] [place] [address] Care Team Providers Care Industrial Relations Representative Name Role Phone Mary Delgado MD Primary Care Provider [phone] Source Comments [facility] [employer],non-owned Affiliates and Associated Physician Practices is amultiple site organization consisting of ambulatory clinics and hospital sitesin [place], [place], [place] and [place]. This disclosure is being madepursuant to the Care Everywhere program and may not contain all information available regarding this patient. Last updated 18.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 Gender Identity Not on file Sexual Orientation [...] Subscriber ID:Not on file (Home) Address: [address] [place] [phone] Payer ID:Not on file Group ID:Not on file Type:Self Pay Address: [facility] MANAGED MEDICARE ADV Advance Directives * Full Code (Latest Code Status on File) Date Activated Date Inactivated Comments 02/28/2021 10:39 PM 03/01/2021 8:14 PM * Full Code Date Activated Date Inactivated Comments 02/28/2021 10:16 PM 02/28/2021 10:39 PM Care Teams Industrial Relations Representative Relationship Specialty Start Date End Date Mary Delgado MD [address] [place] [phone] PCP - General Family Medicine 02/28/21
--- OUTSIDE RECORDS SUMMARY | 2024-12-02 05:51 | XMS_ITS | Encounter Summary ---
Author Organization [facility] Address [address] [place] [address] Care Team Providers Care Water And Sewer Systems Superintendent Name Role Phone CarolinaSusana eldridge Ajith [facility] Primary Care Provider [phone] Encounter Details Date Type Department Care Team (Late Contact Info) Description 03/08/2024 Abstract [facility], [facility] [address] [place], [place] [phone] Todd Castillo MA Social History Tobacco Use [...] Department Care Team (Late Contact Info) Description 12/21/2024 11:45 AM CDT Office Visit [facility], [facility] [address] [place], [place] [phone] Sandra Capps MD [facility]. [facility] [address] [place], [place] [phone] documented as of this encounter Procedures Procedure Name Priority Date/Time Associated Diagnosis Comments COMPREHENSIVE METABOLIC PANEL Routine 11/08/2024 CBC, MANUAL DIFF Routine 11/08/2024 VITAMIN D, 25 OH Routine 10/29/2024 BASIC METABOLIC PANEL Routine 10/14/2024 BASIC METABOLIC PANEL Routine 09/16/2024 BASIC METABOLIC PANEL Routine 04/06/2024 COMPREHENSIVE METABOLIC PANEL Routine 02/29/2024 CBC, MANUAL DIFF Routine 02/29/2024 documented in this encounter Results * COMPREHENSIVE METABOLIC PANEL (11/08/2024) SODIUM S/P/B 132 GLUCOSE 50 mg/dL AST 15 BUN 10 CREATININE S/P/B 0.79 0.5 - 1.0 CALCIUM S/P/B 9.1 POTASSIUM S/P/B 4.7 CHLORIDE S/P/B 100 ALT 19 GFR ESTIMATE 77 us Default History Genericprovider LABORATORY Edited Result - Final * CBC, MANUAL DIFF (11/08/2024) WBC 5.8 HGB 8.0 HCT 26 PLT 336 us Default History Genericprovider LABORATORY Edited Result - Final * VITAMIN D, 25 OH (10/29/2024) VITAMIN D 25 HYDROXY S/P/B 41 10/29/2024 us Default History Genericprovider LABORATORY Final Result * BASIC METABOLIC PANEL (10/14/2024) SODIUM S/P/B 127 135 - 146 POTASSIUM S/P/B 4.7 CO2 27 CHLORIDE S/P/B 95 GLUCOSE 80 mg/dL CALCIUM S/P/B 10.2 BUN 22 CREATININE S/P/B 0.94 0.5 - 1.0 GFR ESTIMATE 63 10/14/2024 us Default History Genericprovider LABORATORY Edited Result - Final * BASIC METABOLIC PANEL (09/16/2024) SODIUM S/P/B 137 POTASSIUM S/P/B 5.2 CO2 28 CHLORIDE S/P/B 102 GLUCOSE 90 mg/dL CALCIUM S/P/B 9.9 BUN 12 CREATININE S/P/B 0.80 0.5 - 1.0 GFR ESTIMATE 76 09/16/2024 us Default History Genericprovider LABORATORY Final Result * BASIC METABOLIC PANEL (04/06/2024) Pathologist [facility] SODIUM S/P/B 133 135 - 146 POTASSIUM S/P/B 5.3 CO2 27 CHLORIDE S/P/B 100 GLUCOSE 90 mg/dL CALCIUM S/P/B 10.2 BUN 16 CREATININE S/P/B 0.88 0.5 - 1.0 GFR ESTIMATE 68 04/06/2024 us Default History Genericprovider LABORATORY Final Result * COMPREHENSIVE METABOLIC PANEL (02/29/2024) Pathologist [facility] SODIUM S/P/B 136 GLUCOSE 107 mg/dL AST 22 BUN 13 CREATININE S/P/B 0.80 0.5 - 1.0 CALCIUM S/P/B 9.3 POTASSIUM S/P/B 3.9 CHLORIDE S/P/B 100 ALT 13 GFR ESTIMATE >60 us Default History Genericprovider LABORATORY Final Result * CBC, MANUAL DIFF (02/29/2024) Pathologist [facility] WBC 7.8 HGB 12.6 HCT 38.0 PLT 288 us Default History Genericprovider LABORATORY Final Result documented in this encounter Visit Diagnoses Not on filedocumented in this encounter Care Teams Water And Sewer Systems Superintendent Relationship Specialty Start Date End Date Susana Figueroa, GUT SNATCHER-BC [address] [place] [address] PCP - General NURSE PRACTITIONER 01/06/24 documented as of this encounter
--- OUTSIDE RECORDS SUMMARY | 2024-12-02 05:52 | XMS_ITS | Encounter Summary ---
Author Organization [facility] Address [facility] [place] [address] Care Team Providers Care Motorcoach Operator Name Role Phone Susana Figueroa Ajith [facility] Primary Care Provider [phone] Encounter Details Date Type Department Care Team (Late Contact Info) Description 11/10/2024 Results Follow-Up [facility], [address] [address] Ml Ornelas RN BASIC METABOLIC PANEL, BASIC METABOLIC PANEL, CBC, MANUAL DIFF, Additional followed-up results: 2 Social History Tobacco Use Types Packs/Day Years [...] Description 12/21/2024 11:45 AM CDT Office Visit [facility], [facility] [address] [place], [place] [phone] Sandra Capps MD [facility]. [facility] [address] [place], [place] [address] documented as of this encounter Visit Diagnoses Not on filedocumented in this encounter Care Teams Motorcoach Operator Relationship Specialty Start Date End Date Susana Figueroa, REGIONAL DIRECTOR OF ADMISSIONS- [address] [place], [place] [phone] PCP - General NURSE PRACTITIONER 01/06/24 documented as of this encounter
--- OUTSIDE RECORDS SUMMARY | 2024-12-02 05:52 | XMS_ITS | Clinical Summary ---
Author Organization [facility] Medical Office [facility] Address [address] [place] [address] Care Team Providers Care Apparatus Cleaner Name Role Phone Unavailable Primary Care Provider Unavailabl e Allergies Active Allergy Reactions Criticality Noted Date Comments Adhesive Other (See Comments) 11/25/2016 Redness/itching/bu rning Amlodipine Swelling Low 01/25/2020 Codeine Delirium Medium 05/31/2013 Hydromorphone (Bulk) Nausea and Vomiting Low 2013 Iodinated Contrast Media Arrhythmia High 05/31/2013 Latex Itching Low 03/30/2014 Morphine Dizziness,Headache Low 07/10/2016 Penicillins Rash Low 05/31/2013 Prednisone Palpitations Low 03/23/2016 Cupphzh-Byu-Wal Reductase Inhibitors Muscle Pain Low 11/26/2016 Sulfa (Sulfonamide Antibiotics) Nausea and Vomiting Low 05/31/2013 Medications simvastatin (ZOCOR) 40 mg tabletIndications:Pure hypercholesterolemia TAKE 1 TABLET BY MOUTH LATE IN THE DAY 90 Tablet 3 023 Active losartan (COZAAR) 50 mg tabletIndications:Essen tial hypertension take one tablet by mouth twice daily 180 Tablet 1 023 Active Additional Information Patient taking differently:50 mg OralDAILY, Reported on 11/25/2024 spironolactone (ALDACTONE) 25 mg tablet take one tablet by mouth every day 90 Tablet 1 024 Active metoprolol tartrate (LOPRESSOR) 50 mg tablet take one tablet by mouth twice daily 180 Tablet 2 024 Active omeprazole (PriLOSEC) 20 mg Capsule, Delayed Release(E.C.) take one capsule by mouth daily 90 Capsule 1 024 Active isosorbide mononitrate (IMDUR) 60 mg Extended Release 24 hour tablet Take 60 mg by mouth daily in the morning. Active aspirin (SILVIA CHEWABLE) 81 mg Tablet, Chewable Take 81 mg by mouth daily. 2024 Disconti nued(Dup licate Therapy) loratadine (CLARITIN) 10 mg tablet Take 10 mg by mouth 1 time daily as needed . 2024 Disconti nued(Dup licate Therapy) calcium as carbonate (TUMS ES) 750 mg (300 mg elemental) Tablet, Chewable Take 2 Tablets (600 mg) by mouth every 6 hours as needed for Dyspepsia or Indigestion. 30 Tablet 020 2024 Disconti nued(Dup licate Therapy) hydrALAZINE (APRESOLINE) 25 mg tablet Take 1 Tablet (25 mg) by mouth 1 time daily as needed for Other (See Comment) (SBP > 160/90). 30 Tablet 023 2024 Disconti nued(Dup licate Therapy) nitroglycerin (NITROSTAT) 0.[address], [address] 1 TAB UNDER TONGUE EVERY 5 MINUTES NEEDED FOR CHEST PAIN 25 Tablet 023 2024 Disconti nued(Dup licate Therapy) fluticasone propionate (FLONASE) 50 mcg/spray Bryant, Suspension nasal inhaler ADMINISTER TWO SPRAYS IN EACH NOSTRIL DAILY 48 Gram 023 2024 Disconti nued(Dup licate Therapy) methocarbamoL (ROBAXIN) 500 mg tablet Take 1 Tablet (500 mg) by mouth 4 times daily. 40 Tablet 1 024 2024 Disconti nued(Dup licate Therapy) traZODone (DESYREL) 50 mg tablet Take 1 Tablet (50 mg) by mouth daily at bedtime. 30 Tablet 2 024 2024 Disconti nued(Dup licate Therapy) Eliquis 5 mg tablet take one tablet by mouth twice daily 60 Tablet 6 024 2024 Disconti nued(Dup licate Therapy) isosorbide mononitrate (IMDUR) 30 mg Extended Release 24 hour tablet Take 60 mg by mouth daily. 024 2024 Disconti nued(Dup licate Therapy) Active Problems Patient Care Coordination No te Formatting of this note migh t be different from the original. 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 ([place]) Problem Noted Date Diagnosed Date Palpitations 11/05/2022 Dizziness 11/05/2022 Use of cane as ambulatory aid 10/01/2022 Abnormal finding of kidney 10/01/2022 [place] (myocardial infarction) 01/24/2022 Obesity 11/06/2021 Overview (08/27/2022): Query 3.8.23 mh Per PVQ JOSEP on CPAP 09/14/2020 Paroxysmal atrial fibrillation 05/01/2020 GERD (gastroesophageal reflux disease) 7 Statin intolerance 02/05/2016 Coronary artery disease invo lving [place] coronary artery of [place] heart without angina pectoris 04/19/2014 S/P coronary [...] Encounters Date Type Department Care Team Description 11/28/[address] [facility] Oncology and Hematology - [place] [address] [address] Navid Walden MD 11/25/2024 1:30 PM CDT Office Visit [facility] Oncology and Hematology - [place] [address] [place] [address] Navid Walden MD Chronic anemia (Primary Dx) 11/11/[address] [facility] Neurosurgery - [facility] [address] [facility] [address] [place] [address] Provider, Abstract 11/04/2024 External Device Data Initial Department [address] [place]: [place] [address] [facility] 11/03/2024 External Device Data [facility] Provider, Abstract 11/02/2024 External Device Data [facility] [place] Provider, Abstract 11/02/2024 External Device Data [facility] [place] Provider, Abstract 10/18/2024 External Device Data [facility] [place] Provider, Abstract from Last 3 Months Immunizations Immunization Administration Dates Next Due (PNEUMOVAX 23)(50 YRS UP) PN EUMOCOCCAL POLYSACCHARIDE (PPV23) 0.5 ML, IM 10/11/2016 (PREVNAR 13)(6 WKS UP) PNEUM OCOCCAL CONJUGATE (PCV13) 0.5 ML, IM 06/06/2014 Skin Test TB 05/05/2016,11/28/2014,11/21/2014 Family History Medical History Relation Name Comments No Known Problems Daughter Prostate Cancer Father Prostate Colon Cancer Mother Heart Disease Mother Hypertension Mother Thyroid Disease Sister 1 Lymphoma Sister 2 Heart Disease Sister 3 Throat Cancer Sister 3 No Known Problems Son 1 No Known Problems Son 2 Breast Cancer Neg Hx Ovarian Cancer Neg Hx Relation Name Status Comments Daughter Alive Father Mother Sister 1 Alive Sister 2 Alive Sister 3 Alive Son 1 Alive Son 2 Alive Social History Tobacco Use Types Packs/Day Years [...] week 04/25/2020 How often do you attend [facility] or sabian[facility] services? More than 4 times per year 04/25/2020 Do you belong to any clubs o r organizations such as amish groups, unions, fraternal or athletic groups, or [...] Sign Reading Time Taken Comments Blood Pressure 133/66 11/25/2024 1:40 PM CDT Pulse 67 11/25/2024 1:36 PM CDT Temperature 36.1 C (96.9 F) 11/25/2024 1:36 PM CDT Respiratory Rate 15 11/25/2024 1:36 PM CDT Oxygen Saturation 97% 11/25/2024 1:36 PM CDT Inhaled Oxygen Concentration - - Weight 109.6 kg (241 lb 9.6 oz) 11/25/2024 1:36 PM CDT Height 172.7 cm (5' 8) 11/25/2024 1:36 PM CDT Body Mass Index 36.74 11/25/2024 1:36 PM CDT Plan of Treatment Upcoming Encounters Date Type Department Care Team (Late st Contact Info) Description 12/06/2024 4:30 PM CDT Telephone Check Up [facility] Oncology and Hematology - [place] [address] [facility] [address] [place] [address] Navid Walden MD [address] [facility] [address] [place] [address] Health Maintenance Due Date Last Done Comments [...] , 06/06/2014 Medical Devices Implanted Type Area Instruction Assistant Principal Device Identifier Shelf Expiration Date Model / Serial / Lot Clip Endo Resolution 360 235cm [id number] - [id number] Implanted:Qty: 1 on 09/23/2018 by Jose Antonio Diane MD at [facility] [employer] [id number] / / Stent-10/10/2016 Implanted:Qty: 1 on 10/10/2016 by Carmine Villanueva MD Stent Coronary [place] DEVICE / / [id number] Description:Drug eluting yessi nt placed in the MID LAD Stent-10/10/2016 Implanted:Qty: 1 on 10/10/2016 by Carmine Villanueva MD Stent Coronary [facility] DEVICE / / [id number] Description:Drug eluting yessi nt placed in the RPL Procedures Procedure Name Priority Date/Time Associated Diagnosis Comments IRON LEVEL Routine 11/25/2024 2:22 PM CDT CBC WITH DIFFERENTIAL Routine 11/25/2024 2:01 PM CDT COLONOSCOPY REPORT 09/23/2018 11 :41 AM CDT XR DEXA BONE DENSITY AXIAL 1 OR MORE SITES Routine 08/23/2014 11:21 AM CDT Osteoporosis screening from Last 3 Months or Most Recently Relevant to Health Maintenance Results * IRON LEVEL (11/25/2024 2:22 PM CDT) Blood us Navid Walden MD CHEMISTRY ORDERABLES Final Resu lt * CBC WITH DIFFERENTIAL (11/25/2024 2:01 PM CDT) Blood us Navid Walden MD HEMATOLOGY ORDERABLES Final Res ult * COLONOSCOPY REPORT (09/23/2018 11:41 AM CDT) Narrative Procedure Note Jose Antonio Diane MD - 09/23/2018 11:41 AM CDT [facility] GI Patient Name: Liana Hodges Procedure Date: 09/23/2018 [...] pathology results. Procedure Code(s): --- Professional --- 45349, Colonoscopy, flexible; with removal of tumor(s), polyp(s), or other lesion(s) by snare technique 46490, 59, Colonoscopy, flexible; with biopsy, single or multiple CPT copyright 2016 [employer]. All rights reserved. The codes documented in this report are preliminary and upon quarrying manager review may be revised to meet current [...] followup exam in 2 years. TREATMENT: NOF [place] recommendations: 1. Adequate intake of Calcium and [...] found at [email or web address].ac.uk/FRAX/tool.aspx Dictated from Location 2: [facility] 08/24/2014 9:55 AM CDT XR DEXA [...] followup exam in 2 years. TREATMENT: NOF [place] recommendations: 1. Adequate intake of Calcium and [...] found at [email or web address].ac.uk/FRAX/tool.aspx Dictated from Location 2: [place], [place] Jackie Tran DO DIAGNOSTIC IMAGING ORDER ANDREW Final Result from Last 3 Months or Most Recently Relevant to Health Maintenance Insurance RX sfilatino Medicare Part D RX [facility] [facility] [id number] MEDICARE ADVANTAGE [id number] [address] [place] [address] Advance Directives For more information, please contact: [phone] * Full Code (Latest Code Status on [...]
--- OUTSIDE RECORDS SUMMARY | 2024-12-02 05:52 | XMS_ITS | Clinical Summary ---
Author Organization [facility] Address [address] [place] [address] Care Team Providers Care Aircraft Maintenance Director Name Role Phone Mali Mcrae [facility] Primary Care Provider [phone] Allergies Active Allergy Reactions Criticality Noted Date [...] total) by mouth 2 (two) times daily. 12/18/19 24 Active omeprazole (PRILOSEC) 20 MG capsule Take 1 capsule (20 mg total) by mouth daily. 08/17/19 24 Active ELIQUIS 5 MG tablet Take 1 tablet (5 mg total) by mouth 2 (two) times daily. Active nitroglycerin (NITROSTAT) 0.4 MG SL tablet 02/18/20 24 Active vitamin D2, ergocalciferol, (DRISDOL) 1.25 mg capsule take 1 capsule by mouth 1 time a week 08/16/19 25 Active simvastatin (ZOCOR) 40 MG tablet TAKE 1 TABLET(40 MG) BY MOUTH EVERY NIGHT AT BEDTIME 90 tablet 1 09/20/19 25 Active isosorbide mononitrate ER (IMDUR) 60 MG 24 hr tablet Take 1 tablet (60 mg total) by mouth daily. 30 tablet 5 09/20/19 25 Active fluticasone propionate (FLONASE) 50 MCG/ACT nasal spray 2 sprays by Each Nostril route daily. SHAKE LIQUID 09/20/19 25 Active spironolactone (ALDACTONE) 25 MG tablet Take 0.5 tablets (12.5 mg total) by mouth daily. 45 tablet 11/12/19 25 Active losartan (COZAAR) 50 MG tablet Take 1 tablet (50 mg total) by mouth every evening. NEW DOSE 11/11/2024 OV 90 tablet 1 11/12/19 25 Active diphenhydrAMINE (BENADRYL) 25 MG tablet Take 2 tablets the night before the procedure at 5pm, take 2 tablets at bedtime and 2 tablets the morning before the procedure 6 tablet 06/06/20 24 025 Discontinued(P t. elected to discontinue med) cimetidine (TAGAMET) 300 MG tablet Take one tablet the night before the procedure at 5pm, take one tablet at bedtime and one tablet the morning of the procedure 3 tablet 06/06/20 24 025 Discontinued(P t. 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) 01/24/2022 Obesity 11/06/2021 Overview (01/06/2024): Query 3.8.23 mh Per PVQ Chest pain 02/28/2021 JOSEP on CPAP 09/14/2020 Paroxysmal atrial fibrillation ([facility]) 05/01/2020 Coronary artery disease invo lving tribal coronary artery of tribal heart without angina pectoris 04/19/2014 S/P coronary artery stent placement 04/19/2014 HLD (hyperlipidemia) 03/30/2014 HTN (hypertension) 06/02/2013 Resolved Problems Problem Noted Date Diagnosed Date Resolved Date Statin intolerance 02/05/2016 Encounters Date Type Department Care Team Description 11/23/2024 9:00 AM CDT - 11/23/2024 11:59 PM CDT Hospital Encounter [facility] [place] [address] Mali Mcrae, FARM FIELD MANAGER- Discharge Disposition: Home or Self Care (Routine Discharge) 11/23/2024 Travel 2024 11:45 AM CDT Telephone [facility], [address] [address] Sandra Capps MD Holter Monitor 11/11/2024 10:15 AM CDT Office Visit [facility], [address] [address] Sandra Capps MD Coronary Artery Disease (3 month follow up) 11/11/2024 Travel 11/10/2024 Results Follow-Up [facility], [address] [address] Ml Ornelas RN BASIC METABOLIC PANEL, BASIC METABOLIC PANEL, CBC, MANUAL DIFF, Additional followed-up results: 2 11/09/2024 Telephone [facility], [place] [address] [place] [address] Sandra Capps MD Information ([facility]) 11/08/2024 Scan [facility] [address], [address] [place] [address] Scanned, Doc Pccl 11/08/2024 Telephone [facility] [address], [address] [place] [address] Ml Ornelas RN Question 11/04/2024 Scan [facility] [address], [address] [place] [address] Scanned, Doc Pccl 11/04/2024 Scan [facility] [address], [address] [place] [address] Scanned, Doc Pccl 11/03/2024 Scan [facility] [address], [address] [place] [address] Scanned, Doc Pccl 11/02/2024 Scan [facility] [address], [address] [place] [address] Scanned, Doc Pccl 10/31/2024 Scan [facility] [address], [address] [place] [address] Scanned, Doc Pccl 10/29/2024 Scan [facility] [address], [address] [place] [address] Scanned, Doc Pccl 10/29/2024 Scan [facility] [address], [address] [place] [address] Scanned, Doc Pccl 10/29/2024 Scan [facility] [address], [address] [place] [address] Scanned, Doc Pccl 10/29/2024 Scan [facility] [address], [address] [place] [address] Scanned, Doc Pccl 10/29/2024 Scan [facility], [address] [place] [address] Scanned, Doc Pccl 10/29/2024 Scan [facility], [address] [place] [address] Scanned, Doc Pccl 10/29/2024 Scan [facility], [address] [place] [address] Scanned, Doc Pccl 10/29/2024 Scan [facility], [address] [place] [address] Scanned, Doc Pccl 10/28/2024 Scan [facility], [address] [place] [address] Scanned, Doc Pccl 10/28/2024 Scan [facility], [address] [place] [address] Scanned, Doc Pccl 10/27/2024 Orders Only [facility], [address] [place] [address] Ml Ornelas RN 10/27/2024 Orders Only [facility], [address] [place] [address] Ml Ornelas, RN 10/27/2024 Telephone [facility], [address] [place] [address] Ml Ornelas, RN Weakness; Medication Request (Losartan increased) 10/17/2024 Telephone [facility], [address] [place] [address] Ml Ornelas, interim controller Results 10/10/2024 Orders Only [facility], [facility] [address] [place] [address] Ml Ornelas RN 10/10/2024 Orders Only [facility], [facility] [address] [place] [address] Ml Ornelas RN 10/10/2024 Telephone [facility], [facility] [address] [place] [address] Ml Ornelas, RN Blood Pressure 09/19/2024 Orders Only [facility], [facility] [address] [place] [address] Ml Ornelas RN 09/19/2024 Telephone [facility], [facility] [address] [place] [address] Ml Ornelas, interim controller Results 09/02/2024 12:15 PM CDT Office Visit [facility], [facility] [address] [place] [address] Sandra Capps MD Coronary Artery Disease; Hypertension (3 mo follow up) 09/02/2024 Orders Only [facility], [facility] [address] [place] [address] Sandra Capps MD 09/02/2024 Telephone [facility], [facility] [address] [place] [address] Sandra Capps MD Medication (ASPIRIN/) 09/02/2024 Travel [...] Sign Reading Time Taken Comments Blood Pressure 196/60 11/11/2024 10:34 AM CDT Pulse 58 11/11/2024 10:10 AM CDT Temperature 36.8 C (98.3 F) 12/05/2023 9:34 AM CDT Respiratory Rate 24 12/05/2023 1:00 PM CDT Oxygen Saturation 99% 11/11/2024 10:10 AM CDT Inhaled Oxygen Concentration - - Weight 110.2 kg (243 lb) 11/11/2024 10:10 AM CDT Height 172.7 cm (5' 8) 11/11/2024 10:10 AM CDT Body Mass Index 36.95 11/11/2024 10:10 AM CDT Plan of Treatment Upcoming Encounters Date Type Department Care Team (Late st Contact Info) Description 12/21/2024 11:45 AM CDT Office Visit [facility], [facility] [address] [place] [address] Sandra Capps MD [facility]. [facility] [address] [place] [address] Health Maintenance Due Date Last Done Comments ASCVD LDL 1945 Hepatitis C 11/16/1965 DTaP, Tdap and Td Vaccines ( 1 - Tdap) 11/16/1966 Zoster Vaccines (1 of 2) 11/16/1997 Annual Medicare Wellness Visit 11/16/2012 RSV Immunization or 60+ Years (1 - 1-dose 75+ series) 11/16/2022 COVID-19 Vaccine ( - 2023-2 5 season) 2024 Dexa Scan [...] Procedure Name Priority Date/Time Associated Diagnosis Comments US RETROPERITONEAL COMP Routine 11/24/19 9:57 AM CDT Cyst of left kidney COMPREHENSIVE METABOLIC PANEL Routine 11/08/2024 CBC, MANUAL DIFF Routine 11/08/2024 EGD GENERIC (SCAN ORDER) Routine 10/31/2024 MRI GENERIC Routine 10/29/2024 CT GENERIC Routine 10/29/2024 CT GENERIC Routine 10/29/2024 CT GENERIC Routine 10/29/2024 VITAMIN D, 25 OH Routine 10/29/2024 PROCEDURE GENERIC (SCAN ORDER) Routine 10/29/2024 ECG GENERIC (SCAN ORDER) Routine 10/28/2024 IMAGE GENERIC Routine 10/28/2024 BASIC METABOLIC PANEL Routine 10/14/2024 BASIC METABOLIC PANEL Routine 09/16/2024 from Last 3 Months Results * US RETROPERITONEAL COMP (11/23/2024 9:57 AM CDT) Anatomical Region Laterality Modality Abdomen Ultrasound 12/01/2024 1:58 PM CDT Impressions 12/01/2024 2:01 PM CDT IMPRESSION: 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 No other lesions in the kidneys. No acute finding. Ordered By: MALI MCRAE Interpreted By: Antonio Bhakta MD, 12/01/2024 1:58 PM Narrative 12/01/2024 2:01 PM CDT [address] [address] Examination: Retroperitoneal ultrasound. Exam date: 11/23/2024 Clinical history: Follow-up kidney cyst. Pt states was admitted at [facility] recently for anemia, states had a lot of tests done. Exam reason states left kidney cyst. Comparison: 06/14/2024 Technique: Sonographic evaluation of the retroperitoneum, including both kidneys and the urinary bladder, was performed utilizing grayscale and color Doppler technique. Findings: RIGHT KIDNEY: Kidney length 11.4 cm. AP kidney distance is 4.6 cm. Transverse kidney distance 4.6 cm. Normal cortical thickness. Normal cortical echoes. Normal cortical texture. Small 1.7 cm angiomyolipoma in the superior pole right kidney. No hydronephrosis. No stones. No perinephric fluid collection. No cysts. No suspicious finding. Color- flow Doppler maintained to the kidney. LEFT KIDNEY: Kidney length 10.8 cm. AP kidney distance is 4.8 cm. Transverse kidney distance 4.2 cm. Normal cortical thickness. Normal cortical echoes. Normal cortical texture. No hydronephrosis. No stones. No perinephric fluid collection. No suspicious finding. Color-flow Doppler maintained to the kidney. URINARY BLADDER: There is no urinary bladder wall thickening. Bilateral ureteral jets are visualized. OTHER: IVC patent. Procedure Note Antonio Bhakta MD - 12/01/[address] [address] Examination: Retroperitoneal ultrasound. Exam date: 11/23/2024 Clinical history: Follow-up kidney cyst. Pt states was admitted [facility] recently for anemia, states had a lot of tests done. Exam reasonstates left kidney cyst. Comparison: 06/14/2024 Technique: Sonographic evaluation of the retroperitoneum, including bothkidneys and the urinary bladder, was performed utilizing grayscale andcolor Doppler technique. Findings: RIGHT KIDNEY: Kidney length 11.4 cm. AP kidney distance is 4.6 cm. Transverse kidneydistance 4.6 cm. Normal cortical thickness. Normal cortical echoes. Normalcortical texture. Small 1.7 cm angiomyolipoma in the superior pole rightkidney. No hydronephrosis. No stones. No perinephric fluid collection. Nocysts. No suspicious finding. Color-flow Doppler maintained to thekidney. LEFT KIDNEY: Kidney length 10.8 cm. AP kidney distance is 4.8 cm. Transverse kidneydistance 4.2 cm. Normal cortical thickness. Normal cortical echoes. Normalcortical texture. No hydronephrosis. No stones. No perinephric fluidcollection. No suspicious finding. Color-flow Doppler maintained to thekidney. URINARY BLADDER: There is no urinary bladder wall thickening. Bilateral ureteral jets arevisualized. OTHER: IVC patent. 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 No other lesions in the kidneys. No acute finding. Ordered By: MALI MCRAE Interpreted By: Antonio Bhakta MD, 12/01/2024 1:58 PM us Mali Mcrae FARM FIELD MANAGER-BC ULTRASOUND Final Res ult * COMPREHENSIVE METABOLIC PANEL (11/08/2024) SODIUM S/P/B [...] Genericprovider LABORATORY Edited Result - Final * EGD (10/31/2024) us Doc Pccl Scanned SCANNING Final Result HS ONBASE * CT (10/29/2024) Only the most recent of3 resultswithin the time period is included. Anatomical Region Laterality Modality Other us Doc Pccl Scanned SCANNING Final Result * MRI (10/29/2024) Anatomical Region Laterality Modality Other us Doc Pccl Scanned SCANNING Final Result * PROCEDURE GENERIC (10/29/2024) us Doc Pccl Scanned SCANNING Final Result Performing Organization Address [facility] Co de Phone Number [facility] ON[facility] * VITAMIN D, 25 OH (10/29/2024) VITAMIN D 25 HYDROXY S/P/B 41 10/29/2024 us Default History Genericprovider LABORATORY Final Result * ECG (10/28/2024) us Doc Pccl Scanned SCANNING Final Result Performing Organization Address [facility] de Phone Number [facility] ONBASE * IMAGE STUDY (10/28/2024) Anatomical Region Laterality Modality Other us Doc Pccl Scanned SCANNING Final Result * BASIC METABOLIC PANEL (10/14/2024) Only the most recent of2 resultswithin the time period is included. SODIUM S/P/B 127 135 - 146 POTASSIUM S/P/B 4.7 CO2 27 CHLORIDE S/P/B 95 GLUCOSE 80 mg/dL CALCIUM S/P/B 10.2 BUN 22 CREATININE S/P/B 0.94 0.5 - 1.0 GFR ESTIMATE 63 10/14/2024 us Default History Genericprovider LABORATORY Edited Result - Final from Last 3 Months Insurance [address] [place] [address] [facility] Care Teams Aircraft Maintenance Director Relationship Specialty Start Date End Date Mali Mcrae, FARM FIELD MANAGER-[employer]IB[employer] [address] [place] [address] PCP - General NURSE PRACTITIONER 01/06/24
--- OUTSIDE RECORDS SUMMARY | 2024-12-02 05:52 | XMS_ITS | Encounter Summary ---
Author Organization [facility] Address [address] [place] [address] Care Team Providers Care Tow Boat Captain Name Role Phone Unavailable Primary Care Provider Unavailabl e Encounter Details Date Type Department Care Team (Late st Contact Info) Description 11/28/2024 Orders Only [facility] - [place] [address] [place] [address] Navid Walden MD [address] [place] [address] Social History Tobacco Use Types Packs/Day Years [...] 04/25/2020 How often do you attend chur ch or baptism services? More than 4 times per year 04/25/2020 Do you belong to any clubs o r organizations such as confucianist groups, unions, fraternal or athletic groups, or [...] 12/06/2024 4:30 PM CDT Telephone Check Up [facility]cology and [facility]ematology - [place] [address] [place] [address] Navid Walden MD [address] [place] [address] documented as of this encounter Procedures Procedure Name Priority Date/Time Associated Diagnosis Comments IRON LEVEL Routine 11/25/2024 2:22 PM CDT CBC WITH DIFFERENTIAL Routine 11/25/2024 2:01 PM CDT documented in this encounter Results * IRON LEVEL (11/25/2024 2:22 PM CDT) Blood us Navid Walden MD CHEMISTRY ORDERABLES Final Resu lt * CBC WITH DIFFERENTIAL (11/25/2024 2:01 PM CDT) Blood us Navid Walden MD HEMATOLOGY ORDERABLES Final Res ult documented in this encounter Visit Diagnoses Not on filedocumented in this encounter
--- NOTE | 2024-12-02 07:11 | SUR.PREOP ---
Pt arrived 0615 for givens capsule, pt was wearing a heart monitor that she forgot to tell us she had, uncertain about interference on either the givens was cancelled for today and will be rescheduled. We did not do anything that required charges.
--- NOTE | 2024-12-13 12:08 | PC.NURSE ---
Spoke with patient in regards to her rescheduled givens capsule endoscopy. Confirmed the new date and time. Patient stated heart monitor was removed, other than that there have been no changes to her medications or medical hx since we spoke to her last. Patient does not have any questions in regards to her new instructions that she received.
--- OUTSIDE RECORDS SUMMARY | 2024-12-27 05:30 | XMS_ITS | Encounter Summary ---
Author Organization [facility] Address [facility] [place] [address] Care Team Providers Care Renal Social Worker Name Role Phone Susana Figueroa [facility] Primary Care Provider [phone] Encounter Details Date Type Department Care Team (Late Contact Info) Description 12/21/2024 Orders Only [facility], [address] [place] [address] Sandra Capps MD [facility]. [address] [facility] [place], [place] [address] Social History Tobacco Use Types Packs/Day Years [...] Department Care Team (Late Contact Info) Description 03/22/2025 10:00 AM CDT Office Visit [facility], [address] [place], [place] [address] Aishwarya Zhao PA-C [address] [facility], [address] [place] [address] Scheduled Orders Name Type Priority Associated Diagnoses Orde r Schedule LIPID PANEL Lab Routine Hyperlipidemia, mixed Expected: 12/22/2024 (Approximate), Expires: 12/21/2025 documented as of this encounter Visit Diagnoses Diagnosis Hyperlipidemia, mixed- Primary Mixed hyperlipidemia documented in this encounter Care Teams Renal Social Worker Relationship Specialty Start Date End Date Susana Figueroa, [employer]- [address] [place] [id number] PCP - General NURSE PRACTITIONER 01/06/24 documented as of this encounter
--- OUTSIDE RECORDS SUMMARY | 2024-12-27 05:30 | XMS_ITS | Clinical Summary ---
Author Organization [facility] Address [address] [place] [address] Care Team Providers Care Tipple Operator Name Role Phone Mary Delgado MD Primary Care Provider [phone] Source Comments [facility],non-owned Affiliates and Associated Physician Practices is amultiple site organization consisting of ambulatory clinics and hospital sitesin [place], [place], [place] and [place]. This disclosure is being madepursuant to the Care Everywhere program and may not contain all information available regarding this patient. 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 Gender Identity Not on file Sexual Orientation [...] MEDICARE AWV CALENDAR YEAR 2024 INFLUENZA VACCINE (#1) 2025 HEPATITIS B VACCINE Aged Out No [...] I Subscriber ID:Not on file (Home) Address: [address] [place] [phone] Payer ID:Not on file Group ID:Not on file Type:Self Pay Address: [facility] MANAGED MEDICARE ADV Advance Directives * Full Code (Latest Code Status on File) Date Activated Date Inactivated Comments 02/28/2021 10:39 PM 03/01/2021 8:14 PM * Full Code Date Activated Date Inactivated Comments 02/28/2021 10:16 PM 02/28/2021 10:39 PM Care Teams Tipple Operator Relationship Specialty Start Date End Date Mary Delgado MD [address] [place] [phone] PCP - General Family Medicine 02/28/21
--- OUTSIDE RECORDS SUMMARY | 2024-12-27 05:30 | XMS_ITS | Encounter Summary ---
Author Organization [facility] Address [address] [place] [address] Care Team Providers Care Toys Inspector Name Role Phone CarolinaSusana eldridge Ajith [facility] Primary Care Provider [phone] Encounter Details Date Type Department Care Team (Late Contact Info) Description 03/08/2024 Abstract [facility], [address] [address] Todd Castillo MA Social History Tobacco Use [...] Description 03/22/2025 10:00 AM CDT Office Visit [place] [facility] [address] [place], [place] [id number] Aishwarya Zhao PA-C 3 [facility], [address] [place] [address] documented as of this encounter Procedures Procedure Name Priority Date/Time Associated Diagnosis Comments CBC (OUTSIDE LAB) Routine 12/13/2024 BNP Routine 12/13/2024 BASIC METABOLIC PANEL Routine 12/13/2024 COMPREHENSIVE METABOLIC PANEL Routine 11/08/2024 CBC, MANUAL DIFF Routine 11/08/2024 VITAMIN D, 25 OH Routine 10/29/2024 BASIC METABOLIC PANEL Routine 10/14/2024 BASIC METABOLIC PANEL Routine 09/16/2024 BASIC METABOLIC PANEL Routine 04/06/2024 COMPREHENSIVE METABOLIC PANEL Routine 02/29/2024 CBC, MANUAL DIFF Routine 02/29/2024 documented in this encounter Results * BNP (12/13/2024) B TYPE NATRIURETIC PEPTIDE 141 us Default History Genericprovider LABORATORY Edited Result - Final * BASIC METABOLIC PANEL (12/13/2024) SODIUM S/P/B 134 135 - 146 POTASSIUM S/P/B 5.1 CO2 28 CHLORIDE S/P/B 99 GLUCOSE 94 mg/dL CALCIUM S/P/B 10.1 BUN 12 CREATININE S/P/B 0.74 0.5 - 1.0 GFR ESTIMATE 83 12/13/2024 us Default History Genericprovider LABORATORY Final Result * CBC (OUTSIDE LAB) (12/13/2024) WBC 4.9 HGB 11.9 HCT 34.9 PLT 330 12/13/2024 us Default History Genericprovider LAB-OUTSIDE/ABST RACTED Edited Result - Final * COMPREHENSIVE METABOLIC PANEL (11/08/2024) SODIUM S/P/B 132 GLUCOSE 50 mg/dL AST 15 BUN 10 CREATININE S/P/B 0.79 0.5 - 1.0 CALCIUM S/P/B 9.1 POTASSIUM S/P/B 4.7 CHLORIDE S/P/B 100 ALT 19 GFR ESTIMATE 77 [facility] Genericprovider LABORATORY Edited Result - Final * CBC, MANUAL DIFF (11/08/2024) WBC 5.8 HGB 8.0 HCT 26 PLT 336 Result [facility] Genericprovider LABORATORY Edited Result - Final * VITAMIN D, 25 OH (10/29/2024) VITAMIN D 25 HYDROXY S/P/B 41 10/29/2024 [facility] History Genericprovider LABORATORY Final Result * BASIC METABOLIC PANEL (10/14/2024) SODIUM S/P/B 127 135 - 146 POTASSIUM S/P/B 4.7 CO2 27 CHLORIDE S/P/B 95 GLUCOSE 80 mg/dL CALCIUM S/P/B 10.2 BUN 22 CREATININE S/P/B 0.94 0.5 - 1.0 GFR ESTIMATE 63 10/14/2024 Default History Genericprovider LABORATORY Edited Result - [...] S/P/B 100 ALT 13 GFR ESTIMATE >60 Default History Genericprovider LABORATORY Final Result * CBC, MANUAL DIFF (02/29/2024) WBC 7.8 HGB 12.6 HCT 38.0 PLT 288 Default History Genericprovider LABORATORY Final Result documented in this encounter Visit Diagnoses Not on filedocumented in this encounter Care Teams Toys Inspector Relationship Specialty Start Date End Date Susana Figueroa, RIGGING UP MAN-BC [address] [place] [address] PCP - General NURSE PRACTITIONER 01/06/24 documented as of this encounter
--- OUTSIDE RECORDS SUMMARY | 2024-12-27 05:30 | XMS_ITS | Encounter Summary ---
Author Organization [facility] Address [facility] [place] [address] Care Team Providers Care Youth Leader Name Role Phone Susana Figueroa Ajith [facility] Primary Care Provider [phone] Encounter Details Date Type Department Care Team (Late st Contact Info) Description 12/12/2024 Results Follow-Up [place] [facility], [address] [address] Ml Ornelas RN CLINIC - OUTPATIENT EVENT RECORDER (ECG) UP TO 30 DAYS COMPLETE (Holter) Social History Tobacco Use Types Packs/Day Years [...] Care Team (Late st Contact Info) Description 03/22/2025 10:00 AM CDT [facility] [place] [address] [place] [address] Aishwarya Zhao PA-C 3 [facility], [address] [place] [address] documented as of this encounter Visit Diagnoses Not on filedocumented in this encounter Care Teams Youth Leader Relationship Specialty Start Date End Date Susana Figueroa, [facility] [place] [address] PCP - General NURSE PRACTITIONER 01/06/24 documented as of this encounter
--- OUTSIDE RECORDS SUMMARY | 2024-12-27 05:30 | XMS_ITS | Encounter Summary ---
Author Organization [facility] Address [address] [place] [address] Care Team Providers Care Child Development Associate Teacher Name Role Phone Mary Delgado MD Primary Care Provider [phone] Reason for Visit * Reason Comments Medication Refill Encounter Details Date Type Department Care Team (Late st Contact Info) Description 09/27/2015 Refill [facility] Family Medicine [facility] [address] [place] [address] [address] [place] [phone] Mary Delgado MD [address] [place] [phone] Social History Tobacco Use Types Packs/Day Years [...] Department Care Team (Late Contact Info) Description 03/20/2025 2:00 PM CDT Office Visit [facility] Oncology and Hematology - [place] [address] [place] [address] Navid Walden MD 222 [facility] [address] [place] [address] documented as of this encounter Visit Diagnoses Not on filedocumented in this encounter Additional Health Concerns Infection Onset Date Last Indicated Resolved Time C Diff 11/02/2019 12/29/2019 10/29/2022 1:00 AM CDT R/O COVID-19 05/08/2020 05/09/2020 05/10/2020 3:15 PM SEED TESTER COVID-19 05/09/2020 05/09/2020 06/08/2020 1:16 AM SEED TESTER COVID-19 03/05/2022 03/05/2022 03/25/2022 1:16 AM CDT documented as of this encounter Care Teams Child Development Associate Teacher Relationship Specialty Start Date End Date Mary Delgado MD [address] [place] [phone] PCP - General Family Practice 12/22/14 02/18/24 documented as of this encounter
--- OUTSIDE RECORDS SUMMARY | 2024-12-27 05:31 | XMS_ITS | Encounter Summary ---
Author Organization [facility] Address [facility] [place] [address] Care Team Providers Care Rn Neonatal Name Role Phone Susana Figueroa Ajith [facility] Primary Care Provider [phone] Encounter Details Date Type Department Care Team (Late Contact Info) Description 11/10/2024 Results Follow-Up [place] [facility], [address] [address] Ml Ornelas RN BASIC METABOLIC PANEL, BASIC METABOLIC PANEL, CBC, MANUAL DIFF, Additional followed-up results: 5 Social History Tobacco Use Types Packs/Day Years [...] Description 03/22/2025 10:00 AM CDT [facility], [address] [address] Aishwarya Zhao PA-C [address] [place] [address], [address] [place], [place] [address] documented as of this encounter Visit Diagnoses Not on filedocumented in this encounter Care Teams Rn Neonatal Relationship Specialty Start Date End Date Susana Figueroa, BUSINESS PROFESSOR- [address] [place], [place] [id number] PCP - General NURSE PRACTITIONER 01/06/24 documented as of this encounter
--- OUTSIDE RECORDS SUMMARY | 2024-12-27 05:31 | XMS_ITS | Clinical Summary ---
Author Organization [facility] Address [address] [place] [address] Care Team Providers Care Power Plant Operators Supervisor Name Role Phone Mali Mcrae [facility] Primary Care Provider [phone] Allergies Active Allergy Reactions Criticality Noted Date [...] total) by mouth 2 (two) times daily. 12/18/2023 Active omeprazole (PRILOSEC) 20 MG capsule Take 1 capsule (20 mg total) by mouth daily. 08/17/2023 Active ELIQUIS 5 MG tablet Take 1 tablet (5 mg total) by mouth 2 (two) times daily. Active nitroglycerin (NITROSTAT) 0.4 MG SL tablet 02/18/2024 Active vitamin D2, ergocalciferol, (DRISDOL) 1.25 mg capsule take 1 capsule by mouth 1 time a week 08/15/2024 Active simvastatin (ZOCOR) 40 MG tablet TAKE 1 TABLET(40 MG) BY MOUTH EVERY NIGHT AT BEDTIME 90 tablet 1 09/19/2024 Active isosorbide mononitrate ER (IMDUR) 60 MG 24 hr tablet Take 1 tablet (60 mg total) by mouth daily. 30 tablet 5 09/19/2024 Active fluticasone propionate (FLONASE) 50 MCG/ACT nasal spray 2 sprays by Each Nostril route daily. SHAKE LIQUID 09/19/2024 Active spironolactone (ALDACTONE) 25 MG tablet Take 0.5 tablets (12.5 mg total) by mouth daily. 45 tablet 11/11/2024 Active losartan (COZAAR) 50 MG tablet Take 1 tablet (50 mg total) by mouth every evening. NEW DOSE 11/11/2024 OV 90 tablet 1 11/11/2024 Active aspirin EC (ECOTRIN) 81 MG tablet Take 1 tablet (81 mg total) by mouth daily. 90 tablet 1 12/21/2024 Active hydroCHLOROthiaz sunitha (MICROZIDE) 12.5 MG tablet Take 1 tablet (12.5 mg total) by mouth every morning. 30 tablet 3 12/21/2024 Active Active Problems Problem Noted Date Diagnosed Date Dizziness 11/05/2022 Palpitations 11/05/2022 [place] (myocardial infarction) 01/24/2022 Obesity 11/06/2021 Overview (01/06/2024): Query 3.8.23 mh Per PVQ Chest pain 02/28/2021 JOSEP on CPAP 09/14/2020 Paroxysmal atrial fibrillation ([facility]) 05/01/2020 Coronary artery disease invo lving [place] coronary artery of [place] heart without angina pectoris 04/19/2014 S/P coronary artery stent placement 04/19/2014 HLD (hyperlipidemia) 03/30/2014 HTN (hypertension) 06/02/2013 Resolved Problems Problem Noted Date Diagnosed Date Resolved Date Statin intolerance 02/05/2016 4 Encounters Date Type Department Care Team Description 12/21/2024 11:45 AM CDT [facility] [place] [address] [place] [address] Sandra Capps MD Coronary Artery Disease; Atrial Fibrillation (6 wk follow up) 12/21/2024 Orders Only [facility] [address], [place] [address] [place] [address] Sandra Capps MD 12/21/2024 Travel 12/13/2024 Telephone [facility] [address] [facility] [address], [place] [address] [place] [address] Ml Ornelas RN Results 12/12/2024 Results Follow-[facility] [address] [facility], [place] [address] [place] [address] Ml Ornelas, RN CLINIC - OUTPATIENT EVENT RECORDER (ECG) UP TO 30 DAYS COMPLETE (Holter) 11/23/2024 9:00 AM CDT - 11/23/2024 11:59 PM CDT Hospital Encounter [facility] [address] [facility] [place] [place] [address] Mali Mcrae, [facility]- Discharge Disposition: Home or Self Care (Routine Discharge) 11/23/2024 Travel 2024 11:45 AM CDT Telephone [facility] [address], [facility] [address] [place] [address] Sandra Capps MD Holter Monitor 11/11/2024 10:15 AM CDT Office [facility] [address], [facility] [address] [place] [address] Sandra Capps MD Coronary Artery Disease (3 month follow up) 11/11/2024 Travel 11/10/2024 Results Follow-[facility] [address], [facility] [address] [place] [address] Ml Ornelas RN BASIC METABOLIC PANEL, BASIC METABOLIC PANEL, CBC, MANUAL DIFF, Additional followed-up results: 5 11/09/2024 Telephone [facility] [address], [place] [address] [place] [address] Sandra Capps MD Information ([facility] [place]) 11/08/2024 Scan [facility] [address], [place] [address] [place] [address] Scanned, Doc Pccl 11/08/2024 Telephone [facility] [address], [place] [address] [place] [address] Ml Ornelas RN Question 11/04/2024 Scan [facility] [address], [place] [address] [place] [address] Scanned, Doc Pccl 11/04/2024 Scan [facility] [address], [place] [address] [place] [address] Scanned, Doc Pccl 11/03/2024 Scan [facility] [address], [place] [address] [place] [address] Scanned, Doc Pccl 11/02/2024 Scan [facility] [address], [place] [address] [place] [address] Scanned, Doc Pccl 10/31/2024 Scan [facility] [address], [place] [address] [place] [address] Scanned, Doc Pccl 10/29/2024 Scan [facility] [address], [place] [address] [place] [address] Scanned, Doc Pccl 10/29/2024 Scan [facility] [address], [place] [address] [place] [address] Scanned, Doc Pccl 10/29/2024 Scan [facility] [address], [place] [address] [place] [address] Scanned, Doc Pccl 10/29/2024 Scan [facility] [address], [place] [address] [place] [address] Scanned, Doc Pccl 10/29/2024 Scan [facility] [address], [place] [address] [place] [address] Scanned, Doc Pccl 10/29/2024 Scan [facility] [address], [place] [address] [place] [address] Scanned, Doc Pccl 10/29/2024 Scan [facility] [address], [place] [address] [place] [address] Scanned, Doc Pccl 10/29/2024 Scan [facility] [address], [place] [address] [place] [address] Scanned, Doc Pccl 10/28/2024 Scan [facility] [address], [place] [address] [place] [address] Scanned, Doc Pccl 10/28/2024 Scan [facility] [address], [place] [address] [place] [address] Scanned, Doc Pccl 10/27/2024 Orders Only [facility] [address], [place] [address] [place] [address] Ml Ornelas RN 10/27/2024 Orders Only [facility] [address], [place] [address] [place] [address] Ml Ornelas RN 10/27/2024 Telephone [facility] THREE [facility], [place] [address] [place] [address] Ml Ornelas, RN Weakness; Medication Request (Losartan increased) 10/17/2024 Telephone [facility], [place] [address] [place] [address] Ml Ornelas, telephone clerk telegraph office Results 10/10/2024 Orders Only [facility], [place] [address] [place] [address] Ml Ornelas RN 10/10/2024 Orders Only [facility], [place] [address] [place] [address] Ml Ornelas RN 10/10/2024 Telephone [facility], [place] [address] [place] [address] Ml Ornelas, CYNTHIA Blood Pressure from Last 3 Months Family History Medical [...] Sign Reading Time Taken Comments Blood Pressure 190/58 12/21/2024 12:06 PM CDT TA JAMIE BY Pulse 58 12/21/2024 11:45 AM CDT Temperature 36.8 C (98.3 F) 12/05/2023 9:34 AM CDT Respiratory Rate 24 12/05/2023 1:00 PM CDT Oxygen Saturation 97% 12/21/2024 11:45 AM CDT Inhaled Oxygen Concentration - - Weight 110.2 kg (243 lb) 12/21/2024 11:45 AM CDT Height 172.7 cm (5' 8) 12/21/2024 11:45 AM CDT Body Mass Index 36.95 12/21/2024 11:45 AM CDT Plan of Treatment Upcoming Encounters Date Type Department Care Team (Late st Contact Info) Description 03/22/2025 10:00 AM CDT Office Visit [facility], [address] [place] [address] Aishwarya Zhao PA-C 3 [facility], [address] [place] [address] Health Maintenance Due Date Last Done Comments [...] Procedure Name Priority Date/Time Associated Diagnosis Comments BNP Routine 12/13/2024 BASIC METABOLIC PANEL Routine 12/13/2024 CBC (OUTSIDE LAB) Routine 12/13/2024 EVENT RECORDER (ECG) UP TO 30 DAYS COMPLETE Routine 12/12/2024 2:57 PM CDT Essential (primary) hypertension SOB (shortness of breath) US RETROPERITONEAL COMP Routine 11/24/19 9:57 AM [...] Routine 10/28/2024 BASIC METABOLIC PANEL Routine 10/14/2024 from Last 3 Months Results * CBC (OUTSIDE LAB) (12/13/2024) Pathologist [facility] WBC 4.9 HGB 11.9 HCT 34.9 PLT 330 12/13/2024 us Default History Genericprovider LAB-OUTSIDE/ABST RACTED Edited Result - Final * BNP (12/13/2024) Pathologist [facility] B TYPE NATRIURETIC PEPTIDE 141 us Default History Genericprovider LABORATORY Edited Result - Final * BASIC METABOLIC PANEL (12/13/2024) Only the most recent of2 resultswithin the time period is included. SODIUM S/P/B 134 135 - 146 POTASSIUM S/P/B 5.1 CO2 28 CHLORIDE S/P/B 99 GLUCOSE 94 mg/dL CALCIUM S/P/B 10.1 BUN 12 CREATININE S/P/B 0.74 0.5 - 1.0 GFR ESTIMATE 83 12/13/2024 us Default History Genericprovider LABORATORY Final Result * CLINIC - OUTPATIENT EVENT RECORDER (ECG) UP TO 30 DAYS COMPLETE (Holter) (12/12/2024 2:57 PM CDT) Narrative [facility] - 12/12/2024 2:57 PM CDT [place], [place] [address] MOBILE CARDIAC TELEMETRY REPORT Patient Name: Liana Hodges : 1945 Ophthalmology Technician Date: 11/21/2024 Duration of monitorin days Performed At: [place], [place] Interpreting Thermoscrew Operator: Dr. Sandra Capps PCP: STERLING GARCIA INDICATION: Paroxysmal atrial fibrillation INTERPRETATION: Predominant rhythm is sinus with an average of 61bpm (range 44-98). No significant pauses noted. Bradycardia was present for 40% of the monitored time, tachycardia was present for <1% of the monitored time. First-degree AV block noted. Intraventricular conduction is within normal limits. There were 1,772 Supraventricular Ectopic beats with a burden of <1%. 2 Supraventricular Tachycardia events - the longest episode was 7.3s, and the fastest episode was 116 BPM There were 585 Ventricular Ectopic beats with a burden of <1%. This includes isolated PVCs, ventricular couplet and 2 ventricular triplets. No Atrial Fibrillation. Symptoms reported including feeling faint, shortness of breath. No correlating rhythm abnormality noted. CONCLUSIONS Sinus rhythm at an average of 61bpm Rare ventricular, supraventricular ectopy Symptoms do not correlate with any significant rhythm abnormality. 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 No other lesions in the kidneys. No acute finding. Ordered By: MALI MCRAE Interpreted By: Antonio Bhakta MD, 12/01/2024 1:58 PM Narrative 12/01/2024 2:01 PM CDT [address] [address] Examination: Retroperitoneal ultrasound. Exam date: 11/23/2024 Clinical history: Follow-up kidney cyst. Pt states was admitted at [facility] recently for anemia, states had a lot [...] Procedure Note Antonio Bhakta MD - 12/01/[address] [address] Examination: Retroperitoneal ultrasound. Exam date: 11/23/2024 Clinical history: Follow[place] cyst. [facility], states had a lot [...] By: Antonio Bhakta MD, 12/01/2024 1:58 PM Mali Mcrae [facility]- ULTRASOUND Final Res ult * COMPREHENSIVE METABOLIC [...] Scanned SCANNING Final Result Performing Organization Address [facility] de Phone Number [facility] * CT (10/29/2024) Only the most recent of3 resultswithin the time period is included. Anatomical Region Laterality Modality Other us Doc Pccl Scanned SCANNING Final Result * MRI (10/29/2024) Anatomical Region Laterality Modality Other us Doc Pccl Scanned SCANNING Final Result * PROCEDURE GENERIC (10/29/2024) us Doc Pccl Scanned SCANNING Final Result Performing Organization Address [facility] de Phone Number [facility] * VITAMIN D, 25 OH (10/29/2024) VITAMIN D 25 HYDROXY S/P/B 41 10/29/2024 us Default History Genericprovider LABORATORY Final Result * ECG (10/28/2024) us Doc Pccl Scanned SCANNING Final Result Performing Organization Address [facility] de Phone Number [facility] * IMAGE STUDY (10/28/2024) Anatomical Region Laterality Modality Other us Doc Pccl Scanned SCANNING Final Result from Last 3 Months Insurance [facility] Care Teams Power Plant Operators Supervisor Relationship Specialty Start Date End Date Mali Mcrae, PHYSICIAN SURGEON- [address] [place] [address] PCP - General NURSE PRACTITIONER 01/06/24
--- OUTSIDE RECORDS SUMMARY | 2024-12-27 05:31 | XMS_ITS | Clinical Summary ---
Author Organization [facility] Address [address] [place] [address] Care Team Providers Care Technical Lead Name Role Phone Unavailable Primary Care Provider Unavailabl e Allergies Active Allergy Reactions Criticality Noted Date Comments Adhesive Other (See Comments) 11/25/2016 Redness/itching/bu rning Amlodipine Swelling Low 01/25/2020 Codeine Delirium Medium 05/31/2013 Hydromorphone (Bulk) Nausea and Vomiting Low 2013 Iodinated Contrast Media Arrhythmia High 05/31/2013 Latex Itching Low 03/30/2014 Morphine Dizziness,Headache Low 07/10/2016 Penicillins Rash Low 05/31/2013 Prednisone Palpitations Low 03/23/2016 Cccsodd-Mvc-Blt Reductase Inhibitors Muscle Pain Low 11/26/2016 Sulfa [...] by mouth daily in the morning. Active Active Problems Patient Care Coordination No te Formatting of this note migh t be different from the original. 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[place]) Problem Noted Date Diagnosed Date Palpitations 11/05/2022 Dizziness 11/05/2022 Use of cane as ambulatory aid 10/01/2022 Abnormal finding of kidney 10/01/2022 Old GA (myocardial infarction) 01/24/2022 Obesity 11/06/2021 Overview (08/27/2022): Query 3.8.23 mh Per PVQ JOSEP on CPAP 09/14/2020 Paroxysmal atrial fibrillation 05/01/2020 GERD (gastroesophageal reflux disease) 7 Statin intolerance 02/05/2016 Coronary artery disease invo lving [place] coronary artery of [place] heart without angina pectoris 04/19/2014 S/P coronary [...] Encounters Date Type Department Care Team Description 12/06/2024 4:30 PM CDT Telephone Check Up [facility] Oncology and Hematology - [place] [address] [place] [phone] Navid Walden MD Chronic anemia (Primary Dx) 11/28/2024 Orders Only [facility] Oncology and Hematology [place] [address] [place] [address] Navid Walden MD 11/25/2024 1:30 PM CDT Office Visit [facility] Oncology and Hematology [place] [address] [place] [address] Navid Walden MD Chronic anemia (Primary Dx) 11/11/2024 Abstract [facility] Neurosurgery - [facility] [address] [place] [address] Provider, Abstract 11/04/2024 External Device Data Initial Department [address] [place]: [place] [address] [facility], 11/03/2024 External Device Data STL ABSTRACTION Provider, [...] often do you attend chur ch or mandaeism services? More than 4 times per year 04/25/2020 Do you belong to any clubs o r organizations such as jainism groups, unions, fraternal or athletic groups, or [...] Care Team (Late st Contact Info) Description 03/20/2025 2:00 PM CDT Office Visit [facility] Oncology and Hematology - [place] [address] [facility] [address] [place] [address] Navid Walden MD [address] [facility] [address] [place] [address] Health Maintenance Due Date Last Done Comments DTAP/TDAP/TD VACCINES (1 - Tdap) 11/16/1966 ZOSTER VACCINE (1 of 2) 11/16/1997 OSTEOPOROSIS SCREENING 08/24/2019 08/23/2014 RSV VACCINE (60+ or ) (1 - 1-dose 75+ series) 11/16/2022 COLORECTAL SCREENING 09/24/2023 09/23/2018, 09/23/2018, 09/23/2018, Additional history exists INFLUENZA VACCINE (#1) 2025 3, 08/14/2022, 04/26/2021, Additional history exists PNEUMOCOCCAL VACCINE 50+ YEARS Completed 10/11/2016 , 06/06/2014 Medical Devices Implanted 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 Shelf Expiration Date Model / Serial / Lot Clip Endo Resolution 360 235cm [id number] - [id number] Implanted:Qty: 1 on 09/23/2018 by Jose Antonio Diane MD at [facility] Clip [employer]- ENDOSCOPY [id number] / / Stent-10/10/2016 Implanted:Qty: 1 on 10/10/2016 by Carmine Villanueva MD Stent Coronary HERRERA- VASC DEVICE / / [id number] Description:Drug eluting yessi nt placed in the MID LAD Stent-10/10/2016 Implanted:Qty: 1 on 10/10/2016 by Carmine Villanueva MD Stent Coronary HERR[employer]- VASC DEVICE / / [id number] Description:Drug eluting yessi nt placed in the [...] Diane MD - 09/23/2018 11:41 AM CDT [facility] GI Patient Name: Liana Hodges Procedure Date: [...] pathology results. Procedure Code(s): --- Professional --- 50963, Colonoscopy, flexible; with removal of tumor(s), polyp(s), or other lesion(s) by snare technique 17657, 59, Colonoscopy, flexible; with biopsy, single or multiple CPT copyright 2016 [employer]. All rights reserved. The codes documented in this report are preliminary and upon assessment consultant review may be revised to meet current [...] followup exam in 2 years. TREATMENT: NOF Fine recommendations: 1. Adequate intake of Calcium and [...] found at www.shef.ac.uk/FRAX/tool.aspx Dictated from Location 2: [facility] 08/24/2014 9:55 AM CDT XR DEXA [...] followup exam in 2 years. TREATMENT: NOF Fine recommendations: 1. Adequate intake of Calcium and [...] found at [email or web address].ac.uk/FRAX/tool.aspx Dictated from Location 2: [place], [place] Jackie Tran DO DIAGNOSTIC IMAGING ORDER ANDREW Final Result from Last 3 Months or Most Recently Relevant to Health Maintenance Insurance RX More Design Medicare Part D RX EMDE Commercial [facility] [address] [address] MEDICARE ADVANTAGE HMO [id number] [address] [place] [address] Advance Directives For more information, please contact: [phone] * Full Code (Latest Code Status on [...]
[2024-12-27] MEDS: SIMETHICONE ORAL SUSPENSION 20 MG/0.3 ML 30 ML BOTTLE 1.8 ML PO (06:16)
[2024-12-27 06:29] VITALS: BP 211/54; PULSE 60; RESP 22; O2SAT 99
--- NOTE | 2024-12-27 06:42 | SUR.OPER ---
Patient brought to GI Lab. Instructions for patient undergoing Capsule Endoscopy reviewed with patient. Consent form signed. Sensor array applied to patient's abdomen and connected to recorded. Patient swallowed capsule with ozs of water infused with Simethicone. Patient instructed they may have clear liquids at 0830 this AM and eat or drink at 1030 this AM. Patient instructed to return to GI Lab at 1500 this afternoon for removal of recording device and to call [phone] or to return to the hospital if any nausea and vomiting or abdominal pain is experienced.
--- NOTE | 2024-12-27 16:13 | SUR.OPER ---
Patient returned to the GI Lab at 1510 for recorder box removal. Patient voiced no complaints. States they have understanding of instructions. Patient left ambulatory.
== END 2024-12-27 05:29 | disposition home or self-care (01) ==
PROVIDERS: PCP Nurse Practitioner; Referring Provider Internal Medicine Gastroenterology; Visit Provider Internal Medicine Gastroenterology
PROC: 0DJ07ZZ Inspection of Upper Intestinal Tract, Via Natural or Artificial Opening (ICD-10-PCS; CPT 91110; principal; 2024-12-27 07:00)
DX: D50.9 Iron deficiency anemia, unspecified (principal)
CPT/HCPCS: 91110